=== PATIENT | male | born 1955 | race Caucasian/White ===

== ENCOUNTER 2020-04-23 09:50 | Outpatient (REF) | payer OTHER, SELFPAY ==
[2020-04-23 11:28] LABS: Alanine Aminotransferase 48 U/L (0-40); Albumin Level 4.4 g/dL (3.5-5.0); Alkaline Phosphatase 70 U/L (39-117); Anion Gap 13 (12-20); Aspartate Amino Transferase 25 U/L (5-37); Bilirubin Total 0.4 mg/dL (0.0-1.0); Blood Urea Nitrogen 19 mg/dL (9-16); Carbon Dioxide 30 mmol/L (22-29); Chloride 102 mmol/L (96-108); Cholesterol 209 mg/dL; Estimated Glomerular Filt Rate > 60; Glucose Fasting 113 mg/dL (60-99); HDL Cholesterol 47 mg/dL; LDL Cholesterol Calculated 139 mg/dl; Potassium 4.6 mmol/L (3.3-5.1); Sodium 140 mmol/L (135-145); Triglycerides 117 mg/dL
[2020-04-23 11:55] LABS: Prostate Specific Antigen Scr 6.12 ng/mL (<0.05-4.0); TSH reflex Free T4 2.18 uIU/mL (0.32-4.0)
== END 2020-04-23 09:51 | disposition home or self-care (01) ==
LOC: HO.WFDLDS 09:50
PROVIDERS: PCP Family Medicine; Visit Provider Family Medicine
DX: Z00.00 Encounter for general adult medical examination without abnormal findings (principal); E78.5 Hyperlipidemia, unspecified; Z12.5 Encounter for screening for malignant neoplasm of prostate
CPT/HCPCS: 36415; 80053; 80061; 84153; 84443

== ENCOUNTER → 2020-05-22 10:05 | Outpatient (BNVA) | payer OTHER, SELFPAY | PROVIDERS: PCP Family Medicine; Visit Provider Physician Assistant ==

== ENCOUNTER 2020-06-07 08:27 | Outpatient (REF) | payer OTHER, SELFPAY ==
[2020-06-07 11:20] LABS: Alanine Aminotransferase 56 U/L (0-40); Albumin Level 4.4 g/dL (3.5-5.0); Alkaline Phosphatase 64 U/L (39-117); Anion Gap 12 (12-20); Aspartate Amino Transferase 29 U/L (5-37); Bilirubin Total 0.8 mg/dL (0.0-1.0); Blood Urea Nitrogen 23 mg/dL (9-16); Calcium 9.2 mg/dL (8.4-10.2); Carbon Dioxide 29 mmol/L (22-29); Chloride 103 mmol/L (96-108); Estimated Glomerular Filt Rate > 60; Glucose Fasting 115 mg/dL (60-99); Potassium 4.6 mmol/L (3.3-5.1); Sodium 139 mmol/L (135-145)
== END 2020-06-07 08:28 | disposition home or self-care (01) ==
LOC: HO.WFDLDS 08:27
PROVIDERS: Visit Provider Family Medicine
DX: R74.01 Elevation of levels of liver transaminase levels (principal)
CPT/HCPCS: 36415; 80053

== ENCOUNTER 2020-07-24 08:14 | Outpatient (REF) | payer OTHER, SELFPAY ==
--- NOTE | ~2020-07-24 | US_ITS ---
EXAMINATION: US ABDOMEN LIMITED WITH LIVER ELASTOGRAPHY CLINICAL INFORMATION: Elevated transaminase levels. COMPARISON: None. TECHNIQUE: Real-time imaging of the abdominal viscera. Noninvasive ultrasound liver fibrosis assessment is performed using González ElastPQ point quantification shear wave elastography (pSWE) with a C5-2 MHz transducer. Multiple elastography samples are obtained. FINDINGS: PANCREAS: Normal. The visualized pancreatic head and body are normal in appearance. The remainder of the pancreas is obscured from visualization by the overlying bowel gas. LIVER: Normal. The liver demonstrates normal size, contour and echogenicity. No focal lesion or intrahepatic biliary duct dilatation. The right lobe measures 15.4 cm in length. The left lobe measures 10.8 cm in length. Portal flow is towards the liver (hepatopetal). Shear wave liver elastography median stiffness is 1.79 m/s (reference: normal median stiffness is 1.3 m/s or less). IQR/median stiffness to assess sampling precision is 0.10 (reference: good quality data set is IQR/median stiffness of 0.15 or less). GALLBLADDER: Normal. The gallbladder is physiologically distended without evidence of stones, sludge, polyps, wall thickening or pericholecystic fluid. COMMON BILE DUCT: Normal in caliber measuring 0.3 cm in diameter. RIGHT KIDNEY: Normal. No hydronephrosis. No renal calculi or focal parenchymal lesions. The kidney measures 11.6 cm in maximum dimension. FREE FLUID: None. US/US abdomen li w elastography IMPRESSION: 1. No alteration of hepatic echotexture seen. There is no focal hepatic mass or biliary ductal dilatation. 2. Liver elastography: Measurements are suggestive of compensated advanced chronic liver disease but need further test for confirmation. REFERENCE: Society of Radiologists in Ultrasound Liver Stiffness Thresholds (2020): LIVER STIFFNESS THRESHOLDS: *Liver Stiffness equal or less than 1.3 m/s: High probability of being normal. *Liver Stiffness less than 1.7 m/s: In the absence of other known clinical signs, rules out compensated advanced chronic liver disease. *Liver Stiffness 1.7-2.1 m/s: Suggestive of compensated advanced chronic liver disease but need further test for confirmation. *Liver Stiffness over 2.1 m/s: Rules in compensated advanced chronic liver disease. *Liver Stiffness over 2.4 m/s: Suggestive of clinically significant portal hypertension. QUALITY OF DATA SET: *IQR/Median value equal or less than 0.15 implies a quality data set. *IQR/Median value over 0.15 implies a poor quality data set. SIGNIFICANT CHANGE FROM PRIOR EXAM: Significant change if liver stiffness measurement is 10% or greater from prior exam. OTHER CONSIDERATIONS: The stage of liver fibrosis may be overestimated in the setting of acute hepatitis, liver inflammation, elevated liver function tests, hepatic vascular congestion, obstructive cholestasis, non-fasting state, and infiltrative diseases such as amyloidosis and lymphoma. In some patients with NAFLD, the liver stiffness thresholds for compensated advanced chronic liver disease may be lower. In causes other than viral hepatitis and NAFLD, liver stiffness thresholds are not well established.
== END 2020-07-24 08:15 | disposition home or self-care (01) ==
LOC: HO.US 08:14
PROVIDERS: Visit Provider Family Medicine
DX: R74.01 Elevation of levels of liver transaminase levels (principal)
CPT/HCPCS: 76705; 76981

== ENCOUNTER 2020-08-02 07:02 | Outpatient (REF) | payer OTHER, SELFPAY ==
[2020-08-02 11:06] LABS: Alanine Aminotransferase 40 U/L (0-40); Albumin Level 4.5 g/dL (3.5-5.0); Alkaline Phosphatase 63 U/L (39-117); Anion Gap 12 (12-20); Aspartate Amino Transferase 29 U/L (5-37); Bilirubin Total 0.6 mg/dL (0.0-1.0); Blood Urea Nitrogen 23 mg/dL (9-16); Calcium 9.3 mg/dL (8.4-10.2); Carbon Dioxide 28 mmol/L (22-29); Chloride 106 mmol/L (96-108); Estimated Glomerular Filt Rate > 60; Glucose Fasting 99 mg/dL (60-99); Potassium 4.3 mmol/L (3.3-5.1); Sodium 142 mmol/L (135-145); Total Protein 6.8 g/dL (6.5-8.0)
== END 2020-08-02 07:03 | disposition home or self-care (01) ==
LOC: HO.WFDLDS 07:02
PROVIDERS: Visit Provider Family Medicine
DX: R74.01 Elevation of levels of liver transaminase levels (principal); R73.01 Impaired fasting glucose
CPT/HCPCS: 36415; 80053

== ENCOUNTER 2020-08-14 10:22 | Day surgery (SDC) | payer OTHER, SELFPAY ==
[2020-08-07 15:04] VITALS: BMI 31.3
--- NOTE | 2020-08-13 10:34 | P.CONAN_ITS ---
Documented by User: Hannah Gonsales 08/13/20 10:35 HPI - Anesthesia Eval Consult details Narrative: 65yo M for Colonoscopy +ETOH daily PMFSH Active Problems Active Problems: All Active Problems (Updated 08/07/20 @ 15:03 by Kathleen Rojas) Borderline hyperlipidemia (Acute) Screening for colon cancer (Acute) Laboratory examination ordered as part of a routine general medical examination (Acute) Screening for prostate cancer (Acute) Annual physical exam (Acute) Elevated fasting blood sugar (Acute) Elevated PSA measurement (Acute) Elevated transaminase level (Acute) History of colon polyps (Acute) Past Medical History Medical History Bloating Borderline diabetes Borderline hyperlipidemia Umbilical hernia Family History Family History Father Angina pectoris Mother Asthma Surgical History Surgical History H/O colonoscopy Social History Social History Household Members: Family and None Housing: House Alcohol intake: current Alcohol intake frequency: 3 or more drinks per day Alcohol type: beer Patient Tobacco Use Status: Former Tobacco user Tobacco use type: Cigarette Advance Directives Information Provided: No service: No Current occupational status: employed Current occupation: [employer] Allergies Allergy/AdvReac Type Severity Reaction Status Date / Time No Known Allergies Allergy Verified 08/14/20 10:35 Exam Exam Date and Time: August 13, 2020 1034 Height,Weight and Vital Signs: Height 5 ft 9 in Weight 96.162 kg Pertinent Lab Results Pertinent Lab Results: Laboratory Tests 08/02/20 09:25 Sodium 142 Potassium 4.3 Chloride 106 Carbon Dioxide 28 BUN 23 H Creatinine 0.94 Assessment and Plan Assessment Anesthesia Assessment: Chart Reviewed Documented by User: Reta Adler 08/14/20 11:58 PMFSH Past Medical History Medical History Bloating Borderline diabetes Borderline hyperlipidemia Umbilical hernia Family History Family History Father Angina pectoris Mother Asthma Surgical History Surgical History H/O colonoscopy Social History Social History Household Members: Family and None Housing: House Alcohol intake: current Alcohol intake frequency: 3 or more drinks per day Alcohol type: beer Patient Tobacco Use Status: Former Tobacco user Tobacco use type: Cigarette Advance Directives Information Provided: No service: No Current occupational status: employed Current occupation: [employer] Allergies Allergy/AdvReac Type Severity Reaction Status Date / Time No Known Allergies Allergy Verified 08/14/20 10:35 Exam Airway Mallampati Class: II TM Dist: >3cm Neck ROM: Full Heart: RRR Lungs: CTA Assessment and Plan Assessment Anesthesia Assessment: Anesthesia Plan Discussed and Chart Reviewed Final Anesthetic Review NPO: Yes ASA Class: II Final Preanesthetic Review: Meds/Allgs Chart Reviewed, Consent Obtained/Reviewed and Anes Risks/Benef Reviewed Patient Risk: Low Procedure Risk: Low Anesthetic Plan Anesthetic Plan: MAC: Disposition: Standard PACU
[2020-08-14 10:39] VITALS: BP 141/81; PULSE 83; RESP 16; TEMP 36.4; O2SAT 96
[2020-08-14] MEDS: Lactated Ringers 1,000 ML 100 ML IVCONT (11:00)
--- NOTE | 2020-08-14 11:33 | PC.NURSE ---
Patient stated he drank 3oz of water at [address] Adler notified. No new orders. Okay to proceed with procedure.
--- NOTE | 2020-08-14 11:40 | W.PM.OPN ---
Operative Note Operative Note Date of Service: 08/14/20 Narrative: Pre-op diagnosis: colon cancer screening, history of colon polyps Post-op diagnosis: other ( colon polyps, diverticulosis, hemorrhoids) Procedure: COLONOSCOPY TILL CECUM WITH BIOPSIES AND SNARE POLYPECTOMY Consent: Indications for the procedure and potential complications of bleeding, perforation, reaction to medications and missed diagnosis were discussed with the patient and informed consent was obtained. Instrument: Olympus CF H 190 L variable stiffness adult colonoscope Monitoring: Vital signs and clinical assessment, intermittent blood pressure monitoring, continuous EKG monitoring, Pulse oximetry and Carbon Dioxide monitoring were done throughout the procedure. Colon withdrawl time was 22 minutes. Procedure: The patient was placed in the left lateral decubitis position and pre-procedure medications were administered. After a digital rectal examination of the ano-rectum, the video colonoscope was inserted into the rectum and advanced through the colon to the cecum. The colonoscope was slowly withdrawn in a retrograde panoramic fashion and the colon mucosa was carefully examined including a retroflexed view of the rectum. Findings and interventions are described below. Procedure Difficulty: Without difficulty Findings: Terminal Ileum: Not evaluated Cecum: Normal Ascending Colon: Normal Transverse Colon: Normal Descending Colon: Normal Sigmoid Colon: A 7-8 mm diminutive appearing polyp which was biopsied. Moderate diverticulosis Rectum: A 12-15 mm sessile polyp removed with a hot snare Ano-rectum: Moderate internal hemorrhoids Colon preparation: Good after copious irrigation Impression and Post Procedure Diagnosis: Colonoscopy Findings: One medium sized polyp removed, a 2nd diminutive appearing polyp was biopsied. Moderate diverticulosis seen in the sigmoid colon Moderate hemorrhoids on retroflexed exam. Plan: Await pathology results Patient has an appointment on 08/28/20 in the [facility] with [facility] [place]. Repeat Colonoscopy interval based on path results - in 3-5 years if polyps are adenomatous and due to a hx of adenomatous colon polyps. Above findings were reviewed with the patient and colon polyps and diverticulosis handouts were given in the discharge area Surgeon: Olivier Bender MD Anesthesia: MAC (Jennifer Corbin CRNA & Esperanza June CRNA) Was an Press Operator Assistant used for this Procedure?: Yes Press Operator Assistant: Becca Zuniga Estimated blood loss (mL): 0 Pathology: other (A. SIGMOID POLYP B. RECTAL POLYP) Condition: stable Disposition: PACU
--- NOTE | 2020-08-14 11:40 | MHC.SHP ---
Pre-Procedural Eval Section A Date of Service: 08/14/20 The patient is an INPATIENT: No The History & Physical has been completed within 30 days and I have reviewed it.: No Section B Chief Complaint: Screening Details of Present Illness: Colon cancer screening, history of colon polyps Relevant Family History (Specify if Yes): No Relevant Social History: Tobacco Use (past smoker) Present Medications: see Short Stay Collaborative assessment Medical History: Significant History (Bloating Borderline diabetes Umbilical hernia) History of Previous Operations: Relevant previous surgery/procedure and date(s) ( history of colonoscopy) Allergies: Allergies Allergy/AdvReac Type Severity Reaction Status Date / Time No Known Allergies Allergy Verified 08/14/20 10:35 Review of Systems Sugical H&P ROS: Negative: Constitution, Cardiovascular and Gastrointestinal and Yes, Specify: Respiratory (chronic cough) Exam Surgical H&P Exam: Normal: Heart, Normal: Lungs, Normal: Extremities and Normal: Abdomen Plan Diagnosis/Plan: Unchanged I have reviewed the history and physical and performed a pertinent physical examination on my patient. No changes have occurred unless specified.
[2020-08-14 11:46] VITALS: BP 152/68; PULSE 75; RESP 16; TEMP 36.6; O2SAT 99
[2020-08-14 12:31] VITALS: BP 138/75; PULSE 73; RESP 16; TEMP 36.3; O2SAT 98
== END 2020-08-14 14:30 | disposition home or self-care (01) ==
PROVIDERS: PCP Family Medicine; Visit Provider Internal Medicine Gastroenterology
PROC: 0DJD8ZZ Inspection of Lower Intestinal Tract, Via Natural or Artificial Opening Endoscopic (ICD-10-PCS; CPT 45378; principal; 2020-08-14 11:30)
DX: Z12.11 Encounter for screening for malignant neoplasm of colon (principal); K63.5 Polyp of colon; K62.1 Rectal polyp; K57.30 Diverticulosis of large intestine without perforation or abscess without bleeding; K64.8 Other hemorrhoids; R73.03 Prediabetes; Z86.010 Personal history of colon polyps; Z87.891 Personal history of nicotine dependence
CPT/HCPCS: 45385; 45380; 88305

== ENCOUNTER → 2020-08-28 11:58 | Outpatient (BNVA) | payer OTHER, SELFPAY | PROVIDERS: PCP Family Medicine; Referring Provider Family Medicine; Visit Provider Physician Assistant ==

== ENCOUNTER 2020-08-28 12:41 | Outpatient (REF) | payer OTHER, SELFPAY ==
[2020-08-28 15:04] LABS: Prostate Specific Antigen Scr 6.38 ng/mL (<0.05-4.0)
== END 2020-08-28 12:42 | disposition home or self-care (01) ==
LOC: HO.WFDLDS 12:41
PROVIDERS: Visit Provider Physician Assistant
DX: Z12.5 Encounter for screening for malignant neoplasm of prostate (principal); R97.20 Elevated prostate specific antigen [PSA]; K57.30 Diverticulosis of large intestine without perforation or abscess without bleeding; K64.9 Unspecified hemorrhoids; Z86.010 Personal history of colon polyps
CPT/HCPCS: 36415; 84153

== ENCOUNTER 2021-02-04 10:27 | Outpatient (REF) | payer MEDICARE, SELFPAY ==
[2021-02-04 14:42] LABS: Alanine Aminotransferase 56 U/L (0-40); Albumin Level 4.5 g/dL (3.5-5.0); Alkaline Phosphatase 62 U/L (39-117); Aspartate Amino Transferase 29 U/L (5-37); Bilirubin Direct 0.3 mg/dL (0.0-0.5); Bilirubin Total 0.8 mg/dL (0.0-1.0); Total Protein 7.3 g/dL (6.5-8.0)
== END 2021-02-04 10:28 | disposition home or self-care (01) ==
LOC: HO.WFDLDS 10:27
PROVIDERS: Visit Provider Family Medicine
DX: Z12.5 Encounter for screening for malignant neoplasm of prostate (principal); R74.01 Elevation of levels of liver transaminase levels
CPT/HCPCS: 36415; 80076; 84153

== ENCOUNTER 2021-03-14 10:10 | Outpatient (REF) | payer MEDICARE, SELFPAY ==
--- NOTE | ~2021-03-14 | US_ITS ---
EXAMINATION: US ABDOMEN LIMITED WITH LIVER ELASTOGRAPHY CLINICAL INFORMATION: R74.01 - Elevation of levels of liver transaminase levels COMPARISON: Abdominal ultrasound with liver elastography 07/24/2020. TECHNIQUE: Real-time imaging of the abdominal viscera. Noninvasive ultrasound liver fibrosis assessment is performed using González ElastPQ point quantification shear wave elastography (2D-SWE) with a C5-2 MHz transducer. Multiple elastography samples are obtained. FINDINGS: PANCREAS: The visualized pancreas is normal in size and contour and echogenicity. There is no pancreatic ductal distention or retroperitoneal effusion. Portion pancreatic tail is obscured by bowel gas and not completely imaged. LIVER: Liver is within normal size and smooth in contour. There is increased hepatic parenchymal echogenicity which may be associated with hepatic steatosis. There is no focal hepatic parenchymal lesion or intrahepatic ductal dilatation. The right lobe measures 17.4 cm in length. The left lobe measures 11.7 cm in length. Portal flow is towards the liver (hepatopetal). Shear wave liver elastography median stiffness is 1.89 m/s (reference: normal median stiffness is 1.3 m/s or less). IQR/median stiffness to assess sampling precision is 0.12 (reference: good quality data set is IQR/median stiffness of 0.15 or less). This is compared with prior measurement ultrasound 07/24/2020 of 1.79 m/s (5.5% change from prior exam, not statistically significant). GALLBLADDER: Normal. The gallbladder is physiologically distended without evidence of stones, sludge, polyps, wall thickening or pericholecystic fluid. COMMON BILE DUCT: Normal in caliber measuring 0.3 cm in diameter. RIGHT KIDNEY: Normal. No hydronephrosis. No renal calculi or focal parenchymal lesions. The kidney measures 11.8 cm in maximum dimension. FREE FLUID: None. US/US abdomen li w elastography IMPRESSION: 1. Liver within normal size. Increased parenchymal density consistent with hepatic steatosis. No focal parenchymal lesions. Portal flow towards the liver. 2. Liver elastography: Measurements are suggestive of compensated advanced chronic liver disease but need further test for confirmation. No statistically significant change from prior exam 07/24/2020. 3. No cholelithiasis or biliary ductal dilatation. REFERENCE: Society of Radiologists in Ultrasound Liver Stiffness Thresholds (2020): LIVER STIFFNESS THRESHOLDS: *Liver Stiffness equal or less than 1.3 m/s: High probability of being normal. *Liver Stiffness less than 1.7 m/s: In the absence of other known clinical signs, rules out compensated advanced chronic liver disease. *Liver Stiffness 1.7-2.1 m/s: Suggestive of compensated advanced chronic liver disease but need further test for confirmation. *Liver Stiffness over 2.1 m/s: Rules in compensated advanced chronic liver disease. *Liver Stiffness over 2.4 m/s: Suggestive of clinically significant portal hypertension. QUALITY OF DATA SET: *IQR/Median value equal or less than 0.15 implies a quality data set. *IQR/Median value over 0.15 implies a poor quality data set. SIGNIFICANT CHANGE FROM PRIOR EXAM: Significant change if liver stiffness measurement is 10% or greater from prior exam. OTHER CONSIDERATIONS: The stage of liver fibrosis may be overestimated in the setting of acute hepatitis, liver inflammation, elevated liver function tests, hepatic vascular congestion, obstructive cholestasis, non-fasting state, and infiltrative diseases such as amyloidosis and lymphoma. In some patients with NAFLD, the liver stiffness thresholds for compensated advanced chronic liver disease may be lower. In causes other than viral hepatitis and NAFLD, liver stiffness thresholds are not well established.
== END 2021-03-14 10:11 | disposition home or self-care (01) ==
LOC: HO.US 10:10
PROVIDERS: Visit Provider Family Medicine
DX: R74.01 Elevation of levels of liver transaminase levels (principal)
CPT/HCPCS: 76705; 76981

== ENCOUNTER 2022-11-06 15:45 | Outpatient (AMB) | payer MEDICARE, SELFPAY ==
--- NOTE | 2022-11-06 16:02 | A.OFFPC_ITS ---
Vital Signs 11/06/22 16:03 Height 5 ft 8 in Weight 203 lb 4 oz BMI 30.9 BP 130/72 Blood Pressure Location Lt brachial Position Sitting Pulse 95 Pulse Source Pulse Oximeter Pulse Oximetry (%) 98 Oxygen Delivery Method Room Air Intake Visit Reasons: Annual PE Intake Note: Patient is here for his physical today. Allergies No Known Allergies Allergy (Verified 10/29/21 08:55) Tobacco use date assessed: 10/29/21 Fall risk assessment: No Falls in past year Last assessed Fall Risk: 11/06/22 Dental Screening Did you have a dental visit in the last 12 months?: Yes Did you have a dental problem in the last 6 months where you did not have access to dental care?: No Was dental information given to patient?: Patient has dentist HPI Annual PE HPI Details 67 y/o male presents for an extended exa m with f/u labs and health maintenance. No recent labs to review. PSA had been high. PFSH Medical History Borderline hyperlipidemia Umbilical hernia Bloating Borderline diabetes Surgical History H/O colonoscopy Family History Father Angina pectoris Mother Asthma Social History Household Members: Family and None Housing: House Alcohol intake: current Alcohol intake frequency: 3 or more drinks per day Alcohol type: beer Patient Tobacco Use Status: Former Tobacco user Tobacco use type: Cigarette e-Cigarette/Vaping Use: Never Used Second Hand Smoke Exposure: No service: No Current occupational status: retired Current occupational exposures/hazards: No Cognitive needs: No Hearing needs: No Vision needs: No Questionnaire PHQ-9 Over the last 2 weeks, how often have you been bothered by any of the following problems? 1. Little interest or pleasure in doing things: not at all 2. Feeling down, depressed, or hopeless: not at all 3. Trouble falling or staying asleep, or sleeping too much: not at all 4. Feeling tired or having little energy: not at all 5. Poor appetite or overeating: not at all 6. Feeling bad about yourself - or that you are a failure or have let yourself or your family down: not at all 7. Trouble concentrating on things, such as reading the newspaper or watching television: not at all 8. Moving or speaking so slowly that other people could have noticed. Or the opposite - being so fidgety or restless that you have been moving around a lot more than usual: not at all 9. Thoughts that you would be better off or of hurting yourself in some way: not at all Total score: 0 Source: Developed by Drs. Aman Barth, Alisson Espinosa, Neno Jasso and colleagues, with an educational rufus from [employer]. Thrive Questionnaire Date Thrive assessed: 02/04/21 I am a: Patient What is your living situation today?: I have a steady place to live Within the past 12 months, did the food you bought not last and you didn't have the money to get more?: Never true Within the past 12 months, did you worry whether your food would run out before you got money to buy more?: Never true Do you have trouble paying for medicines?: No Do you have trouble getting transportation to medical appointments?: No Do you have trouble paying your heating and electricity bill?: No Do you have trouble taking care of your child, family member or friend?: No Do you have trouble with day-to-day activities such as bathing, preparing meals, shopping, managing finances, etc.?: No Are you currently unemployed and looking for a job?: No Are you interested in more education?: Yes AUDIT C Alcohol Use Questionnaire (AUDIT-C) 1. How often do you have a drink containing alcohol?: Monthly or less 2. How many drinks containing alcohol do you have on a typical day when you are drinking?: 3 or 4 3. How often do you have six or more drinks on one occasion?: Never Total Score: 2 IAN-7 AMB Questionnaire IAN-7 Date IAN - 7 assessed: 11/06/22 Feeling nervous, anxious, or on edge: 0 = Not at all Not being able to stop or control worryin = Not at all Worrying too much about different things: 0 = Not at all Trouble relaxin = Not at all Being so restless that it is hard to sit still: 0 = Not at all Becoming easily annoyed or irritable: 0 = Not at all Feeling afraid as if something awful might happen: 0 = Not at all Total IAN-7 score (0-4 normal; 5-9 mild; 10-14 moderate; 15-21 severe): 0 Source: Developed by Drs. Aman Barth, Alisson Espinosa, Neno Jasso and colleagues, with an educational rufus from [employer]. Review of Systems Const Denies chills, Denies fatigue, Denies fever(s), Denies headache(s) and Denies weakness Eyes Denies change in vision ENT Denies dizziness, Denies headache(s), Denies hearing loss, Denies nasal congestion, Denies sinus pain, Denies sinus pressure and Denies sore throat Card Denies chest pain, Denies lightheadedness, Denies dyspnea and Denies other (palpitations) Resp Denies cough, Denies dyspnea and Denies wheezing GI Denies abdominal pain, Denies melena, Denies hematochezia, Denies change in bowel habits, Denies dyspepsia and Denies nausea Denies hematuria and Denies dysuria Musc Denies abnormal gait, Denies myalgias, Denies arthralgias, Denies numbness and Denies tingling Skin/Breast Denies rash, Denies unusual bruising and Denies wounds Neuro Denies abnormal gait, Denies dizziness, Denies headache(s), Denies memory loss, Denies numbness, Denies Sensory deficit (Neuro), Denies tingling and Denies weakness Psych Denies anxiety, Denies depression and Denies memory loss Endo Denies cold intolerance, Denies fatigue, Denies heat intolerance, Denies polydipsia and Denies polyuria Dioni/Lymph Denies easy bleeding and Denies easy bruising Aller/Immun Denies wheezing Physical exam (Primary Care) Vital Signs: Last Vital Signs Pulse 95 11/06/22 16:03 BP 130/72 11/06/22 16:03 Pulse Ox 98 11/06/22 16:03 Oxygen Delivery Method Room Air 11/06/22 16:03 BMI result Body Mass Index 30.9 Tobacco/Smoking Status: Tobacco use Status Tobacco use date assessed 10/29/21 11/06/22 16:11 Patient Tobacco Use Status Former Tobacco user 11/06/22 16:11 Tobacco use type Cigarette 11/06/22 16:11 e-Cigarette/Vaping Use Never Used 11/06/22 16:11 PHQ-9: PHQ-9 Score PHQ-9: Total score 0 11/06/22 16:23 Thrive Assessment: Date of Thrive Assessment Date Thrive assessed 02/04/21 11/06/22 16:11 Const General: no acute distress, well developed, alert and awake Nutritional Appearance: well nourished Orientation/consciousness: patient oriented x3 HENMT Head: Yes normocephalic and Yes atraumatic Ears: hearing grossly normal bilaterally and TM's normal bilaterally General nose exam: Normal external nose present and Normal nares present Mouth: Normal oral and palatal mucosa present and moist mucous membranes Teeth and gingiva: dentition normal Throat: Yes posterior oropharynx normal Eyes General: appearance normal, both eyes and all related structures Pupils: Equal, round and reactive pupils present and Pupil accommodation reflex normal EOM: EOMs intact bilaterally Neck Neck: Yes normal visual inspection, Yes no lymphadenopathy and Yes trachea midline Thyroid: Thyroid normal Carotids: no bruits Lymphatic: no lymphadenopathy noted Chest Chest palpation & inspection: normal inspection of the chest Resp Effort & Inspection: normal respiratory effort Auscultation: clear to auscultation bilaterally Cardio Rate: regular rate Rhythm: regular rhythm Heart sounds: S1 normal heart sound present, S2 normal heart sound present, no gallops, no murmurs and no rubs Bruits: no abdominal aortic bruits and no carotid bruits GI Palpation (GI): No Abdominal aortic bruit present, Soft to palpation, nontender, No hepatosplenomegaly present and No Rebound tenderness present Auscultation: normal bowel sounds General: Yes no CVA tenderness Back/Spine/Pelvis Back: no CVA tenderness Cervical Spine: cervical ROM normal and No Cervical spine tenderness Thoracic/Lumbar Spine: thoraco-lumbar ROM normal, No pain with thoraco-lumbar ROM, No thoracic spinal tenderness and No lumbar spinal tenderness Skin Lesions: no lesions Rashes: no rashes Trauma: no lacerations or abrasions Wounds: no wounds Nails: normal Neuro General: patient oriented x3 Cranial nerves: Yes Equal, round and reactive pupils present Cognition (Neuro): normal cognition Gait exam (Neuro): Normal gait present Motor exam (neuro): 5/5 motor strength present throughout Sensory Exam: No Sensory deficit (Neuro) Deep tendon reflexes (DTR's): Right patellar reflex intensity grade: 2+ and Left patellar reflex intensity grade: 2+ Extrem General: Yes normal to inspection and No edema Psych Appearance: grossly normal Affect: normal affect Attitude: cooperative Thought process: Normal thought process present Assessment and Plan Assessment & Plan (1) Elevated liver enzymes: Code(s): R74.8 - Abnormal levels of other serum enzymes Plan: Elevated liver enzymes in the past. Patient is still consuming about 5 alcoholic drinks per night Recheck liver enzymes See below (2) Alcohol consumption of more than two drinks per day: Code(s): Z78.9 - Other specified health status Plan: As mentioned above patient is drinking about 5 alcoholic beverages per night. He does not like water or many other things to drink but does like soda. He will try switching some of his drinks to diet soda and will continue to wean down his alcoholic beverages. (3) Prostate cancer: Code(s): C61 - Malignant neoplasm of prostate Plan: History of prostate cancer now S/P prostatectomy Follow-up with urology has recommended (4) History of prostatectomy: Code(s): Z90.79 - Acquired absence of other genital organ(s) Plan: As above (5) Screening for colon cancer: Code(s): Z12.11 - Encounter for screening for malignant neoplasm of colon Plan: Will discuss at follow-up appointment (6) Annual physical exam: Code(s): Z00.00 - Encounter for general adult medical examination without abnormal findings Plan: 67-year-old male presents for extended exam Encouraged healthy diet and exercise Coding Level of Care Code Est Pt Level 4 (82071) Diagnoses Elevated liver enzymes R74.8 Alcohol consumption of more than two drinks per day Z78.9 Prostate cancer C61 History of prostatectomy Z90.79 Screening for colon cancer Z12.11 Annual physical exam Z00.00
[2022-11-06 16:03] VITALS: BP 130/72; PULSE 95; O2SAT 98; BMI 30.9
== END 2022-11-06 16:51 | disposition home or self-care (01) ==
PROVIDERS: PCP Family Medicine; Visit Provider Family Medicine
DX: R74.8 Abnormal levels of other serum enzymes (principal); Z78.9 Other specified health status; C61 Malignant neoplasm of prostate; Z90.79 Acquired absence of other genital organ(s); Z12.11 Encounter for screening for malignant neoplasm of colon; Z00.00 Encounter for general adult medical examination without abnormal findings
CPT/HCPCS: 99214

== ENCOUNTER 2022-11-24 13:02 | Outpatient (REF) | payer MEDICARE, SELFPAY | END 2022-11-24 13:03 | disposition home or self-care (01) | LOC: HO.WFDLDS 13:02 | PROVIDERS: Visit Provider Family Medicine | DX: Z00.00 Encounter for general adult medical examination without abnormal findings (principal); Z12.5 Encounter for screening for malignant neoplasm of prostate; E53.8 Deficiency of other specified B group vitamins | CPT/HCPCS: 36415; 80053; 80061; 82607; 82746; 84153; 84443; 85025 ==

== ENCOUNTER 2022-11-27 15:23 | Outpatient (AMB) | payer MEDICARE, SELFPAY ==
--- NOTE | 2022-11-27 15:19 | A.OFFPC_ITS ---
Intake Visit Reasons: f/u CPE-labs Intake Note: Patient is calling to follow up on his labs today. Allergies No Known Allergies Allergy (Verified 11/27/22 15:20) Tobacco use date assessed: 11/27/22 Fall risk assessment: No Falls in past year Last assessed Fall Risk: 11/27/22 HPI f/u CPE-labs HPI Details 67 y/o male presents to f/u CPE-labs via telemedicine. Labs were drawn 11/24/22. Reviewed labs with pt. Elevated fasting glucose of 102. TC 213. LDL 141. HDL 54. PFSH Medical History Borderline hyperlipidemia Umbilical hernia Bloating Borderline diabetes Surgical History H/O colonoscopy Family History Father Angina pectoris Mother Asthma Social History Household Members: Family and None Housing: House Alcohol intake: current Alcohol intake frequency: 3 or more drinks per day Alcohol type: beer Patient Tobacco Use Status: Former Tobacco user Tobacco use type: Cigarette e-Cigarette/Vaping Use: Never Used Second Hand Smoke Exposure: No service: No Current occupational status: retired Current occupational exposures/hazards: No Cognitive needs: No Hearing needs: No Vision needs: No Questionnaire Thrive Questionnaire Date Thrive assessed: 02/04/21 IAN-7 AMB Questionnaire IAN-7 Date IAN - 7 assessed: 11/06/22 Source: Developed by Drs. Aman Barth, Alisson Espinosa, Neno Jasso and colleagues, with an educational rufus from [employer]. Review of Systems Const Denies chills, Denies fatigue, Denies fever(s), Denies headache(s) and Denies weakness ENT Denies dizziness and Denies headache(s) Card Denies dyspnea Resp Denies cough, Denies dyspnea, Denies wheezing and Denies other (shortness of breath) Musc Denies numbness and Denies tingling Neuro Denies dizziness, Denies headache(s), Denies numbness, Denies tingling and Denies weakness Psych Denies anxiety and Denies depression Endo Denies fatigue Aller/Immun Denies wheezing Physical exam (Primary Care) Tobacco/Smoking Status: Tobacco use Status Tobacco use date assessed 11/27/22 11/27/22 15:21 Patient Tobacco Use Status Former Tobacco user 11/27/22 15:21 Tobacco use type Cigarette 11/27/22 15:21 e-Cigarette/Vaping Use Never Used 11/27/22 15:21 Thrive Assessment: Date of Thrive Assessment Date Thrive assessed 02/04/21 11/27/22 15:21 Telehealth Telehealth Location of provider rendering services: practice address Location of patient: address on file Patient Identification confirmed using: Name, : Yes Telehealth method: voice only Patient verbally consented to treatment: Yes Patient verbally consented to billing insurance company: Yes Patient informed of any privacy concerns related to visit: Yes Minutes spent on Phone/Video with Pt.: 12 Assessment and Plan Assessment & Plan (1) Elevated fasting blood sugar: Code(s): R73.01 - Impaired fasting glucose Plan: Mildly?elevated?fasting?blood?sugar Encouraged?decrease?in?dietary?sugars. Patient?wants?to?switch?from?alcohol?beverages?2?soft?drinks. Advised?he?consider?diet?soft?d rinks?and?preferably?drink?those?in?moderation?as?well. Has?some?issues?with?insight?into?dietary?changes.??Will?ask?the?nurse?navigator ?to?review (2) Hyperlipidemia: Code(s): E78.5 - Hyperlipidemia, unspecified Plan: LDL?cholesterol?is?elevated.??His?HDL?is?good?and?ratios?are?rather?goo d?as?well. Patient?could?use?further?insight?into?dietary?changes.??Referred?to?nurse?navig ator Will?repeat?lipids?in?a?few?months. Orders: Orders Lipid Panel Today Z00.00 - Encounter for general adult medical examination without abnormal findings Comprehensive [place]. Panel Fast Today Z00.00 - Encounter for general adult medical examination without abnormal findings Hemoglobin A1c Today R73.01 - Impaired fasting glucose Referrals Nurse Navigator Referral E78.5 - Hyperlipidemia, unspecified, R73.01 - Impaired fasting glucose Coding Level of Care Code Tele Est Pt Level 2 (26647) Diagnoses Elevated fasting blood sugar R73.01 Hyperlipidemia E78.5
== END 2022-11-27 15:45 ==
LOC: HO.HMGFM 15:23
PROVIDERS: PCP Family Medicine; Visit Provider Family Medicine
DX: R73.01 Impaired fasting glucose (principal); E78.5 Hyperlipidemia, unspecified
CPT/HCPCS: 99442

== ENCOUNTER 2023-01-20 09:53 | Outpatient (REF) | payer MEDICARE, SELFPAY ==
[2023-01-20 10:49] LABS: Appearance Urine Clear; Color Urine Yellow; Glucose Urine UA Negative (Negative); Leukocyte Esterase Urine Negative (Negative); Nitrite Urine Negative (Negative); Urine Blood Negative (Negative); Urine Ketones Negative (Negative); Urine Protein Negative (Neg-Trace)
[2023-01-20 11:04] LABS: Estimated Average Glucose 97 mg/dL; Hemoglobin A1C 115.8331 umol/L
[2023-01-20 12:31] LABS: Alanine Aminotransferase 49 U/L (0-40); Albumin Level 4.5 g/dL (3.5-5.0); Alkaline Phosphatase 56 U/L (39-117); Anion Gap 13 (12-20); Aspartate Amino Transferase 29 U/L (5-37); Bilirubin Total 0.8 mg/dL (0.0-1.0); Blood Urea Nitrogen 12 mg/dL (9-16); Calcium 9.5 mg/dL (8.4-10.2); Carbon Dioxide 28 mmol/L (22-29); Chloride 104 mmol/L (96-108); Cholesterol 227 mg/dL (<200); Estimated Glomerular Filt Rate > 60; Glucose Fasting 100 mg/dL (60-99); HDL Cholesterol 54 mg/dL (>40); LDL Cholesterol Calculated 153 mg/dL (<100); Potassium 4.8 mmol/L (3.3-5.1); Sodium 140 mmol/L (135-145); Total Protein 7.3 g/dL (6.5-8.0); Triglycerides 104 mg/dL (<150)
[2023-01-20 12:37] LABS: Creatinine Urine 74.91 mg/dL; Microalbumin Urine < 5.0 mg/L
== END 2023-01-20 09:54 | disposition home or self-care (01) ==
LOC: HO.WFDLDS 09:53
PROVIDERS: Visit Provider Family Medicine
DX: Z00.00 Encounter for general adult medical examination without abnormal findings (principal); R73.01 Impaired fasting glucose; I10 Essential (primary) hypertension
CPT/HCPCS: 36415; 80053; 80061; 81003; 82043; 82570; 83036

== ENCOUNTER 2023-01-22 11:21 | Outpatient (AMB) | payer MEDICARE, SELFPAY ==
--- NOTE | 2023-01-22 11:28 | MHC.PC.OV ---
Vital Signs 01/22/23 11:29 Height 5 ft 8 in Weight 200 lb 6 oz BMI 30.5 BP 122/56 L Blood Pressure Location Lt brachial Position Sitting Respiration 13 Pulse 73 Pulse Source Pulse Oximeter Pulse Oximetry (%) 100 Oxygen Delivery Method Room Air Intake Visit Reasons: f/u elevated liver enzymes, see comments Intake Note: Patient is here to follow up for labs. Patient reports no concerns at this time. [employer] Required: No Accompanied by: Self / Same As Patient Allergies No Known Allergies Allergy (Verified 01/22/23 11:36) Tobacco use date assessed: 11/27/22 HPI f/u elevated liver enzymes, see comments HPI Details 68 y/o male presents to f/u labs including lipids, liver enzymes and mildly elevated fasting blood sugars. Labs were drawn 01/20/23. Reviewed labs with pt. A1c 5.0%. Elevated ALT of 49. Pt notes he does drink EtOH, 3-4 beers a day. TC 227. LDL 153. HDL 54. PFSH Medical History Borderline hyperlipidemia Umbilical hernia Bloating Borderline diabetes Surgical History H/O colonoscopy Family History Father Angina pectoris Mother Asthma Social History Household Members: Family and None Housing: House Alcohol intake: current Alcohol intake frequency: 3 or more drinks per day Alcohol type: beer Patient Tobacco Use Status: Former Tobacco user Tobacco use type: Cigarette e-Cigarette/Vaping Use: Never Used Second Hand Smoke Exposure: No service: No Current occupational status: retired Current occupational exposures/hazards: No Cognitive needs: No Hearing needs: No Vision needs: No Questionnaire Thrive Questionnaire Date Thrive assessed: 01/22/23 I am a: Patient What is your living situation today?: I have a steady place to live Within the past 12 months, did the food you bought not last and you didn't have the money to get more?: Never true Within the past 12 months, did you worry whether your food would run out before you got money to buy more?: Never true Do you have trouble paying for medicines?: No Do you have trouble getting transportation to medical appointments?: No Do you have trouble paying your heating and electricity bill?: No Do you have trouble taking care of your child, family member or friend?: No Do you have trouble with day-to-day activities such as bathing, preparing meals, shopping, managing finances, etc.?: No Are you currently unemployed and looking for a job?: No Are you interested in more education?: No Please select the resources that you would like help with: None Currently or been in a relationship where the following occur: no concerns reported IAN-7 AMB Questionnaire IAN-7 Date IAN - 7 assessed: 11/06/22 Source: Developed by Drs. Aman Barth, Alisson Espinosa, Neno Jasso and colleagues, with an educational rufus from [employer]. Review of Systems Const Denies chills, Denies fatigue, Denies fever(s), Denies headache(s) and Denies weakness ENT Denies dizziness and Denies headache(s) Card Denies dyspnea Resp Denies cough, Denies dyspnea, Denies wheezing and Denies other (shortness of breath) Musc Denies numbness and Denies tingling Neuro Denies dizziness, Denies headache(s), Denies numbness, Denies tingling and Denies weakness Psych Denies anxiety and Denies depression Endo Denies fatigue Aller/Immun Denies wheezing Physical exam (Primary Care) Vital Signs: Last Vital Signs Pulse 73 01/22/23 11:29 Resp 13 01/22/23 11:29 BP 122/56 L 01/22/23 11:29 Pulse Ox 100 01/22/23 11:29 Oxygen Delivery Method Room Air 01/22/23 11:29 BMI result Body Mass Index 30.5 Tobacco/Smoking Status: Tobacco use Status Tobacco use date assessed 11/27/22 01/22/23 11:29 Patient Tobacco Use Status Former Tobacco user 01/22/23 11:29 Tobacco use type Cigarette 01/22/23 11:29 e-Cigarette/Vaping Use Never Used 01/22/23 11:29 Thrive Assessment: Date of Thrive Assessment Date Thrive assessed 01/22/23 01/22/23 11:44 Currently or been in a relationship where the following occur: no concerns reported Const General: well developed; No acute distress Nutritional Appearance: well nourished Orientation/consciousness: patient oriented x3 [facility] Head: Yes normocephalic and Yes atraumatic Eyes General: appearance normal, both eyes and all related structures Pupils: Equal, round and reactive pupils present EOM: EOMs intact bilaterally Resp Effort & Inspection: normal respiratory effort Neuro General: patient oriented x3 and gait normal Cranial nerves: Yes Equal, round and reactive pupils present Psych Affect: normal affect Assessment and Plan Assessment & Plan (1) Elevated liver enzymes: Code(s): R74.8 - Abnormal levels of other serum enzymes Plan: Mildly?elevated?liver?enzymes.??May?be?multifactorial; advised?decreasing?alcohol?intake, hydrating?well,?avoiding?Tylenol?and?advised?weight?loss. Will?continue?to?follow (2) Hyperlipidemia: Code(s): E78.5 - Hyperlipidemia, unspecified Plan: LDL?cholesterol?increased. Encouraged?diet?low?in?saturated?fats?and?cholesterol,?encouraged?weight?loss Advised?atorvastatin.??Patient?would?like?to?trial?another?3?months?of?lifestyle?changes. Will?continue?lifestyle?changes?but?we?discussed?that?if?he?is?still?having?difficulties?controlling?cholesterol?we?should?consider?using?a?statin?medication. Advised?atorvastatin?and?patient?will?look?this?up?and?think?about?it. (3) Elevated fasting blood sugar: Code(s): R73.01 - Impaired fasting glucose Plan: Patient?has?mildly?elevated?fasting?blood?sugars?and?A1c?is?within?normal?range. No?medications?required?at?this?time.??Did?advise?decreasing?sugars?and?starches?in?diet.??Also?advised?decrease?in?beer/alcohol (4) Alcohol consumption of more than two drinks per day: Code(s): Z78.9 - Other specified health status Plan: As?above,?advised?patient?wean?down?alcohol?use He?is?working?on?the Coding Level of Care Code Est Pt Level 4 (76100) Diagnoses Elevated liver enzymes R74.8 Hyperlipidemia E78.5 Elevated fasting blood sugar R73.01 Alcohol consumption of more than two drinks per day Z78.9
[2023-01-22 11:29] VITALS: BP 122/56; PULSE 73; RESP 13; O2SAT 100; BMI 30.5
== END 2023-01-22 12:21 | disposition home or self-care (01) ==
PROVIDERS: PCP Family Medicine; Visit Provider Family Medicine
DX: R74.8 Abnormal levels of other serum enzymes (principal); E78.5 Hyperlipidemia, unspecified; R73.01 Impaired fasting glucose; Z78.9 Other specified health status
CPT/HCPCS: 99214

== ENCOUNTER 2023-05-22 09:17 | Outpatient (REF) | payer MEDICARE, SELFPAY ==
[2023-05-22 12:04] LABS: Alanine Aminotransferase 19 U/L (0-40); Albumin Level 4.2 g/dL (3.5-5.0); Alkaline Phosphatase 58 U/L (39-117); Anion Gap 11 (12-20); Aspartate Amino Transferase 22 U/L (5-37); Bilirubin Total 0.5 mg/dL (0.0-1.0); Blood Urea Nitrogen 14 mg/dL (9-16); Calcium 9.4 mg/dL (8.4-10.2); Carbon Dioxide 29 mmol/L (22-29); Chloride 104 mmol/L (96-108); Cholesterol 172 mg/dL (<200); Estimated Glomerular Filt Rate > 60; Glucose Fasting 91 mg/dL (60-99); HDL Cholesterol 57 mg/dL (>40); LDL Cholesterol Calculated 103 mg/dL (<100); Potassium 4.8 mmol/L (3.3-5.1); Sodium 139 mmol/L (135-145); Total Protein 7.1 g/dL (6.5-8.0); Triglycerides 63 mg/dL (<150)
== END 2023-05-22 09:18 | disposition home or self-care (01) ==
LOC: HO.WFDLDS 09:17
PROVIDERS: Visit Provider Family Medicine
DX: Z00.00 Encounter for general adult medical examination without abnormal findings (principal); E78.5 Hyperlipidemia, unspecified
CPT/HCPCS: 36415; 80053; 80061

== ENCOUNTER 2023-05-28 09:24 | Outpatient (AMB) | payer MEDICARE, SELFPAY ==
[2023-05-28 09:27] VITALS: BP 120/70; PULSE 72; O2SAT 98; BMI 28.5
--- NOTE | 2023-05-28 09:27 | MHC.PC.OV ---
Vital Signs 05/28/23 09:27 Height 5 ft 8 in Weight 187 lb 6 oz BMI 28.5 BP 120/70 Blood Pressure Location Lt brachial Pulse 72 Pulse Source Pulse Oximeter Pulse Oximetry (%) 98 Oxygen Delivery Method Room Air Intake Visit Reasons: f/u hyperlipidemia Intake Note: Patient is here for follow up on hyperlipidemia. Patient is concerned about bronchitis. Allergies No Known Allergies Allergy (Verified 05/28/23 09:30) Medication List - Last Reconciled 05/28/23 by Yg Mittal MD No Known Home Meds Tobacco use date assessed: 05/28/23 Fall risk assessment: No Falls in past year Last assessed Fall Risk: 05/28/23 Dental Screening Dental Screen Date: 05/28/23 Did you have a dental visit in the last 12 months?: Yes Did you have a dental problem in the last 6 months where you did not have access to dental care?: No Was dental information given to patient?: Patient has dentist HPI f/u hyperlipidemia HPI Details 68 y/o male presents to f/u hyperlipidemia. Pt had wanted to trial another 3 months of lifestyle changes last office visit in January. Labs were drawn 05/22/23. Reviewed labs with pt. Triglcyerides 63. TC 172. LDL improved from 153 to 103. HDL 57. Has lost about 13 lbs since last office visit in January - 200 lbs to 187 lbs. He states he has been eating better and has been watching his diet. He exercises every day. Pt has complaints of a post viral cough syndrome. HPI Comments History of Present Illness Details Documentation assistance for gY Mittal MD, was provided by Meño De La Cruz, Quarrying Specialist on 05/28/2023 9:52 AM EST. [place], Dr. Mittal, have read, observed, and verified documentation. PFSH Medical History Borderline hyperlipidemia Umbilical hernia Bloating Borderline diabetes Surgical History H/O colonoscopy Family History Father Angina pectoris Mother Asthma Social History Household Members: Family and None Housing: House Alcohol intake: current Alcohol intake frequency: 3 or more drinks per day Alcohol type: beer Patient Tobacco Use Status: Former Tobacco user Tobacco use type: Cigarette e-Cigarette/Vaping Use: Never Used Second Hand Smoke Exposure: No service: No Current occupational status: retired Current occupational exposures/hazards: No Cognitive needs: No Hearing needs: No Vision needs: No Questionnaire PHQ-9 Over the last 2 weeks, how often have you been bothered by any of the following problems? 1. Little interest or pleasure in doing things: not at all 2. Feeling down, depressed, or hopeless: not at all 3. Trouble falling or staying asleep, or sleeping too much: not at all 4. Feeling tired or having little energy: not at all 5. Poor appetite or overeating: not at all 6. Feeling bad about yourself - or that you are a failure or have let yourself or your family down: not at all 7. Trouble concentrating on things, such as reading the newspaper or watching television: not at all 8. Moving or speaking so slowly that other people could have noticed. Or the opposite - being so fidgety or restless that you have been moving around a lot more than usual: not at all 9. Thoughts that you would be better off or of hurting yourself in some way: not at all Total score: 0 Depression Screening Interpretation: Negative Depression Screening Done: Yes Source: Developed by Drs. Aman Barth, Alisson Espinosa, Neno Jasso and colleagues, with an educational rufus from [employer]. Thrive Questionnaire Date Thrive assessed: 05/28/23 I am a: Patient What is your living situation today?: I have a steady place to live Within the past 12 months, did the food you bought not last and you didn't have the money to get more?: Never true Within the past 12 months, did you worry whether your food would run out before you got money to buy more?: Never true Do you have trouble paying for medicines?: No Do you have trouble getting transportation to medical appointments?: No Do you have trouble paying your heating and electricity bill?: No Do you have trouble taking care of your child, family member or friend?: No Do you have trouble with day-to-day activities such as bathing, preparing meals, shopping, managing finances, etc.?: No Are you currently unemployed and looking for a job?: No Are you interested in more education?: No THRIVE Score: 0 AUDIT C Alcohol Use Questionnaire (AUDIT-C) 1. How often do you have a drink containing alcohol?: 4 or more times a week 2. How many drinks containing alcohol do you have on a typical day when you are drinking?: 3 or 4 3. How often do you have six or more drinks on one occasion?: Daily or almost daily Total Score: 9 IAN-7 AMB Questionnaire IAN-7 Date IAN - 7 assessed: 05/28/23 Feeling nervous, anxious, or on edge: 0 = Not at all Not being able to stop or control worryin = Not at all Worrying too much about different things: 0 = Not at all Trouble relaxin = Not at all Being so restless that it is hard to sit still: 0 = Not at all Becoming easily annoyed or irritable: 0 = Not at all Feeling afraid as if something awful might happen: 0 = Not at all Total IAN-7 score (0-4 normal; 5-9 mild; 10-14 moderate; 15-21 severe): 0 Source: Developed by Drs. Aman Barth, Alisson Espinosa, Neno Jasso and colleagues, with an educational rufus from [employer]. Review of Systems Const Denies chills, Denies fatigue, Denies fever(s), Denies headache(s) and Denies weakness ENT Denies dizziness and Denies headache(s) Card Denies dyspnea Resp Denies cough, Denies dyspnea, Denies wheezing and Denies other (shortness of breath) Musc Denies numbness and Denies tingling Neuro Denies dizziness, Denies headache(s), Denies numbness, Denies tingling and Denies weakness Psych Denies anxiety and Denies depression Endo Denies fatigue Aller/Immun Denies wheezing Physical exam (Primary Care) Vital Signs: Last Vital Signs Pulse 72 05/28/23 09:27 BP 120/70 05/28/23 09:27 Pulse Ox 98 05/28/23 09:27 Oxygen Delivery Method Room Air 05/28/23 09:27 BMI result Body Mass Index 28.5 Tobacco/Smoking Status: Tobacco use Status Tobacco use date assessed 05/28/23 05/28/23 09:32 Patient Tobacco Use Status Former Tobacco user 05/28/23 09:31 Tobacco use type Cigarette 05/28/23 09:31 e-Cigarette/Vaping Use Never Used 05/28/23 09:31 PHQ-9: PHQ-9 Score PHQ-9: Total score 0 05/28/23 09:37 Depression Screening Interpretation: Negative Thrive Assessment: Date of Thrive Assessment Date Thrive assessed 05/28/23 05/28/23 09:37 Const General: well developed; No acute distress Nutritional Appearance: well nourished Orientation/consciousness: patient oriented x3 [facility] Head: Yes normocephalic and Yes atraumatic Eyes General: appearance normal, both eyes and all related structures Pupils: Equal, round and reactive pupils present EOM: EOMs intact bilaterally Resp Effort & Inspection: normal respiratory effort Auscultation: clear to auscultation bilaterally Cardio Rate: regular rate Rhythm: regular rhythm Heart sounds: S1 normal heart sound present, S2 normal heart sound present, no gallops, no murmurs and no rubs Neuro General: patient oriented x3 and gait normal Cranial nerves: Yes Equal, round and reactive pupils present Psych Affect: normal affect Assessment and Plan Assessment & Plan (1) Hyperlipidemia: Code(s): E78.5 - Hyperlipidemia, unspecified Plan: Lipids?are?improved?and?in?normal?range Continue?diet?low?in?saturated?fats?and?cholesterol Continue?weight?loss?and?exercise (2) Alcohol consumption of more than two drinks per day: Code(s): Z78.9 - Other specified health status Plan: Patient?says?he?has?been?trying?to?cut?down?but?has?had?difficulty?doing?so Agrees?to?a?referral?to?the?[facility]?which?is?made?today (3) Post-viral cough syndrome: Code(s): R05.8 - Other specified cough Plan: Mild?coarseness?of?breath?sounds?but?otherwise?clear Should?continue?to?resolve. If?not?resolved?by?6?weeks,?he?will?let?me?know,?would?start?with?a?chest?x-ray Orders: Orders Comprehensive [place]. Panel Fast Today Z00.00 - Encounter for general adult medical examination without abnormal findings Complete Blood Count Auto Diff Today Z00.00 - Encounter for general adult medical examination without abnormal findings Lipid Panel Today Z00.00 - Encounter for general adult medical examination without abnormal findings Microalbumin, Random (w Creat) Today I10 - Essential (primary) hypertension TSH reflex Free T4 Today Z00.00 - Encounter for general adult medical examination without abnormal findings UA and rflx microscopic Today Z00.00 - Encounter for general adult medical examination without abnormal findings Prostate Specific Antigen Scr Today Z12.5 - Encounter for screening for malignant neoplasm of prostate Referrals Addiction Medicine Referral F10.90 - Alcohol use, unspecified, uncomplicated Coding Level of Care Code Est Pt Level 3 (58034) Diagnoses Hyperlipidemia E78.5 Alcohol consumption of more than two drinks per day Z78.9 Post-viral cough syndrome R05.8
== END 2023-05-28 10:05 | disposition home or self-care (01) ==
PROVIDERS: PCP Family Medicine; Visit Provider Family Medicine
DX: E78.5 Hyperlipidemia, unspecified (principal); Z78.9 Other specified health status; R05.8 Other specified cough
CPT/HCPCS: 99213

== ENCOUNTER 2023-11-09 08:09 | Outpatient (REF) | payer MEDICARE, SELFPAY ==
[2023-11-09 11:20] LABS: MANUAL DIFF FLAG NO
[2023-11-09 11:27] LABS: Appearance Urine Clear; Color Urine Yellow; Glucose Urine UA Negative (Negative); Leukocyte Esterase Urine Negative (Negative); Nitrite Urine Negative (Negative); PH 7.5 (5.0-9.0); Specific Gravity - Urine 1.015 (1.005-1.025); Urine Blood Negative (Negative); Urine Ketones Negative (Negative); Urine Protein Negative (Neg-Trace)
[2023-11-09 11:28] LABS: Basophils Percent Auto 0.9 % (0-2); Eosinophils Absolute Auto 0.1 X10*3/uL (0.0-0.4); Eosinophils Percent Auto 3.1 % (0-4); Hemoglobin 13.6 g/dl (14.0-18.0); Imm Gran Abs Auto 0.02 X10*3/uL (0.00-0.03); Imm Gran Pct Auto 0.4 % (0.0-0.4); Lymphocytes Absolute Auto 1.4 X10*3/uL (1.2-4.9); Lymphocytes Percent Auto 30.9 % (20-40); Mean Corpuscular Hemoglobin 32.5 pg (27.0-33.0); Mean Corpuscular Volume 95.7 fL (80.0-98.0); Mean Platelet Volume 10.3 fL (9.4-12.4); Monocytes Absolute Auto 0.4 X10*3/uL (0.1-1.2); Monocytes Percent Auto 8.7 % (2-11); Neutrophils Absolute Auto 2.5 x10*3/uL (2.0-8.3); Platelet Count 210 X10*3/uL (160-400); Red Blood Count 4.18 X10*6/uL (4.60-5.80); Red Cell Distribution Width 12.1 % (11.0-16.0); White Blood Count 4.5 X10*3/uL (4.8-10.8)
[2023-11-09 12:01] LABS: Alanine Aminotransferase 20 U/L (0-40); Albumin Level 4.4 g/dL (3.5-5.0); Alkaline Phosphatase 63 U/L (39-117); Anion Gap 12 (12-20); Aspartate Amino Transferase 18 U/L (5-37); Bilirubin Total 0.6 mg/dL (0.0-1.0); Blood Urea Nitrogen 15 mg/dL (9-16); Calcium 9.5 mg/dL (8.4-10.2); Carbon Dioxide 30 mmol/L (22-29); Chloride 104 mmol/L (96-108); Cholesterol 186 mg/dL (<200); Estimated Glomerular Filt Rate > 60; Glucose Fasting 88 mg/dL (60-99); HDL Cholesterol 62 mg/dL (>40); LDL Cholesterol Calculated 107 mg/dL (<100); Potassium 4.3 mmol/L (3.3-5.1); Sodium 142 mmol/L (135-145); Total Protein 6.8 g/dL (6.5-8.0); Triglycerides 85 mg/dL (<150)
[2023-11-09 12:04] LABS: TSH reflex Free T4 2.29 uIU/mL (0.32-4.0)
[2023-11-09 12:07] LABS: Prostate Specific Antigen Scr < 0.10 ng/mL (<0.05-4.0)
[2023-11-09 12:15] LABS: Creatinine Urine 76.21 mg/dL; Microalbumin Urine < 5.0 mg/L
== END 2023-11-09 08:10 | disposition home or self-care (01) ==
LOC: HO.WFDLDS 08:09
PROVIDERS: Visit Provider Family Medicine
DX: Z00.00 Encounter for general adult medical examination without abnormal findings (principal); I10 Essential (primary) hypertension; Z12.5 Encounter for screening for malignant neoplasm of prostate
CPT/HCPCS: 36415; 80053; 80061; 81003; 82043; 82570; 84153; 84443; 85025

== ENCOUNTER 2023-11-27 11:48 | Outpatient (AMB) | payer MEDICARE, SELFPAY ==
--- NOTE | 2023-11-27 11:59 | A.OFFPC_ITS ---
Vital Signs 11/27/23 12:01 Height 5 ft 8 in Weight 187 lb 4 oz BMI 28.5 BP 124/68 Blood Pressure Location Lt brachial Position Sitting Respiration 14 Pulse 88 Pulse Source Pulse Oximeter Pulse Oximetry (%) 99 Oxygen Delivery Method Room Air Intake Visit Reasons: CPE with Labs Intake Note: annual physical Allergies No Known Allergies Allergy (Verified 11/27/23 12:01) Tobacco use date assessed: 05/28/23 Dental Screening Dental Screen Date: 05/28/23 PFSH Medical History Borderline hyperlipidemia Umbilical hernia Bloating Borderline diabetes Surgical History H/O colonoscopy Family History Father Angina pectoris Mother Asthma Social History Household Members: Family and None Housing: House Alcohol intake: current Alcohol intake frequency: 3 or more drinks per day Alcohol type: beer Patient Tobacco Use Status: Former Tobacco user Tobacco use type: Cigarette e-Cigarette/Vaping Use: Never Used Second Hand Smoke Exposure: No service: No Current occupational status: retired Current occupational exposures/hazards: No Cognitive needs: No Hearing needs: No Vision needs: No Questionnaire PHQ-9 Over the last 2 weeks, how often have you been bothered by any of the following problems? 1. Little interest or pleasure in doing things: not at all 2. Feeling down, depressed, or hopeless: not at all 3. Trouble falling or staying asleep, or sleeping too much: several days 4. Feeling tired or having little energy: several days 5. Poor appetite or overeating: not at all 6. Feeling bad about yourself - or that you are a failure or have let yourself or your family down: not at all 7. Trouble concentrating on things, such as reading the newspaper or watching television: not at all 8. Moving or speaking so slowly that other people could have noticed. Or the opposite - being so fidgety or restless that you have been moving around a lot more than usual: not at all 9. Thoughts that you would be better off or of hurting yourself in some way: not at all Total score: 2 Depression Screening Done: Yes 95144 - PHQ-9 Billing: Yes Source: Developed by Drs. Aman Barth, Neno Escalante and colleagues, with an educational rufus from [employer]. Thrive Questionnaire Date Thrive assessed: 11/27/23 I am a: Patient What is your living situation today?: I have a steady place to live Within the past 12 months, did the food you bought not last and you didn't have the money to get more?: Never true Within the past 12 months, did you worry whether your food would run out before you got money to buy more?: Sometimes True Do you have trouble paying for medicines?: No Do you have trouble getting transportation to medical appointments?: No Do you have trouble paying your heating and electricity bill?: No Do you have trouble taking care of your child, family member or friend?: No Do you have trouble with day-to-day activities such as bathing, preparing meals, shopping, managing finances, etc.?: No Are you currently unemployed and looking for a job?: No Are you interested in more education?: No THRIVE Score: 1 AUDIT C Alcohol Use Questionnaire (AUDIT-C) 1. How often do you have a drink containing alcohol?: 4 or more times a week 2. How many drinks containing alcohol do you have on a typical day when you are drinking?: 5 or 6 3. How often do you have six or more drinks on one occasion?: Weekly Total Score: 9 IAN-7 AMB Questionnaire IAN-7 Date IAN - 7 assessed: 11/27/23 Feeling nervous, anxious, or on edge: 0 = Not at all Not being able to stop or control worryin = Not at all Worrying too much about different things: 0 = Not at all Trouble relaxin = Not at all Being so restless that it is hard to sit still: 0 = Not at all Becoming easily annoyed or irritable: 1 = Several days Feeling afraid as if something awful might happen: 0 = Not at all Total IAN-7 score (0-4 normal; 5-9 mild; 10-14 moderate; 15-21 severe): 1 Source: Developed by Alisson Giordano Jesús, Neno Jasso and colleagues, with an educational rufus from [employer] IAN-7 Assessment Billing INA-7 Assessment Tool: IAN-7 Assessment 09000 Physical exam (Primary Care) Tobacco/Smoking Status: Tobacco use Status Tobacco use date assessed 05/28/23 05/28/23 09:32 Patient Tobacco Use Status Former Tobacco user 05/28/23 09:31 Tobacco use type Cigarette 05/28/23 09:31 e-Cigarette/Vaping Use Never Used 05/28/23 09:31 Thrive Assessment: Date of Thrive Assessment Date Thrive assessed 05/28/23 05/28/23 09:37 Coding Additional Codes IAN-7 Assessment Billing - IAN-7 Assessment Tool: IAN-7 Assessment 91017 ([id number])
[2023-11-27 12:01] VITALS: BP 124/68; PULSE 88; RESP 14; O2SAT 99; BMI 28.5
--- NOTE | 2023-11-27 12:25 | AM.OFFVISMDC ---
Intake Vital Signs 11/27/23 12:01 11/27/23 12:27 Height 5 ft 8 in Weight 187 lb 4 oz BMI 28.5 28.5 BP 124/68 Blood Pressure Location Lt brachial Position Sitting Respiration 14 Pulse 88 Pulse Source Pulse Oximeter Pulse Oximetry (%) 99 Oxygen Delivery Method Room Air Intake Visit Reasons: CPE with Labs Allergies No Known Allergies Allergy (Verified 11/27/23 12:01) Medication List - Last Reconciled 11/27/23 by RICHA Monroe No Known Home Meds HPI HPI Comments History of Present Illness Details Here today for AWV. The Medicare Annual Wellness Visit (AWV) is a yearly appointment with a health professional to identify health risks and help reduce them and to create or update a personalized prevention plan. During a Medicare AWV, health professionals should also review any current opioid prescriptions, detect any cognitive impairment, and establish or update medical and family history. 68-year-old male with ETOH dependence, former smoker, anemia, hyperlipidemia, prostate cancer status post prostatectomy, diverticulosis SurgHx: History?of?prostatectomy? FHx: see below SocHx: as noted in chart Health Maintenance: See scanned preventative medicine assessment with personalized health plan and screening schedule. Colon: History?of?colon?polyps?and?was?advised?to?follow-up?in?5?years?which?would?be?2025 Vaccines Tdap due, last time 2010 Admin today. Has never had PCV vaccines or Shingles AAA screen: never done, will order today EKG: LVH otherwise WNL [place] of Care: As noted in chart Visual Acuity:wears glasses, annual eye exams, next one 11/2023. Has cataracts. See below. Hearing Screening: WNL ACP: provided today, edu, encouraged to complete and return Dietary/Nutrition/Exercise Edu provided: Y During the course of the visit the patient was educated and counseled about appropriate screening and preventative services. Patient instructions were provided to the patient in written or electronic format. I have reviewed and verified the above information. Presents with new complaints today. Reports that he has had a cough for several weeks. The cough is dry. He feels winded very easily. Feels like he has a take deep breaths. Reports today that he was having chest pain and feels his heart pounding. This most often occurs when he was mowing his lawn which she describes as flattened small. He reports that he was having chest pain in the spring of 2023 while exercising at the gym. He stopped going to the gym up with the summer. He reports that his chest pain and shortness of breath has been worse over the last few weeks. She denies any syncope or collapse. He is not currently active with Cardiology. He continues to drink alcohol. He continues to be committed to reducing and becoming sober. He needs a new referral to addiction Medicine at [facility]. Labs 11/09/23 Low WBC, RBC, Hgb, Hct, TC 186, LDL 107, HDL 62, TG 85, PSA < 0.1, otherwise normal He started himself on iron supplement and started eating an iron rich diet after seeing his labs. He denies any overt signs or symptoms of bleeding. Plan: Get PCV and Shingles at pharm EKG done today. LVH otherwise normal. Check a stress test and refer to Cardiology. Emergency room education provided Refer to CCC at [facility] for ETOH abuse Repeat CBC today to include iron, ferritin and B12. Continue iron supplement at this time. Patient will be notified once the results are via the portal. [place] AAA screen hearing normal but requests audiogram, referred per request cont care w team He left before Tdap was given, return for nurse visit for this. Pt to be called to arrange. RTO 6-8 weeks to fu with PCP cough/chest pain - sooner PRN This note is constructed using voice recognition software. While every effort has been made to ensure accuracy in head waiter/waitress, still errors may have been included Sometimes, these errors may affect the content or meaning of the given sentence . An additional 40 was spent addressing the problem(s) noted at todays visit. This includes time spent before the visit reviewing the chart, time spent during the visit, and time spent after the visit on documentation PFSH Medical History Borderline hyperlipidemia Umbilical hernia Bloating Borderline diabetes Surgical History H/O colonoscopy Family History Father Angina pectoris Mother Asthma Social History (Reviewed 05/28/23 @ 09:32 by LEATHA Robison Household Members: Family and None Housing: House Alcohol intake: current Alcohol intake frequency: 3 or more drinks per day Alcohol type: beer Patient Tobacco Use Status: Former Tobacco user Tobacco use type: Cigarette e-Cigarette/Vaping Use: Never Used Second Hand Smoke Exposure: No service: No Current occupational status: retired Current occupational exposures/hazards: No Cognitive needs: No Hearing needs: No Vision needs: No Questionnaire Medicare Wellness Checkup What is your age?: 65-70 What gender do you identify with?: male During the past 4 weeks, how much have you been bothered by emotional problems such as feeling anxious, depressed, irritable, sad or downhearted, and blue?: not at all During the past 4 weeks, has your physical & emotional health limited your social activities with family, friends, neighbors, or groups?: not at all During the past 4 weeks, how much bodily pain have you generally had?: no pain During the past 4 weeks, was someone available to help you if you needed & wanted help?: yes, as much as I wanted During the past 4 weeks, what was the hardest physical activity you could do for at least 2 minutes?: moderate Can you get to places out of walking distance without help? (For eg., can you travel alone on buses, taxis or drive your car?): Yes Can you go shopping for groceries or clothes without someone's help?: Yes Can you prepare your own meals?: Yes Can you do your housework without help?: Yes Because of any health problems, do you need the help of another person with your personal care needs such as eating, bathing, dressing or getting around the house?: No Can you handle your own money without help?: Yes During the past 4 weeks, how would you rate your health in general?: good During the past 4 weeks how have things been going for you?: pretty well Are you having difficulties driving your car?: no Do you always fasten your seat belt when you are in a car?: yes, usually During past 4 weeks, have you been bothered by the following: never: Falling or dizzy when standing up, Sexual problems?, Trouble eating well?, Teeth or denture problems?, Problems using the telephone? and Tiredness or fatigue? Have you fallen 2 or more times in the past year?: No Are you afraid of falling?: No Are you a smoker?: no During the past 4 weeks, how many drinks of wine, beer, or other alcoholic beverages did you have?: 10 or more per week Do you exercise for about 20 minutes 3 or more times a week?: yes, some of the time Have you been given information to help with the following?: no: Hazards in your house that might hurt you? and no: Keeping track of your medications? How often do you have trouble taking medicines the way you have been told to take them?: I always take medicine as prescribed How confident are you that you can control & manage most of your health problems?: very confident What is your race?: White Activity of Daily Living Bathing - sponge bath, tub bath or shower: receives no assistance (gets in/out by self, if usual bathing means Dressing - getting clothes from closets & drawers, including inner/outer garments & fasteners.: gets clothes & gets completely dressed without help Toileting - going to the 'toilet room' for urine/bowel elimination & cleaning self/arranging clothes: goes to toilet room, cleans self, arranges clothes without help Transfer: moves in & out of bed and chair without help (may use support object) Continence: controls urination/bowel movements completely by self Feeding: feeds self without help Total Score: 0 Information obtained from: patient Using telephone: independent Traveling: independent Shopping: independent Preparing meals: independent Housework: independent Taking medicine: independent Managing money: independent PHQ-9 Over the last 2 weeks, how often have you been bothered by any of the following problems? 1. Little interest or pleasure in doing things: not at all 2. Feeling down, depressed, or hopeless: not at all 3. Trouble falling or staying asleep, or sleeping too much: not at all 4. Feeling tired or having little energy: not at all 5. Poor appetite or overeating: not at all 6. Feeling bad about yourself - or that you are a failure or have let yourself or your family down: not at all 7. Trouble concentrating on things, such as reading the newspaper or watching television: not at all 8. Moving or speaking so slowly that other people could have noticed. Or the opposite - being so fidgety or restless that you have been moving around a lot more than usual: not at all 9. Thoughts that you would be better off or of hurting yourself in some way: not at all Total score: 0 Depression Screening Interpretation: Negative Depression Screening Done: Yes 93376 - PHQ-9 Billing: Yes Source: Developed by Drs. Aman Barth, Alisson Espinosa, Neno Jasso and colleagues, with an educational rufus from [employer] Physical Exam Vital Signs: Last Vital Signs Pulse 88 11/27/23 12:01 Resp 14 11/27/23 12:01 BP 124/68 11/27/23 12:01 Pulse Ox 99 11/27/23 12:01 Oxygen Delivery Method Room Air 11/27/23 12:01 BMI result Body Mass Index 28.5 Const Other: awake alert NAD scleras nonicteric no carotid bruit bilat RRR LS CTAB No edema BLE Office Procedures EKG [id number], Complete Hearing Screen Left Overall Hearing Screening Results: Pass 44898 - Screening Test, pure tone, air only Vision Screening Right Eye: 20/40 Left Eye: 20/40 Bilateral: 20/30 Color: Pass Corrected: Fail 13262 - Vision Screening Results AMB Hemoglobin A1c AMB Hemoglobin A1c 4.8 % Last Edit by Guilherme Clement MA on 11/27/23 12:59 Results Reviewed Results Reviewed: Laboratory Last Values Hgb A1c (Clinic) 4.8 % (4.0-6.0) 11/27/23 12:45 Assessment & Plan Assessment & Plan (1) Encounter for subsequent annual wellness visit (AWV) in Medicare patient: Code(s): Z00.00 - Encounter for general adult medical examination without abnormal findings Plan: . (2) Alcohol use disorder: Code(s): F10.90 - Alcohol use, unspecified, uncomplicated Plan: . (3) Anemia: Code(s): D64.9 - Anemia, unspecified Qualifiers: Anemia type: unspecified type Qualified Code(s): D64.9 - Anemia, unspecified Plan: . (4) Hearing conservation and treatment exam: Code(s): Z01.12 - Encounter for hearing conservation and treatment Plan: . (5) Chest pain: Code(s): R07.9 - Chest pain, unspecified Qualifiers: Chest pain type: chest pain on breathing Qualified Code(s): R07.1 - Chest pain on breathing Plan: . (6) Screening for AAA (abdominal aortic aneurysm): Comment: hx of 3 pack per day, > 100 cigs in a lifetime Code(s): Z13.6 - Encounter for screening for cardiovascular disorders Plan: . (7) Former smoker: Code(s): Z87.891 - Personal history of nicotine dependence Plan: . (8) ACP (advance care planning): Code(s): Z71.89 - Other specified counseling Plan: . (9) Screening for diabetes mellitus: Code(s): Z13.1 - Encounter for screening for diabetes mellitus Plan: . (10) History of prostatectomy: Code(s): Z90.79 - Acquired absence of other genital organ(s) Plan: . (11) Prostate cancer: Code(s): C61 - Malignant neoplasm of prostate Plan: . Orders: Orders Complete Blood Count no Diff Today D64.9 - Anemia, unspecified IRON PROFILE Today D64.9 - Anemia, unspecified Vitamin B12 and Folate Today D64.9 - Anemia, unspecified Ferritin Today D64.9 - Anemia, unspecified AMB Hemoglobin A1c Today Z13.1 - Encounter for screening for diabetes mellitus, Z13.9 - Encounter for screening, unspecified CA stress test Today R07.9 - Chest pain, unspecified AMB EKG-In Office Today R07.9 - Chest pain, unspecified, Z13.6 - Encounter for screening for cardiovascular disorders US abdominal aortic aneurysm Today Z13.6 - Encounter for screening for cardiovascular disorders, Z87.891 - Personal history of nicotine dependence Referrals Addiction Medicine Referral F10.90 - Alcohol use, unspecified, uncomplicated Audiology Referral Z01.12 - Encounter for hearing conservation and treatment Cardiology Referral R07.9 - Chest pain, unspecified Medications: New multivitamin 1 tab PO DAILY 30 tabs 0RF ferrous sulfate 325 mg PO DAILY 30 tabs 0RF Patient Instructions: Health screenings for men ages 40 to 64 You should visit your health care provider regularly, even if you feel healthy. The purpose of these visits is to: Screen for medical issues Assess your risk for future medical problems Encourage a healthy lifestyle Update vaccinations and other preventive care services Help you get to know your provider in case of an illness Information Even if you feel fine, you should still see your provider for regular checkups. These visits can help you avoid problems in the future. For example, the only way to find out if you have high blood pressure is to have it checked regularly. High blood sugar and high cholesterol level also may not have any symptoms in the early stages. Simple blood tests can check for these conditions. There are specific times when you should see your provider or receive specific health screenings. The [place] Preventive Services Task Force publishes a list of recommended screenings. Below are screening guidelines for men ages 40 to 64. BLOOD PRESSURE SCREENING Have your blood pressure checked at least once every year. Watch for blood pressure screenings in your area. Ask your provider if you can stop in to have your blood pressure checked. Ask your provider if you need your blood pressure checked more often if: You have diabetes, heart disease, kidney problems, or are overweight or have certain other health conditions You have a first-degree relative with high blood pressure You are Black Your blood pressure top number is from 120 to 129 mm Hg, or the bottom number is from 70 to 79 mm Hg If the top number is 130 mm Hg or greater or the bottom number is 80 mm Hg or greater, this is considered stage 1 hypertension. Schedule an appointment with your provider to learn how you can lower your blood pressure. Effects of age on blood pressure CHOLESTEROL SCREENING Cholesterol screening should begin at age 35 for men with no known risk factors for coronary heart disease. Repeat cholesterol screening should take place: Every 5 years for men with normal cholesterol levels More often if changes occur in lifestyle (including weight gain and diet) More often if you have diabetes, heart disease, kidney problems, or certain other conditions COLORECTAL CANCER SCREENING If you are under age 45, talk to your provider about getting screened. You may need to be screened if you have a strong family history of colon cancer or polyps. Screening may also be considered if you have risk factors such as a history of inflammatory bowel disease or polyps. If you are age 45 to 75, you should be screened for colorectal cancer. There are several screening tests available: A stool-based fecal occult blood (gFOBT) or fecal immunochemical test (FIT) every year A stool sDNA test every 1 to 3 years Flexible sigmoidoscopy every 5 years or every 10 years with stool testing FIT done every year CT colonography (virtual colonoscopy) every 5 years Colonoscopy every 10 years You may need a colonoscopy more often if you have risk factors for colorectal cancer, such as: Ulcerative colitis A personal or family history of colorectal cancer A history of growths in your colon called adenomatous polyps DENTAL EXAM Go to the dentist once or twice every year for an exam and cleaning. Your dentist will evaluate if you have a need for more frequent visits. DIABETES SCREENING All adults who do not have risk factors for diabetes should be screened starting at age 35 and repeated every 3 years. If you have other risk factors for diabetes, such as a first degree relative with diabetes, overweight or obesity, high blood pressure, prediabetes, or a history of heart disease, you may be tested more often. If you are overweight and have other risk factors, such as high blood pressure and are planning to become , screening is recommended. EYE EXAM Have an eye exam every 2 to 4 years ages 40 to 54 and every 1 to 3 years ages 55 to 64. Your provider may recommend more frequent eye exams if you have vision problems or glaucoma risk. Have an eye exam that includes an examination of your retina (back of your eye) at least every year if you have diabetes. IMMUNIZATIONS Commonly needed vaccines include: Flu shot: get one every year COVID-19 vaccine: ask your provider what is best for you Tetanus-diphtheria and acellular pertussis (Tdap) vaccine: have as one of your tetanus-diphtheria vaccines if you did not receive it as an adolescent Tetanus-diphtheria: have a booster (or Tdap) every 10 years Varicella vaccine: receive 2 doses if you never had chickenpox or the varicella vaccine and were born in 1979 or after Hepatitis B vaccine: receive 2, 3, or 4 doses, depending on your exact circumstances, if you did not receive these as a child or adolescent, until age 59 Shingles (herpes zoster) vaccine: at or after age 50 Ask your provider if you should receive other immunizations, especially if you have certain medical conditions, such as diabetes or are at increased risk for some diseases such as pneumonia. INFECTIOUS DISEASE SCREENING Screening for hepatitis C: all adults ages 18 to 79 should get a one-time test for hepatitis C. Screening for human immunodeficiency virus (HIV): all people ages 15 to 65 should get a one-time test for HIV. Depending on your lifestyle and medical history, you may need to be screened for infections such as syphilis, chlamydia, and other infections. LUNG CANCER SCREENING You should have an annual screening for lung cancer with low-dose computed tomography (LDCT) if: You are age 50 to 80 years AND You have a 20 pack-year smoking history AND You currently smoke or have quit within the past 15 years OSTEOPOROSIS SCREENING If you are age 50 to 64 and have risk factors for osteoporosis, you should discuss screening with your provider. Risk factors can include long-term steroid use, low body weight, smoking, heavy alcohol use, having a fracture after age 50, or a family history of hip fracture or osteoporosis. Osteoporosis PHYSICAL EXAM All adults should visit their provider from time to time, even if they are healthy. The purpose of these visits is to: Screen for diseases Assess risk of future medical problems Encourage a healthy lifestyle Update vaccinations and other preventive care services Maintain a relationship with a provider in case of an illness Your height, weight, and body mass index (BMI) should be checked at every exam. During your exam, your provider may ask you about: Depression and anxiety Diet and exercise Alcohol and tobacco use Safety, such as use of seat belts and smoke detectors Your medicines and risk for interactions PROSTATE CANCER SCREENING If you're 55 through 69 years old, before having the test, talk to your provider about the pros and cons of having a PSA test. Ask about: Whether screening decreases your chance of dying from prostate cancer. Whether there is any harm from prostate cancer screening, such as side effects from testing or overtreatment of cancer when discovered. Whether you have a higher risk of prostate cancer than others. If you are age 55 or younger, screening is not generally recommended. You should talk with your provider about if you have a higher risk for prostate cancer. Risk factors include: Having a family history of prostate cancer (especially a brother or father) Being If you choose to be tested, the PSA blood test is repeated over time (yearly or less often), though the best frequency is not known. Prostate examinations are no longer routinely done on men with no symptoms. Prostate cancer SKIN EXAM Your provider may check your skin for signs of skin cancer, especially if you're at high risk. People at high risk include those who have had skin cancer before, have close relatives with skin cancer, or have a weakened immune system. TESTICULAR EXAM The [place] Preventive Services Task Force (USPSTF) now recommends against performing testicular self-exams. Doing testicular self-exams has been shown to have little to no benefit. Quality Reporting (2019) Adult ([facility] 138/04/09/68) Smoking risk assessment performed?: Yes Patient Tobacco Use Status: Former Tobacco user Depression screening performed: Yes Screen Results: Yes Negative screen Recommended changes: alcohol moderation Systolic BP not done?: Yes Diastolic BP not done?: Yes BMI screening not done: Yes BMI High - Follow Up: Yes High-plan Sexual Activity Screening ([facility] 153) Sexually active?: Yes Immunizations ([facility] 147, 117) Annual Influenza Vaccine: No Flu Vaccine not done: patient reason Measles Antibody Test: No Mumps Antibody Test: No Rubella Antibody Test: No Varicella Antibody Test: No Anti Hepatitis A IgG Antigen test: No Anti Hepatitis B Virus Surface Ab test: No Fall Risk Screening ([facility] 139) Last assessed Fall Risk: 11/27/23 Fall risk assessment: No Falls in past year Dementia Assessment ([facility] 149) Cognitive assessment recorded: Yes (6 cit wnl) Assessment of cognition with standardized tool: Yes Depression/Bipolar (159/160/161/177) PHQ-9: Total score: 0 Suicide risk assessment performed: Yes Psychotherapy: Yes Ophthalmol:Cataracts Visual Acuity (133) Visual acuity exam performed: Yes (see below ) Coding Level of Care Code Medicare Subsequent (G0439) Est Pt Level 5 (62849) Diagnoses Encounter for subsequent annual wellness visit (AWV) in Medicare patient Z00.00 Alcohol use disorder F10.90 Anemia, unspecified type D64.9 Anemia type: unspecified type Hearing conservation and treatment exam Z01.12 Chest pain on breathing R07.1 Chest pain type: chest pain on breathing Screening for AAA (abdominal aortic aneurysm) Z13.6 Former smoker Z87.891 ACP (advance care planning) Z71.89 Screening for diabetes mellitus Z13.1 History of prostatectomy Z90.79 Prostate cancer C61 CPT Codes Advance Care Planning - Time spent: 1-15 minutes, not on file ([id number]) EKG - CPT: 84216-[id number], Complete ([id number]) Coding - Hearing Test Screenin - Screening Test, pure tone, air only ([id number]) Vision Screening - Vision Screenin - Vision Screening ([id number]) Advance Care Planning Advance Care Planning discussion: Exists, not on file Date of discussion: 11/27/23 Who was present: self Forms completed: Health Care Proxy and MOLST Time spent: 1-15 minutes, not on file Actual minutes spent: 10 Did not discuss due to Cultural/Spiritual beliefs: Yes
[2023-11-27 12:27] VITALS: BMI 28.5
== END 2023-11-27 13:30 | disposition home or self-care (01) ==
PROVIDERS: PCP Family Medicine; Visit Provider Nurse Practitioner Family
DX: Z00.00 Encounter for general adult medical examination without abnormal findings (principal); R07.1 Chest pain on breathing; C61 Malignant neoplasm of prostate; D64.9 Anemia, unspecified; F10.90 Alcohol use, unspecified, uncomplicated; Z01.12 Encounter for hearing conservation and treatment; Z87.891 Personal history of nicotine dependence; Z13.6 Encounter for screening for cardiovascular disorders; Z13.1 Encounter for screening for diabetes mellitus; Z90.79 Acquired absence of other genital organ(s)

== ENCOUNTER → 2023-11-27 11:48 | Outpatient (BNVA) | payer MEDICARE, SELFPAY | PROVIDERS: PCP Family Medicine; Visit Provider Nurse Practitioner Family | DX: Z00.00 Encounter for general adult medical examination without abnormal findings (principal); F10.90 Alcohol use, unspecified, uncomplicated; D64.9 Anemia, unspecified; R07.1 Chest pain on breathing; C61 Malignant neoplasm of prostate; Z90.79 Acquired absence of other genital organ(s); Z71.89 Other specified counseling; Z87.891 Personal history of nicotine dependence; R73.03 Prediabetes | CPT/HCPCS: 83036; 93005; 96127; 99212 ==

== ENCOUNTER 2023-11-27 14:09 | Outpatient (REF) | payer MEDICARE, SELFPAY ==
[2023-11-27 17:38] LABS: Hematocrit 41.9 % (42.0-52.0); Hemoglobin 14.3 g/dl (14.0-18.0); Mean Corpuscular HGB Conc 34.1 g/dl (31.0-36.0); Mean Corpuscular Hemoglobin 32.6 pg (27.0-33.0); Mean Corpuscular Volume 95.4 fL (80.0-98.0); Mean Platelet Volume 10.3 fL (9.4-12.4); Platelet Count 226 X10*3/uL (160-400); Red Blood Count 4.39 X10*6/uL (4.60-5.80); Red Cell Distribution Width 11.9 % (11.0-16.0); White Blood Count 6.2 X10*3/uL (4.8-10.8)
[2023-11-27 17:50] LABS: Iron 111 mcg/dL (45-160); Percent Iron Saturation 35 % (15-50); Total Iron Binding Capacity 318 mcg/dL (228-428); Unsaturated Iron Binding 207 ug/dL
[2023-11-27 18:06] LABS: Ferritin 356 ng/mL (20-250)
[2023-11-27 18:20] LABS: Folate 16.1 ng/mL (> or = 4.0); Vitamin B12 409 pg/mL (200-900)
== END 2023-11-27 14:10 | disposition home or self-care (01) ==
LOC: HO.WFDLDS 14:09
PROVIDERS: Visit Provider Nurse Practitioner Family
DX: D64.9 Anemia, unspecified (principal); Z13.1 Encounter for screening for diabetes mellitus; Z13.9 Encounter for screening, unspecified
CPT/HCPCS: 36415; 82607; 82728; 82746; 83540; 85027

== ENCOUNTER 2023-12-04 09:00 | Outpatient (AMB) | payer MEDICARE, SELFPAY ==
--- NOTE | 2023-12-04 09:26 | A.OFFVISCC_ITS ---
Vital Signs 12/04/23 09:37 BP 120/60 Blood Pressure Location Lt brachial Position Sitting Respiration 19 Pulse 75 Pulse Source Pulse Oximeter Pulse Oximetry (%) 96 Intake Visit Reasons: Intake Allergies No Known Allergies Allergy (Verified 11/27/23 12:01) HPI HPI Intake: Details: Patient presents for intake and evaluation of alcohol use He was referred by his PCP following lab work and concern that increase in alcohol is impacting his health He reports drinking a 6 pack of beer every day over 4-6 hours Intake has increased since he retired he reports that his drinking has had no impact on his relationships, denies any anxiety or withdrawal sx prior to drinking he is aware that alcohol is impacting his health and is counterproductive to his own goals (staying healthy/fit, riding his motorcycle) Denies any history of withdrawal sx Denies every attempting to cut down labs and notes reviewed FORMERLY [facility], [facility] Medical History Borderline hyperlipidemia Umbilical hernia Bloating Borderline diabetes Surgical History H/O colonoscopy Family History Father Angina pectoris Mother Asthma Social History Household Members: Family and None Housing: House Alcohol intake: current Alcohol intake frequency: 3 or more drinks per day Alcohol type: beer Patient Tobacco Use Status: Former Tobacco user Tobacco use type: Cigarette e-Cigarette/Vaping Use: Never Used Second Hand Smoke Exposure: No service: No Current occupational status: retired Current occupational exposures/hazards: No Cognitive needs: No Hearing needs: No Vision needs: No Review of Systems Const Reports as per HPI and Reports no additional complaints Physical Exam Vital Signs: Last Vital Signs Pulse 75 12/04/23 09:37 Resp 19 12/04/23 09:37 BP 120/60 12/04/23 09:37 Pulse Ox 96 12/04/23 09:37 Const General: cooperative, healthy appearing and well groomed Nutritional Appearance: average body habitus Orientation/consciousness: patient oriented x3 Limitations: no limitations Neuro General: patient oriented x3 Quality Reporting (2019) Adult ([facility] 138/2//69) Smoking risk assessment performed?: Yes Patient Tobacco Use Status: Former Tobacco user Assessment & Plan Assessment & Plan (1) Alcohol consumption of more than two drinks per day: Code(s): Z78.9 - Other specified health status Category: Social Hx Plan: * discussed risk of developing use disorder and negative implications associated with that * discussed safer drinking strategies and provided with written resources * discussed naltrexone as an option to decrease intake * patient would like to trial safer drinking strategies and attempt to decrease intake on his own * open to following up in 6 weeks MAT Intake Nursing Intake Reason for visit: AUD Are you currently using?: Yes What are you taking?: Drinking a 6 pack of beer daily When was your last use?: yesterday How much?: 6 pack of beer daily 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 What is your current relationship status?: single Current PCP: Dr Song and Amisha Hardy Date of last visit: this past month Referral Source: PCP Social History Domestic Violence concerns: No Children: 2 daughters Do you have a support system?: Yes family and ex Current mode of transportation?: Drives Where are you currently residing?: [place] IV Drug Use Have you ever shared needles?: No Have you ever belonged to a needle exchange program?: No Do you buy needles at a pharmacy?: No Have you ever overdosed?: No Have you ever been hospitalized for an overdose?: No Was Naloxone administered?: No Recovery History Have you had any periods of recovery?: No Have you ever had inpatient treatment for your substance abuse disorder?: No Have you been in an inpatient detoxification program?: No Have you been in an inpatient Rehab/[place] [facility]?: No Have you been in an outpatient Methadone Maintenance program?: No Have you been in an outpatient Suboxone Maintenance program?: No Have you been in an AA/NA support program?: No Have you had a Recovery Support Carpenters Helper?: No Have you had Peer Support?: No Behavioral Health History Do you have a current provider? If so, who?: No History of self harming thoughts?: No History of homicidal or suicidal intentions?: No Medical Conditions Endocarditis?: No Skin Infection: No Seizure related to withdrawal or overdose: No Head or brain injury: No Hepatitis A (if yes, have you been treated?): No Hepatitis B (if yes, have you been treated?): No Hepatitis C (if yes, have you been treated?): No HIV (if yes, have you been treated?): No TB (if yes, have you been treated?): No Legal History History of incarceration: No Currently on parole or probation: No Court mandated programs: No Pending court cases: No DCF involvement: No
[2023-12-04 09:37] VITALS: BP 120/60; PULSE 75; RESP 19; O2SAT 96
== END 2023-12-04 14:30 | disposition home or self-care (01) ==
PROVIDERS: PCP Family Medicine; Visit Provider Nurse Practitioner Psychiatric/Mental Health
DX: F10.90 Alcohol use, unspecified, uncomplicated (principal)
CPT/HCPCS: 99204

== ENCOUNTER 2023-12-04 10:21 | Outpatient (REF) | payer MEDICARE, SELFPAY ==
--- NOTE | ~2023-12-04 | US_ITS ---
EXAMINATION: US RETROPERITONEAL LIMITED (AORTA) CLINICAL INFORMATION: Abdominal aortic aneurysm screening. COMPARISON: None available. TECHNIQUE: Mckeon-scale, color Doppler and spectral Doppler evaluation of the abdominal aorta. FINDINGS: Aorta is normal in caliber. Scattered atherosclerotic plaque The measurements of the aorta in maximum AP and transverse dimensions respectively are as follows: Proximal: 2.8 x 2.9 cm. Mid: 1.9 x 1.6 cm. Distal: 1.7 x 1.7 cm. PSV: 85.2 cm/s. The measurements of the common iliac arteries in maximum AP and TRV dimensions are as follows: Right Common Iliac Artery: 1.0 x 1.1 cm. Left Common Iliac Artery: 0.9 x 0.8 cm. US/US abdominal aortic aneurysm IMPRESSION: No evidence of abdominal aortic aneurysm. Electronically signed by: Carl Gibbs MD 12/15/2023 08:39 AM EDT
== END 2023-12-04 10:22 | disposition home or self-care (01) ==
LOC: HO.US 10:21
PROVIDERS: PCP Family Medicine; Visit Provider Nurse Practitioner Family
DX: Z13.6 Encounter for screening for cardiovascular disorders (principal); Z87.891 Personal history of nicotine dependence
CPT/HCPCS: 76706; 99202

== ENCOUNTER 2023-12-17 10:18 | Outpatient (REF) | payer MEDICARE, SELFPAY | END 2023-12-17 10:19 | disposition home or self-care (01) | LOC: HO.SH 10:18 | PROVIDERS: Visit Provider Nurse Practitioner Family | DX: Z01.118 Encounter for examination of ears and hearing with other abnormal findings (principal); H90.3 Sensorineural hearing loss, bilateral | CPT/HCPCS: 92557 ==

== ENCOUNTER → 2023-12-22 10:18 | Outpatient (REF) | payer MEDICARE, SELFPAY ==
--- NOTE | 2023-12-22 10:21 | CA_ITS ---
Acquisition Time: 2023-12-22 10:35:25 Total Exercise Time: 00:04:42 Test Indications: Palpitations CP Medications: NONE Protocol: SAUD Max HR: 148 BPM 96% of Pred: 153 BPM Max BP: 134/086 mmHG Max Work Load: 6.6 METS Exercise Stress Test with exercise of 4 mins 42 secs of Saud Protocol, achieving 96%, with isloated PACs, Isolated PVCs, ventricular bigeminy longest 3 beats, with moderate SOB and left sided chest pressure 0.5/10, with blunted BP response to exercise. EKG changes meeting criteria for ischemia: showing upto 3mm horizontal ST depression in inferior, anterior, and lateral leads with slow return to baseline during recovery. Breathing and chest pressure resolved. Test reviewed with Dr. Lynn. Ross score Neg 18.25. Pt informed of abnormal test results - typical for ischemia. Will start on aspirin 81mg and Metoprolol xl 25mg daily. Discussed cardiac catheterization with him. Will get preprocedure labs including: CBC, PT/INR, BMP today. Will notify PCP of need for cardiology consult. Will arrange for echocardiogram and pt to see Dr Lynn this week in office. Instructed on very light physical activity and emergency care for symtoms that occur at rest or are not relieved with rest. Referred By: Nery Person Overread By: MELANI HOLGUIN
[2023-12-22 12:25] LABS: Basophils Percent Auto 0.6 % (0-2); Eosinophils Absolute Auto 0.1 X10*3/uL (0.0-0.4); Eosinophils Percent Auto 2.4 % (0-4); Hematocrit 40.1 % (42.0-52.0); Hemoglobin 13.8 g/dl (14.0-18.0); Imm Gran Abs Auto 0.01 X10*3/uL (0.00-0.03); Imm Gran Pct Auto 0.2 % (0.0-0.4); Lymphocytes Absolute Auto 1.2 X10*3/uL (1.2-4.9); Lymphocytes Percent Auto 24.8 % (20-40); MANUAL DIFF FLAG NO; Mean Corpuscular HGB Conc 34.4 g/dl (31.0-36.0); Mean Corpuscular Hemoglobin 32.7 pg (27.0-33.0); Monocytes Absolute Auto 0.4 X10*3/uL (0.1-1.2); Monocytes Percent Auto 8.3 % (2-11); Neutrophils Absolute Auto 3.2 x10*3/uL (2.0-8.3); Neutrophils Percent Auto 63.7 % (45-73); Platelet Count 184 X10*3/uL (160-400); Red Blood Count 4.22 X10*6/uL (4.60-5.80); Red Cell Distribution Width 11.9 % (11.0-16.0)
[2023-12-22 12:36] LABS: Prothrombin Time 11.8 SEC (10.9-12.4)
[2023-12-22 13:11] LABS: Anion Gap 14 (12-20); Blood Urea Nitrogen 14 mg/dL (9-16); Calcium 9.7 mg/dL (8.4-10.2); Carbon Dioxide 27 mmol/L (22-29); Chloride 103 mmol/L (96-108); Estimated Glomerular Filt Rate > 60; Glucose Random 96 mg/dL (60-115); Potassium 4.1 mmol/L (3.3-5.1); Sodium 140 mmol/L (135-145)
== END ==
LOC: HO.CARD 10:18
PROVIDERS: Nurse Practitioner Family; PCP Family Medicine; Visit Provider Nurse Practitioner Family
DX: R07.9 Chest pain, unspecified (principal); R94.39 Abnormal result of other cardiovascular function study; I20.89 Other forms of angina pectoris
CPT/HCPCS: 36415; 80048; 85025; 85610; 93017

== ENCOUNTER → 2023-12-22 10:21 | Outpatient (BNV) | payer MEDICARE, SELFPAY | PROVIDERS: PCP Family Medicine; Visit Provider Nurse Practitioner Family | DX: I49.3 Ventricular premature depolarization (principal); I49.1 Atrial premature depolarization | CPT/HCPCS: 93016; 93018 ==

== ENCOUNTER → 2023-12-23 14:48 | Outpatient (REF) | payer MEDICARE, SELFPAY ==
--- NOTE | 2023-12-23 14:52 | CA_ITS ---
Transthoracic Echocardiogram Patient (Last, First, Middle): Emiliano Hermosillo, Gender: Male Date of : 1955 Age: 68 Procedure Date: 12/23/2023 Procedure Type: Transthoracic Echocardiogram Location: OP Height: 172.72 cm Weight: 84.82 kg BSA: 1.99 m2 Heart Rate: bpm BP: 130 / 82 mmHg Gas Station Operator: EVGENY Referring MD: Prema Cevallos HAIRSPRING ADJUSTER-C Shipping Lead Person: Richar Lynn MD Symptoms: I20.89 - Other forms of angina pectoris Study Quality: Fair ECG Rhythm: Sinus Conclusions: - 1. Mildly reduced LV ejection fraction 45-50% with underlying regional wall motion abnormality consistent with coronary artery disease with impaired relaxation filling pattern 2. Normal cardiac valvular Dopplers next 3. Upper limits of normal ascending aortic size 4. Normal RV systolic pressure 5. No gross pericardial effusion Findings Left Ventricle Normal left ventricular cavity size. There is normal left ventricular wall thickness. The left ventricular systolic function is mildly decreased. The visually estimated ejection fraction is between 45-50%. Spectral Doppler is indicative of an impaired relaxation filling pattern. E/E prime ratio is between 8 and 15 consistent with indeterminate filling pressures. Peak GLS is -14.2%, moderately reduced. Wall Motion Rest Echo Findings The inferoseptal wall, inferolateral wall, the basal inferior, and mid inferior segments are hypokinetic. All other scored wall segments showed normal motion. Right Ventricle Normal right ventricular cavity size and systolic function. Atria The left atrium is likely dilated. The right atrium is normal in size. Aortic Valve The aortic valve structure and function is likely normal. There is no aortic valve stenosis. There is no aortic valve regurgitation. Mitral Valve Likely normal mitral valve structure and function. There is trace mitral valve regurgitation. There is no mitral valve stenosis. Pulmonic Valve The pulmonic valve was not well visualized. Tricuspid Valve Likely normal tricuspid valve structure and function. There is trace tricuspid valve regurgitation. The right ventricular systolic pressure is normal. The right ventricular systolic pressure is 24 mmHg. Normal right atrial pressure. There is no evidence of pulmonary hypertension. Great Vessels The pulmonary artery was not well visualized. There is no dilatation of the ascending aorta measuring 3.60 cm. Venous The inferior vena cava is normal in size and collapses greater than 50% with inspiration. Pericardium/Pleural There is no evidence of pericardial effusion. Prior Study Comparison No prior study available for comparison. Measurements 2D Linear Measurements IVSd: 0.98 0.6-0.9/0.6-1.0 cm LVIDd: 5.16 3.9-5.3/4.2-5.9 cm LVIDd Index: 2.59 2.4-3.2/2.2-3.1 cm/m2 LVIDs: 3.98 2.0-3.6 cm LVPWd: 1.00 0.7-1.1 cm LA Diam: 4.00 2.7-3.8/3.0-4.0 cm LAIDs Index: 2.01 1.5-2.3 cm/m2 LV Mass: 235.67 67-162/88-224 g LV Mass Index: 118.43 43-95/49-115 g/m2 LVOT Diam: 2.10 3.0+(-)1.3 cm 2D Systolic Function EF 4C: 52.80 >55% EF 2C: 49.30 >55% EF BiP: 48.60 >55% Mitral Valve MV Pk E: 0.75 MV PK A: 1.05 MV Decel Time: 187.00 E/A: 0.70 E'Lateral: 11.50 E'Medial: 5.11 E/E' Med: 14.80 E/E' Lat: 6.60 PHT: 55.00 MVA PHT: 4.00 Decel Hettinger: 4.02 Aortic Valve AoV Pk Maverick: 1.32 AoV Mn Maverick: 0.88 AoV VTI: 0.28 AoV Pk Grad: 7.00 Aov Mn Grad: 4.00 JENNIFER Cont.VTI: 2.41 LVOT LVOT Pk Maverick: 0.89 LVOT Mn Maverick: 0.66 LVOT VTI: 0.19 LVOT Pk Grad: 3.00 LVOT Mn Grad: 2.00 LVOT Diam: 2.10 LVOT Area: 3.46 Diastolic Function MV Pk E: 0.75 MV Pk A: 1.05 E/A: 0.70 E'Medial: 5.11 E/E' Med: 14.80 E' Laterial: 11.50 E/E' Lat: 6.60 Right Ventricle TAPSE (mm): 22.60 TVS' Maverick: 11.30 Tricuspid Valve TR Pk Maverick: 2.29 TR Pk Grad: 21.00 RA Press: 3.00 RVSP: 24.00 Great Vessels Aorta Sinus of Valsalva: 2.95 2.0-3.[address] Ridge: 2.19 1.7-3.4 cm Ao Asc: 3.60 2.1-3.4 cm Updated in Other Vendor System with Status of Final Richar Lynn MD electronically signed on 12/24/2023 12:28:39 PM with status of Final
== END ==
LOC: HO.CARD 14:48
PROVIDERS: PCP Family Medicine; Visit Provider Nurse Practitioner Family
DX: I20.89 Other forms of angina pectoris (principal); R94.39 Abnormal result of other cardiovascular function study
CPT/HCPCS: 93306; 93356

== ENCOUNTER → 2023-12-23 14:52 | Outpatient (BNV) | payer MEDICARE, SELFPAY | PROVIDERS: PCP Family Medicine; Visit Provider Internal Medicine Cardiovascular Disease | DX: I25.118 Atherosclerotic heart disease of native coronary artery with other forms of angina pectoris (principal); R93.1 Abnormal findings on diagnostic imaging of heart and coronary circulation | CPT/HCPCS: 93306; 93356 ==

== ENCOUNTER 2023-12-25 07:51 | Outpatient (AMB) | payer MEDICARE, SELFPAY ==
[2023-12-25 08:05] VITALS: BP 120/62; PULSE 63; BMI 28.1
--- NOTE | 2023-12-25 08:05 | MHC.OFFVIS ---
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 He is a pleasant 68-year-old male, former smoker, borderline diabetes, hyperlipidemia who since last year because of high cholesterol decided that he wanted to make lifestyle modification. He then joined a gym and while walking on the treadmill and reaching heart rate about 130 over sought noticing discomfort in his chest along with shortness of breath. This alerted him although he continued to remain active. Came around summer he started noticing these symptoms with his usual day-to-day activity like mowing the lawn. Symptoms then progressively progressed. He was then referred for a stress test which was abnormal with marked ST depression about 3 mm with exercise with high Ross treadmill risk score. Patient subsequently had echocardiogram which showed preserved EF but did show wall motion abnormality in the inferior inferolateral wall consistent with underlying coronary artery disease and hibernating myocardium. Patient since then was started on aspirin and metoprolol and has started taking atorvastatin. He has not been exercising since then. He has not recurrent symptoms. No symptoms at rest. [facility] Medical History Borderline hyperlipidemia Umbilical hernia Bloating Borderline diabetes Surgical History H/O colonoscopy Family History Father Angina pectoris Mother Asthma Social History Household Members: Family and None Housing: House Alcohol intake: current Alcohol intake frequency: 3 or more drinks per day Alcohol type: beer Patient Tobacco Use Status: Former Tobacco user Tobacco use type: Cigarette e-Cigarette/Vaping Use: Never Used Second Hand Smoke Exposure: No service: No Current occupational status: retired Current occupational exposures/hazards: No Cognitive needs: No Hearing needs: No Vision needs: No Review of Systems ENT Reports dizziness Card Denies chest pain, Denies chest pain at rest, Denies chest pain with activity, Denies rapid heart rate, Denies pedal edema, Denies edema, Denies leg edema, Denies lightheadedness, Denies palpitations, Denies dyspnea, Denies dyspnea on exertion and Denies orthopnea Resp Denies cough, Denies dyspnea and Denies dyspnea on exertion GI Denies hematochezia and Denies change in stool character Musc Denies abnormal gait, Reports limited range of motion, Reports muscle cramps, Denies muscle weakness, Denies numbness, Denies radiating pain into limb, Denies stiffness and Denies tingling Neuro Denies abnormal gait, Reports dizziness, Denies numbness and Denies tingling Endo Denies palpitations Physical Exam Vital Signs: Last Vital Signs Pulse 63 12/25/23 08:05 BP 120/62 12/25/23 08:05 BMI result Body Mass Index 28.1 Const General: cooperative, comfortable, no acute distress, well developed, alert, awake and Physically active Nutritional Appearance: average body habitus and well nourished Orientation/consciousness: patient oriented x3 Limitations: no limitations HEENT Head: Yes normocephalic and Yes atraumatic Neck Neck: Yes trachea midline, Yes supple and Yes no JVD Resp Effort & Inspection: normal respiratory effort Auscultation: clear to auscultation bilaterally Cardio Jugular venous distension: no JVD Palpation: normal PMI Rate: regular rate Rhythm: regular rhythm Heart sounds: S1 normal heart sound present, S2 normal heart sound present, no click, no gallops and no murmurs GI Auscultation: normal bowel sounds Skin General skin exam: no rashes or lesions noted Neuro General: patient oriented x3 and no focal motor deficits Extrem General: Yes no clubbing, cyanosis or edema Psych Appearance: grossly normal Affect: Anxious affect present Office Procedures EKG Details: EKG shows normal sinus rhythm with normal EKG [id number], Complete Quality Reporting (2019) Adult ([facility] [address]/09/68) Smoking risk assessment performed?: Yes Patient Tobacco Use Status: Former Tobacco user Assessment & Plan Assessment & Plan (1) Exertional angina: Code(s): I20.89 - Other forms of angina pectoris Category: Medical Plan: Exertional angina with crescendo pattern with very abnormal stress test with resting wall motion abnormality on echocardiogram suggestive of hibernating myocardium. He has high likelihood of significant coronary artery disease, possibility of multivessel disease including left main. This was discussed with him in details. I think the next step in management would be doing an invasive cardiac catheterization. This was discussed with him. We discussed about the procedure in details including risks, benefits, alternatives of the procedure. He understands agrees. He is advised to avoid any exertion till is angiogram will be done in the near future. I have advised him to continue aspirin, metoprolol and atorvastatin. Advised to seek emergency care if he develops symptoms at rest. All possible outcomes of cardiac catheterization including possibility of whether PCI or surgery and possible recovery related to each procedure were discussed in details. He seems a little anxious but he understands the process and wants to follow through with a cardiac catheterization. Given his baseline EKG being normal there is high likelihood of good prognosis with revascularization. This was discussed with him. Will follow up with the clinic after cardiac catheterization and revascularization. Thank you for allowing me to partake in his care Coding Level of Care Code New Pt Level 4 (72691) Complex EM visit Add On G2211 Diagnoses Exertional angina I20.89 CPT Codes EKG - CPT: 90255-[id number], Complete ([id number])
== END 2023-12-25 09:32 | disposition home or self-care (01) ==
LOC: HO.HCS 07:52
PROVIDERS: PCP Family Medicine; Visit Provider Internal Medicine Cardiovascular Disease
DX: I25.118 Atherosclerotic heart disease of native coronary artery with other forms of angina pectoris (principal)
CPT/HCPCS: 93010; 99214; G2211

== ENCOUNTER → 2023-12-25 07:51 | Outpatient (BNVA) | payer MEDICARE, SELFPAY | PROVIDERS: PCP Family Medicine; Visit Provider Internal Medicine Cardiovascular Disease | DX: I20.89 Other forms of angina pectoris (principal) | CPT/HCPCS: 93005; 99212 ==

== ENCOUNTER → 2023-12-29 23:59 | Outpatient (BNV) | payer MEDICARE, SELFPAY | PROVIDERS: PCP Family Medicine; Visit Provider Internal Medicine Cardiovascular Disease | DX: I20.89 Other forms of angina pectoris (principal); R93.1 Abnormal findings on diagnostic imaging of heart and coronary circulation | CPT/HCPCS: 93458; 99152 ==

== ENCOUNTER 2024-02-03 10:04 | Outpatient (AMB) | payer MEDICARE, SELFPAY ==
--- OUTSIDE RECORDS SUMMARY | 2024-02-03 10:10 | XMS_ITS | Continuity of Care Document ---
Author Organization [facility] ter Address [address] [place] [id number]- Care Team Providers Care Assistant Offset Press Operator Name Role Phone Daxa DEMARCO, Yg Henry Primary Care Physician Encounter [facility] Date(s): 12/29/23 - 01/04/[address] [address]- Discharge Disposition: A-D/C Home Attending Physician: Agustin Fontenot MD Admitting Physician: Jose G Maya MD Referring Physician: Jose G Maya MD Encounter Type: Disch IP Allergies, Adverse Reactions, Alerts Substance Criticality Severity Reaction Reaction Severity Status shellfish nausea vomiting Acti ve Dust runny nose, sneezing Active Pollen runny nose, sneezing Active Immunizations Given and Recorded Vaccine Date Status Refusal Reason influenza virus vaccine, inactivated 12/30/23 Give n SARS-CoV-2 (COVID-19) mRNA-1273 vaccine 05/27/21 R ecorded SARS-CoV-2 (COVID-19) mRNA-1273 vaccine 02/07/21 R ecorded SARS-CoV-2 (COVID-19) mRNA-1273 vaccine 07/18/20 R ecorded SARS-CoV-2 (COVID-19) mRNA-1273 vaccine 06/18/20 R ecorded tetanus/diphtheria/pertussis, acel(Tdap) 03/21/10 Recorded Medications Acetaminophen Tablet 975 mg, Tablet, By Mouth, (scheduled) for mild pain, (May give via NG tube), 01/04/24 9:00:00 AM EST Start Date: 01/04/24 Stop Date: 01/04/24 Status: Completed Repeat number: 1 amiodarone 200 mg oral tablet 200 mg, 1, tablet, By Mouth, Daily, # 30 tablet, Refills 0, Tot. Refills 0, Maintenance, 01/04/24 2:01:00 PM EST, Route to Pharmacy Electronically, [facility], Partial fill upon patientrequest if the prescription is for a schedule II opioid drug., 171, cm, 01/04/24 11:16:00 EST, Height, 81, kg, 12/31/23 15:00:00 EST, Dry Weight Start Date: 01/04/24 Stop Date: 02/03/24 Status: Ordered Quantity: 30.0 Unit: tablet Repeat number: 1 amiodarone 400 mg oral tablet 1 tablet = 400 mg, By Mouth, 2 times a day, # 6 tablet, 0 Refills, Maintenance, 01/04/24 4:04:00 PMEST, Tablet, [facility], Partial fill upon patient request if the prescription is fora schedule II opioid drug., 171, cm, 01/04/24 11:16:00 EST, Height, 81, kg, 12/31/23 15:00:00 EST, Dry Weight Start Date: 01/04/24 Stop Date: 01/07/24 Status: Ordered Quantity: 6.0 Unit: tablet Repeat number: 1 aspirin 81 mg oral capsule 1 capsule = 81 mg, By Mouth, Every 24 hours, # 30 capsule, 0 Refills, Maintenance, 01/04/24 1:59:00PM EST, [facility], Partial fill upon patient request if the prescription is for a schedule II opioid drug., 171, cm, 01/04/24 11:16:00 EST, Height, 81, kg, 12/31/23 15:00:00 EST, Dry Weight Start Date: 01/04/24 Stop Date: 02/03/24 Status: Ordered Quantity: 30.0 Unit: capsule Repeat number: 1 atorvastatin 80 mg oral tablet 1 tablet = 80 mg, By Mouth, Daily at bedtime, # 30 tablet, 0 Refills, Maintenance, 01/04/24 1:59:00PM EST, Tablet, [facility], Partial fill upon patient request if the prescription is for a schedule II opioid drug., 171, cm, 01/04/24 11:16:00 EST, Height, 81, kg, 12/31/23 15:00:00 EST, Dry Weight Start Date: 01/04/24 Stop Date: 02/03/24 Status: Ordered Quantity: 30.0 Unit: tablet Repeat number: 1 Colace sodium 100 mg oral capsule 100 mg, 1, capsule, By Mouth, 2 times a day, PRN, # 20 capsule, Refills 0, Tot. Refills 0, Maintenance, for constipation, 09/21/21 10:00:00 AM EDT, [id number] upon patient request if the prescription is for a schedule II opioid drug., 173, cm, 09/21/21 7:40:00 EDT, Height, 103.3, kg, 09/20/21 21:46:00 EDT, Dry Weight Start Date: 09/21/21 Status: Ordered Quantity: 20.0 Unit: capsule Repeat number: 1 Lopressor 25 mg, Tablet, By Mouth, Hold for: SBP <100, HR <60, 01/04/24 9:00:00 AM EST Start Date: 01/04/24 Stop Date: 01/04/24 Status: Completed Repeat number: 1 metoprolol 50 mg oral tablet, extended release 50 mg, 1, tablet, By Mouth, Daily, # 30 tablet, Refills 0, Tot. Refills 0, Maintenance, 01/04/24 2:00:00 PM EST, Route to Pharmacy Electronically, [facility], Partial fill upon patient request if the prescription is for a schedule II opioid drug., 171, cm, 01/04/24 11:16:00 EST, Height, 81, kg, 12/31/23 15:00:00 EST, Dry Weight Start Date: 01/04/24 Stop Date: 02/03/24 Status: Ordered Quantity: 30.0 Unit: tablet Repeat number: 1 Vashe Topical Solution 475 mL, Topically, Every 12 hours, 0 Refills, Maintenance, Solution Start Date: 01/04/24 Status: Ordered Repeat number: 1 Problem List Condition Confirmation Course Effective Dates Status H ealth Status Informant Multi-vessel coronary artery stenosis Confirmed Active Heart failure with preserved ejection fraction Confirmed Active Hyperlipidemia Confirmed Active Obesity Confirmed Active Pre-diabetes Confirmed Active Results Radiology Reports * Exam Date Time Procedure Performing Provider Status 01/01/24 6:17 AM Chest Portable Irene Ayala; Shari th (Verified) Notes: (Chest Portable) Reason For Exam: S/P Cardiac Surgery RESULT: Chest Portable Chest Portable REASON: S P Cardiac Surgery; Clinical Question(s): Other:; Cardiac Tamponade; Special Instructions:Post Op Day 1 / Other: COMPARISON: 12/31/2023 FINDINGS: LINES AND TUBES: Endotracheal and enteric tubes have been removed. Right internal jugular central venous catheter tip projects in the SVC. Mediastinal drains and left chest tube remain in place. Multiple wires project over the patient. LUNGS AND PLEURA: Low lung volumes with mild basilar atelectasis. Linear band of scarring or atelectasis in the left midlung. No pleural effusion. No pneumothorax. HEART, MEDIASTINUM AND KHUSHBOO: Unchanged. BONES AND SOFT TISSUES: Status post median sternotomy. Left chest wall subcutaneous emphysema. IMPRESSION: Status post extubation, otherwise no significant change. WSN: [id number] Ordering Physician: Rachel Haley Dictated By: Kendrick Maravilla MD Dictated Date/Time: 01/01/24 9:42 am Reviewed By: Kendrick Maravilla MD Signed By: Kendrick Maravilla MD Signed Date/Time: 01/01/24 9:42 am Transcribed By: DAVID Transcribed Date/Time: 01/01/24 9:40 am * Exam Date Time Procedure Performing Provider Status 12/31/23 3:44 PM Chest Portable Corina Sarmiento ( Verified) Notes: (Chest Portable) Reason For Exam: S/P Cardiac Surgery RESULT: Chest Portable Chest Portable supine at 3:29 PM Reason: S P Cardiac Surgery; Clinical Question(s): Other:; Cardiac Tamponade; Special Instructions:On Admission to [facility] COMPARISON: 09/06/2021 FINDINGS: LINES AND TUBES: Tip of endotracheal tube 5.0 cm above the tan. Enteric tube extends below the diaphragm with itstip below the inferior margin of the image. Right IJ central venous catheter with tip in the SVC. 2mediastinal drainage catheters and a left thoracostomy tube. LUNGS AND PLEURA: Atelectasis in the upper midportion of the left lung. Both lungs are otherwise clear with normal vascularity. No pleural effusion. No pneumothorax. HEART, MEDIASTINUM AND KHUSHBOO: Heart is normal in size. Evidence of CABG procedure. Normal mediastinal and hilar contour. BONES AND SOFT TISSUES: Sternal suture wires. Subcutaneous emphysema in the left chest wall. IMPRESSION: Status post CABG procedure. Multiple support lines in good position as described. No pneumothorax. Atelectasis in the upper midportion of the left lung. WSN: [id number] Ordering Physician: Rachel Haley Dictated By: Keo Cabrera MD Dictated Date/Time: 12/31/23 4:05 pm Reviewed By: Keo Cabrera MD Signed By: Keo Cabrera MD Signed Date/Time: 12/31/23 4:05 pm Transcribed By: DAVID Transcribed Date/Time: 12/31/23 4:01 pm * Exam Date Time Procedure Performing Provider Status 12/29/23 10:[address] Chest W/O Contrast Tana Gallagher vivienneevans; Tammy (Verified) Notes: (CT Chest W/O Contrast) Reason For Exam: Aneurysm RESULT: CT Chest W/O Contrast CT Chest W/O Contrast INDICATION: Reason: Aneurysm; Clinical Question(s): Aneurysm; Order Comment: TECHNIQUE: Helical CT scan of the chest without IV contrast, formatted in 3 planes. Weight-based protocol was performed using automatic exposure control. CTDIvol Body: 8.07 mGy, DLP Body: 339 mGy*cm. COMPARISON: None. FINDINGS: Flosser view findings, lines and tubes: None. Trachea and airways: Patent without evidence of tracheal or endobronchial lesion. Lungs and pleura: Dependent atelectasis in both lower lobes. Calcified granuloma in the right middle lobe (78/303). No effusion or pneumothorax. Mediastinum and khushboo: No mass or hematoma. No mediastinal or hilar lymphadenopathy. No esophageal abnormality. Normal thyroid. Heart: Heart is normal in size. No pericardial effusion. Severe coronary artery calcification. Aorta: Mild vascular calcification but no aneurysm. Pulmonary arteries: Normal caliber. Chest wall soft tissues: No acute abnormality. Diaphragm: Intact. Upper abdomen: No significant abnormality. Bones: No acute abnormality. Mild degenerative changes of the thoracic spine. IMPRESSION: Mild atherosclerotic calcification of the aortic arch, though no thoracic aortic aneurysm. WSN: [id number] Ordering Physician: Agustin Fontenot Dictated By: Bam Reyes MD Dictated Date/Time: 12/29/23 11:32 a Reviewed By: Bam Reyes MD Signed By: Bam Reyes MD Signed Date/Time: 12/29/23 11:32 am Transcribed By: DAVID Transcribed Date/Time: 12/29/23 11:20 am Vital Signs Most recent to oldest [Reference Range]: 1 2 3 Height 171 cm (01/04/24 11:16 AM) 171 cm (01/04/24 7:50 AM) 171 cm (01/04/24 4:05 AM) Weight 84.2 kg (01/04/24 4:11 AM) 87.3 kg (01/03/24 6:23 AM) 88 kg (01/02/24 5:41 AM) Oxygen Saturation [94-100 %] 100 % (01/04/24 11:16 AM) 97 % (01/04/24 7:50 AM) 96 % (01/04/24 4:05 AM) Pulse Rate [55-90 bpm] 85 bpm (01/04/24 11:16 AM) 78 bpm (01/04/24 8:56 AM) 78 bpm (01/04/24 7:50 AM) Body Mass Index [18.5-24.99 kg/m2] 27.46 kg/m2 *H* (12/31/23 7:11 AM) 27.46 kg/m2 *H* (12/31/23 5:08 AM) 26.85 kg/m2 *H* (12/29/23 1:52 PM) Blood Pressure [90-138/55-84 mm Hg] 102/65mm Hg (01/04/24 11:16 AM) 110/59mm Hg (01/04/24 8:56 AM) 110/59mm Hg (01/04/24 7:50 AM) Respiratory Rate [16-30 br/min] 18 br/min (01/04/24 11:16 AM) 14 br/min *L* (01/04/24 10:16 AM) 18 br/min (01/04/24 7:50 AM) Temperature [96.8-100.4 DegF] 97.5 DegF (01/04/24 11:16 AM) 98.0 DegF (01/04/24 7:50 AM) 98.3 DegF (01/04/24 4:05 AM) Liters per Minute 2 L/min (01/02/24 2:37 AM) 2 L/min (01/02/24 12:43 AM) 1 L/min (01/01/24 2:00 AM) Mode of Delivery (Oxygen) Room air (01/04/24 11:16 AM) Room air (01/04/24 7:50 AM) Room air (01/04/24 4:05 AM) Blood pressure sites Arm, left (01/04/24 11:16 AM) Arm, left (01/04/24 7:50 AM) Arm, left (01/04/24 4:05 AM) Temperature Route Oral (01/04/24 11:16 AM) Oral (01/04/24 7:50 AM) Oral (01/04/24 4:05 AM) Dry Weight 81 kg (12/31/23 3:00 PM) 81.3 kg (12/29/23 9:01 PM) 103.3 kg (12/29/23 8:57 PM) Weight Obtained Via Standing scale (01/04/24 4:11 AM) Bed scale (01/01/24 5:00 AM) Standing scale (12/31/23 5:08 AM) Dry Weight Obtained Via Bed scale (12/29/23 1:52 PM) Social History Social History Type Response Smoking Status Former smoker, quit more than 30 days ago entered on: 09/20/21 Sex Sex Representation Male (finding) Note * Eusebio Jones RN: PERFORM, SIGN, VERIFY Event Display: Cardiac Rehab Note Authored Date: Patient: KEYSHAWN GRAVES Age: 68 years Sex: Male : 1955 Associated Diagnoses: None Author: Eusebio Jones RN Attended Cardiac Surgery rounds - see progress note for updated plan of care. * Daphney Del Angel RN: SIGN, MODIFY, PERFORM, SIGN, VERIFY Event Display: Cardiac Rehab Note Authored Date: Patient: KEYSHAWN GRAVES Age: 68 years Sex: Male : 1955 Associated Diagnoses: None Author: Daphney Del Angel RN Diagnosis Cardiac Rehab Diagnosis: CABG x3. Pre-exercise Vitals Vital Signs Comment: Reviewed in CIS. Pre-exercise Physical Examination Neurologic: alert & oriented. Activity Activity comment: Pt just back from walk/ doing stairs with PT. Will return this afternoon for ambulation if time allows. Incentive Spirometry Incentive Spirometry: Good technique - effort, IS 500-750. Compliance problems: Compliance problems: diet, exercise. . Patient Education Education: Patient alone, Written material included, Reviewed all post op education with pt at bedside (KYMITT, sternal incision care, driving instructions, importance of continued ambulation /use ofIS. Education topic Teachback comprehension 50% Recommendation and Plan Ambulate: 4-6 times/day, with assistive device. Encourage: Incentive spirometer, Appetite, AROM. Outpatient follow up recommended: [facility], in 4 weeks. Cardiac Rehab: Daily. * Bean BARNETT, Daphney Dave: PERFORM Event Display: Cardiac Rehab Note Authored Date: Revisited with pt for ambulation, pt ambulated several laps around entire unit independently with walker. Reviewed post op education one last time with pt, questions answered. Plan for DC around dinner time tonight * Sourav Urbina RN: PERFORM Event Display: Discharge/Transfer Note Hospital Authored Date: [id number] Nursing Discharge Note Entered On: 01/04/2024 17:09 EST Performed On: 01/04/2024 17:10 EST by Sourav Urbina RN Nursing Discharge Note 2 Discharge Time : 01/04/2024 17:10 EST Discharge Level of Care at Discharge : Homehealth/VNA Discharge VNA/Hospice/Home Care(v001) : [facility] [phone] Patient Left Unit Via : Wheelchair Patient Accompanied Off Unit with : Responsible adult DC Instructions Provided & Signed by Pt : Yes Patient Understands D/C Instructions : Yes Patient Instructions Discharge Signed : Yes Did Pt have Specialty Bed or Wound Vac : No Sourav Urbina RN - 01/04/2024 17:08 EST * Sherrie Acevedo NP: PERFORM, MODIFY, MODIFY Event Display: Discharge/Transfer Note Hospital Authored Date: [id number] Patient: ??KEYSHAWN GRAVES ?CECILE: [id number]?? Age:??68 Years?Sex:??Male?:??1955?? Patient Information Discharge Location: Primary Care Physician: Yg Mittal MD Admit Date/Time: 12/29/2023 09:11 Discharge Disposition Discharge Disposition: Home with Home Health Discharge Diagnosis Multi-vessel coronary artery stenosis (I25.10) Hyperlipidemia (E78.5) Obesity (E66.9) Pre-diabetes (R73.03) Heart failure with preserved ejection fraction (I50.30) Stable angina pectoris (I20.89) S/P CABG x 3 (Z95.1) _ Discharge Medications amiODARONE (amiodarone 200 mg oral tablet)?200?Milligram?1?tablet?By Mouth?Daily?for 30?Days amiODARONE (amiodarone 400 mg oral tablet)?1?tab(s)?400?Milligram?By Mouth?2 times a day?for 3?Days Aspirin (aspirin 81 mg oral capsule)?1?capsule?81?Milligram?By Mouth?Every 24 hours?for 30?Days Atorvastatin (atorvastatin 80 mg oral tablet)?1?tab(s)?80?Milligram?By Mouth?Daily at bedtime?for 30?Days Docusate (Colace sodium 100 mg oral capsule)?100?Milligram?1?capsule?By Mouth?2 times a day?as needed?for constipation Emollients, Topical (Vashe Topical Solution)?475?Milliliter?Topically?Every 12 hours Metoprolol (metoprolol 50 mg oral tablet, extended release)?50?Milligram?1?tablet?ByMouth?Daily?for 30?Days ? Hospital Course 68-year-old male with PMHx significant for prediabetes, HLD, ex-smoker, prostate cancer post prostatectomy and daily alcohol use- 5 beer/day. Patient present for an elective cath as an ischemic workup for complaint of dyspnea and exertional chest pain and found to have severe MVD. CTS was consultedfor evaluation for surgical revascularization and now presents for CABG. ?? Objective 12/31/23 S/p CABG x3 (RIOS to LAD, RA to OM, SVG to RPDA) LVEF 45% ?? CARDIAC SURGEON: Dr. Fontenot RANGE FEEDER: Dr. Lynn ?? Neurologic: Acute post-op pain Hx EtOH use - Multimodal pain regimen: Tylenol, Baclofen prn, Oxycodone prn - Out of bed to chair with nursing staff, encourage ambulation - Patient reports he feels signficiantly weaker than his baseline while walking; PT consulted for formal evaluation - CIWA scores ?? Cardiac: S/p CABG x3 Hx??HLD - Remains in normal sinus rhythm with HR 70-80s - Previously in Afib with RVR, amiodarone infusion completed this afternoon - Amiodarone 400mg twice daily x7 days followed by 200mg daily.??(Begin taking 200mg daily??when you have completed your 400mg amiodarone twice a day. 400 twice a day is for 3 days and should complete the . Start taking the 200mg daily on the .) - Metoprolol increased to 25mg twice daily?? - Aspirin 80mg daily, atorvastatin 80mg nightly ?? Pulmonary: Hx former smoker - Breathing comfortably on room air maintaining SpO2 >92% - Encourage ambulation,??incentive spirometry, and coughing/deep breathing ?? Gastrointestinal: - Cardiac diet - PPI daily for GI prophylaxis - Bowel regimen, last BM prior to surgery ?? Renal/Genitourinary: - Baseline creatinine 0.8-0.9, creatinine stable at 0.8 today -??Diuresing on Lasix 20mg IV twice daily, as he remains 6kg above his pre-op dry weight - Voiding without issues - Trend renal function and??electrolytes daily ?? Hematologic: Acute post-op anemia - H&H 7.9/23.2 today - Likely related to surgery in addition to a dilutional component?? - No evidence of active bleeding - Trend daily CBC - Lovenox??SQ for DVT prophylaxis ?? Endocrine:?? Stress hyperglycemia Hx prediabetes - Patient reportedly carries diagnosis of prediabetes, no pre-op A1c obtained - Post-op A1c 4.9% -??BG??125-196 over the past 24??hours - Currently on Lantus 14U daily and lispro sliding scale ?? Infectious disease: - WBC 5.7k, he remains afebrile - Amy-operative antibiotics complete - Trend WBC daily and monitor fever curve ? . Physical Exam General Appearance: No acute distress. Neurologic: Alert, oriented, nonfocal. Cardiac: Rate and rhythm regular. S1, S2 heard.?? Extremities: Trace edema bilaterally. Vascular: Palpable radial, pedal pulses bilaterally.? Respiratory: Lung sounds clear with diminished bases bilaterally. No crackles, wheezing. Respiratory effort is unlabored.?? Gastrointestinal: Abdomen is soft, nontender, nondistended. +Bowel sounds in all 4 quadrants. Integumentary: Midsternal and chest tube incisions clean, dry.?? Musculoskeletal: MANN independently. Surgical Procedures CABG Rios Endovein and Endoradial 12/31/2023 10:10 Pending Results BUN ordered on 01/04/2024 CBC ordered on 01/04/2024 Creatinine ordered on 01/04/2024 Electrolytes ordered on 01/04/2024 Magnesium Level ordered on 01/04/2024 Type and Screen ordered on 01/01/2024 Patient Education Titles WebMD Ignite Patient Education - Cardiac Surgery Discharge Instructions?? Web[employer]ite Patient Education - Cardiac Rehabilitation?? Follow-Up Appointments Added Follow Up ?Time Frame ?Comments Leah DEMARCO, Richar Manuel?4 to 5 weeks?You will need to call your bingo usher to schedule a follow up appointment. Yg Mittal MD?4 to 5 weeks?You will need to call your primary care provider to schedule a follow up appointment.?? [facility] Cardiac Surgery?1 to 2 weeks?The cardiac surgery office will reach out to you to schedule your follow up visit. Patient Instructions Sternum Wound care:??May take shower; do not apply lotions or perfumed soap to surgical wound; Pat dry do not rub wounds. Apply Vashe solution to wound as ordered until bottle empty.?? Call Cardiac Surgeon Office?for??signs of infection which?include fever, chills, reddness, pus like drainage or wound separation [phone] at any time for questions or concerns Weigh yourself daily at the same time of day, preferably?in the morning and record. If you gain?or loose more than 3 pounds in 1 day or 5 pounds in one week, call the cardiac surgery office at [phone].? Home Health Face to Face *Denotes mandatory bray ?? *I certify that this patient is under my care and that I or an allowed non- physician working with me had a face to face encounter with the patient on this date:??01/04/2024 13:57 ?? *The encounter with the patient was in whole, or in part, for the following medical condition, which is the primary diagnosis(es) for home health care:??Multi-vessel coronary artery stenosis (I25.10) Hyperlipidemia (E78.5) Obesity (E66.9) Pre-diabetes (R73.03) Heart failure with preserved ejection fraction (I50.30) Stable angina pectoris (I20.89) S/P CABG x 3 (Z95.1) ?? *Select the indications for the discipline/s that are being arranged for this patient. Nursing (select all that apply): [_] None [X] Medication management (reconciliation, teaching)?? [X] Chronic disease management?? [X] Wound care and treatment?? [X] Home safety evaluation [_] Administer SQ/IM/IV medications?? [_] Cath care?? [_] Drain care?? [_] Trach or GT care?? Other _ Occupation Therapy (select all that apply): [_] None [_] ADL Management [_] Fall prevention training [_] Energy conservation [_] Cognitive training Other _ Physical Therapy (select all that apply): [_] None [_] Functional mobility training [_] Home exercise program to strengthen [_] Increase ROM?? [_] Falls prevention training [_] Home maintenance program for chronic disease Other _ Speech Therapy (select all that apply): [_] None [_] Swallow evaluation and training [_] Speech and language training [_] Cognitive training to process, organize, and/or recall information Other _ ? *Homebound due to (select all that apply): [X] Inability to leave home without assistance/supervision [_] Inability to ambulate without assistance [_] Pain [X] Decreased strength and endurance [_] Unsteady gait [_] Severe SOB and fatigue [_] Impaired transfers [_] Inability to negotiate stairs [_] Limited weight bearing [_] Mental status change? *Physician Signature:??Dr Fontenot ?? *By signing this, I certify that I have personally evaluated the patient and agree with the findings and recommendations as documented above. ? 35??minutes spent on discharge * Ciara BARNETT, Sourav: PERFORM Event Display: Patient Education/Instruction Authored Date: Inpatient Adult Discharge Instructions. [address] [address] Name: KEYSHAWN GRAVES : 1955?? Visit: 12/29/2023 09:11?? Current Date: 01/04/2024 15:55 ?? Account: [id number]?? Inpatient Adult Discharge Instructions We would like to thank you for allowing us to assist you with your healthcare needs. The following includes patient education materials and information regarding your injury/illness. Our entire staffstrives to provide an excellent experience for our patients and their families. PLEASE ENSURE YOU FOLLOW-UP PER THE INSTRUCTIONS BELOW! ?? YOUR OPINION IS IMPORTANT TO US! Please complete the survey you may receive by mail or email. Your feedback will be used to make improvements to the healthcare experiences of our patients and their families. Surveys are administered by [employer] ?? If further treatment with your primary care physician or another doctor is recommended, it is important for you to keep the appointment. Call your primary care physician or return to the Emergency Department immediately if your condition worsens, fails to improve, or new symptoms develop. If you need to find a doctor, you can call [facility] Link for a referral at [phone] or toll free at [phone] or log in to [email or web address].. ?? [facility], in keeping with [facility] guidance, no longer requires face masks for staff, patientsor visitors in most situations. Similiar to time spent indoors at other locations, there is the chance that you were exposed to repiratory viruses during your time with us (such as flu or COVID-19). If you develop symptoms concerning for a viral respiratory infection, please seek testing (and treatment if indicated) from your medical provider or home test kit. ?? You can view and manage your care through the patient portal or by using a health care [place] of your choosing. [facility] [facility] is a website that allows you to securely view your medical information including your hospital discharge summary, office visit summaries, medications and follow-up visits. You can also request appointments, renew medications, and request access to your medical information using a health care [place] of your choosing, or just ask a question. You can enroll at [email or web address] or register during your next office visit. You have been discharged from [facility], Patient Care Unit: M6??. If you have any questions regarding these instructions, including results of studies pending, afteryou leave, please call us and we will be happy to assist you 08/09. [facility] Your Care Team Attending Physician Agustin Fontenot MD?? Consulting Providers Agustin Fontenot MD?? Discharging Providers Curtis PANTOJA, Sherrie Cooper Reason for Your Visit Presented for Diagnostic Cardiac Cath?? Your Diagnosis Multi-vessel coronary artery stenosis Hyperlipidemia Obesity Pre-diabetes Heart failure with preserved ejection fraction S/P CABG x 3 Stable angina pectoris Tests Performed Below is a partial list of the tests performed during your hospitalization. You may have had other tests and procedures not included in this list. Please discuss all test results with your provider. ABG POC CARTRIDGE Albumin Level BASE EXCESS POC CARTRIDGE BUN CALCIUM IONIZED POC CART CBC CBC w/ Differential Comprehensive Metabolic Panel COVID-19 (2019 Novel Coronavirus) PCR COVID-19 (Novel Coronavirus), Rapid PCR Creatinine CRP Electrolytes Ferritin Folate Level Glucose Level GLUCOSE POC GLUCOSE POC CARTRIDGE HEMATOCRIT POC CARTRIDGE HEMOCHRON ACT-PLUS HEMOGLOBIN A1C HEMOGLOBIN POC CARTRIDGE Hgb + Hct HOLD GEL TUBE HOLD GREEN TUBE INR Ionized Calcium Iron + Iron Binding Capacity Magnesium Level MRSA/MSSA PCR Nasal Swab Nephro Check NT ProBNP Phosphorus Level Platelet Count Potassium Level POTASSIUM POC CARTRIDGE PTT SODIUM POC CARTRIDGE Transferrin Troponin T, High Sensitivity TSH Type and Screen Vitamin B12 Level Chest CT W/O Contrast XR Chest Portable ABG (Lab) POC Cartridge (ABG POC CARTRIDGE)?? Albumin Level?? B Type Natriuretic Peptide (NT ProBNP)?? BUN?? Base Excess (Lab) POC Cartridge (BASE EXCESS POC CARTRIDGE)?? C Reactive Protein (CRP)?? CBC?? CBC w/ Differential?? COVID-19 (2019 Novel Coronavirus) PCR?? COVID-19 (Novel Coronavirus), Rapid PCR?? CT Chest W/O Contrast (Chest CT W/O Contrast)?? Comprehensive Metabolic Panel?? Creatinine?? Electrolytes?? Ferritin?? Folate Level?? Glucose (Lab) POC Cartridge (GLUCOSE POC CARTRIDGE)?? Glucose Level?? Glucose POC?? Hematocrit (Lab) POC Cartridge (HEMATOCRIT POC CARTRIDGE)?? Hemoglobin (Lab) POC Cartridge (HEMOGLOBIN POC CARTRIDGE)?? Hemoglobin A1C (Monitoring) (HEMOGLOBIN A1C)?? Hgb + Hct?? High??Sensitivity??Troponin T (Troponin T, High Sensitivity)?? Hold Gel Top Tube (HOLD GEL TUBE)?? Hold Green Top Tube (HOLD GREEN TUBE)?? INR?? Ionized Calcium?? Ionized Calcium(POC) POC Cartridge (CALCIUM IONIZED POC CART)?? Iron + Iron Binding Capacity?? MRSA/MSSA PCR Nasal Swab?? Magnesium Level?? Nephro Check?? POC ACT-Plus (HEMOCHRON ACT-PLUS)?? PTT?? Phosphorus Level?? Platelet Count?? Potassium (Lab) POC Cartridge (POTASSIUM POC CARTRIDGE)?? Potassium Level?? Sodium (Lab) POC Cartridge (SODIUM POC CARTRIDGE)?? TSH?? Transferrin?? Type and Screen?? Vitamin B12 Level?? Chest Portable (XR Chest Portable)?? Primary Care Provider Yg Mittal MD? Advance Directive Health Care Proxy on File Yes - Health Care Proxy Discharge Vitals Temperature: 97.5 DegF Height: 171 cm Pulse Rate: 85 bpm Weight: 84.2 kg Respiratory Rate: 18 br/min Body Mass Index:??27.46 kg/m2??High Systolic Blood Pressure: 102 mm Hg Body surface area: 1.95 Diastolic Blood Pressure: 65 mm Hg ?? Oxygen Saturation: 100 % ?? Studies Pending All studies ordered during this hospital stay have been completed unless listed below. Please discuss all pending results with your provider listed above in these instructions. ?? BUN?? CBC?? Creatinine?? Electrolytes?? Magnesium Level?? Type and Screen?? What to do next Instructions From Your Doctor [place] Wound care:??May take shower; do not apply lotions or perfumed soap to surgical wound; Pat dry do not rub wounds. Apply Vashe solution to wound as ordered until bottle empty.?? Call Cardiac Surgeon Office?for??signs of infection which?include fever, chills, reddness, pus like drainage or wound separation [phone] at any time for questions or concerns Weigh yourself daily at the same time of day, preferably?in the morning and record. If you gain?or loose more than 3 pounds in 1 day or 5 pounds in one week, call the cardiac surgery office at [phone].? Orders? 01/04/24 14:53:00 EST?? You Need to Schedule the Following Appointments Follow Up with??Cardiac Rehab [facility] When:??02/02/2024 09:00 AM EST Why: If you need to reschedule this appointment please call [phone] Where: [address] [place] [address]- [phone] Follow Up with??Richar Lynn MD When:??Within 4 to 5 weeks Why: You will need to call your bingo usher to schedule a follow up appointment. Where: [address] [facility] [place] [address]- Follow Up with??Yg Mittal MD When:??Within 4 to 5 weeks Why: You will need to call your primary care provider to schedule a follow up appointment.?? Where: [address] [place] [address]- Follow Up with??[facility] Cardiac Surgery When:??Within 1 to 2 weeks Why: The cardiac surgery office will reach out to you to schedule your follow up visit. Where: [address] [place] [address]- Discharge Medications KEYSHAWN GRAVES :1955 Visit Date:12/29/2023 Medications: Please continue your medications until treatment is completed or stopped by your provider. Medications not listed below should be discontinued. Discuss any questions related to medications with your provider. What How Much When Instructions Next Dose New amiODARONE (amiodarone 200 mg oral tablet) 1 tab(s) Oral Daily Duration: 30 Days Pickup at [place] [address] starting 01/07/24 in am New amiODARONE (amiodarone 400 mg oral tablet) 1 tab(s) Oral Twice a day Duration: 3 Days Pickup at [place] [address] tonight at 9 pm New Emollients, Topical (Vashe Topical Solution) 475 Milliliter Topically Every 12 hours tonight in the evening Changed Aspirin (aspirin 81 mg oral capsule) 1 capsule Oral Every 24 hours Duration: 30 Days Pickup at [place] [address] tomorrow in am Changed Atorvastatin (atorvastatin 80 mg oral tablet) 1 tab(s) Oral Daily at Bedtime Duration: 30 Days Pickup at [place] [address] tonight at bedtime Changed Metoprolol (metoprolol 50 mg oral tablet, extended release) 1 tab(s) Oral Daily Duration: 30 Days Pickup at [place] [address] tomorrow in am Unchanged Docusate (Colace sodium 100 mg oral capsule) 1 capsule Oral Twice a day as needed for for constipation as needed Pharmacy Information [place] [address]: [address] [place] [address] [phone] ?? What When Comments Stop Taking Famotidine (famotidine 20 mg oral tablet) TAKE 1 TABLET ORALLY 2 TIMES A DAY FOR START 1 DAY BEFORE CARDIAC CATHETERIZATION ?? Prescription Given During Visit Aspirin (aspirin 81 mg oral capsule) - 1 capsule = 81 mg, By Mouth, Every 24 hours, # 30 capsule, 0Refills, [place] [address], [address] [place] [phone]?? Atorvastatin (atorvastatin 80 mg oral tablet) - 1 tablet = 80 mg, By Mouth, Daily at bedtime, # 30 tablet, 0 Refills, [place] [address], [address] [place] [phone]?? Metoprolol (metoprolol 50 mg oral tablet, extended release) - 1 tablet = 50 mg, By Mouth, Daily, # 30 tablet, 0 Refills, [facility], [address] [place] [phone]?? amiODARONE (amiodarone 400 mg oral tablet) - 1 tablet = 400 mg, By Mouth, 2 times a day, # 6 tablet, 0 Refills, [place] [address], [address] [place] [phone]?? amiODARONE (amiodarone 200 mg oral tablet) - 1 tablet = 200 mg, By Mouth, Daily, # 30 tablet, 0 Refills, [facility], [address] [place] [phone]?? Laboratory Results Below is a partial list of the most recent Laboratory test results done prior to this discharge. You may have had other tests and procedures not included in this list. Please discuss all test resultswith your provider. Est Creatinine Clearance - 77.01 mL/min (01/04/2024) RBC Available - RE (12/31/2023) RBC Unit ID - [id number] (12/31/2023) ABG POC CARTRIDGE (12/31/2023) ???pH (POC) POC Cartridge - 7.40???pCO2 (POC) POC Cartridge - 41.7 mm Hg???pO2 (POC) POC Cartridge - 101 mm Hg???Estimated Bicarbonate (POC) POC Cart - 25.7 mmol/L???% O2 Sat Arterial (POC) POC Cartridge - 98 %???Specimen Type - Blood Gas - ARTERIAL Albumin Level (12/30/2023) ???Albumin - 4.5 Gm/dL BASE EXCESS POC CARTRIDGE (12/31/2023) ???Base Excess (POC) POC Cartridge - 1 BUN (01/04/2024) ???BUN - 15 mg/dL CALCIUM IONIZED POC CART (12/31/2023) ???Ionized Calcium (POC) POC Cartridge - 1.12 mmol/L CBC (01/04/2024) ???WBC - 7.6 k/mm3???RBC - 2.58 m/mm3???Hgb - 8.4 Gm/dL???Hct - 25.2 %???MCV - 97.7 femtoliters???MCH - 32.6 pg???MCHC - 33.3 Gm/dL???Platelet Count - 231 k/mm3???RDW-SD - 43.0 femtoliters???MPV - 10.5 femtoliters???Nucleated RBC (Automated) - 0.0 #/100 WBC'S???Abs. NRBC - 0.0 k/mm3 CBC w/ Differential (01/01/2024) ???WBC - 5.4 k/mm3???RBC - 2.76 m/mm3???Hgb - 9.0 Gm/dL???Hct - 26.1 %???MCV - 94.6 femtoliters???MCH - 32.6 pg???MCHC - 34.5 Gm/dL???Platelet Count - 178 k/mm3???RDW-SD - 40.8 femtoliters???MPV - 10.7 femtoliters???Nucleated RBC (Automated) - 0.0 #/100 WBC'S???Abs. NRBC - 0.0 k/mm3???Abs. Neut - 3.9 k/mm3???Abs. Lymph - 0.6 k/mm3???Abs. [place] - 0.8 k/mm3???Abs. Eo - 0.0 k/mm3???Abs. Baso - 0.0 k/mm3???Neut % - 71.9 %???Lymph % - 11.6 %???[place] % - 15.7 %???Eos % - 0.2 %???Baso % - 0.2 %???Imm Gran - 0.4 %???Abs. Imm Gran - 0.0 k/mm3 Comprehensive Metabolic Panel (12/30/2023) ???Sodium - 139 mmol/L???Potassium - 3.9 mmol/L???Chloride - 100 mmol/L???Bicarbonate Level - 27 mmol/L???Anion Gap - 12???Glucose Level - 110 mg/dL???BUN - 21 mg/dL???Creatinine-Blood - 0.97 mg/dL???Estimated GFR Creatinine - 86 ML/MIN/1.73 M2???Calcium - 9.3 mg/dL???Protein, Total - 6.2 Gm/dL???Albumin - 4.1 Gm/dL???AG Ratio - 2.0???Alkaline Phosphatase - 55 units/L???AST (SGOT) - 23 units/L???ALT (SGPT) - 23 units/L???Bilirubin, Total - 0.4 mg/dL COVID-19 (2019 Novel Coronavirus) PCR (12/30/2023) ???COVID-19 PCR Specimen Source - NASAL???COVID-19 PCR Result - NEGATIVE COVID-19 (Novel Coronavirus), Rapid PCR (12/31/2023) ???COVID-19 by RT-PCR - NEGATIVE Creatinine (01/04/2024) ???Creatinine-Blood - 0.88 mg/dL???Estimated GFR Creatinine - 94 ML/MIN/1.73 M2 CRP (12/30/2023) ? ?C-Reactive Protein - <0.3 mg/dL Electrolytes (01/04/2024) ???Sodium - 144 mmol/L???Potassium - 3.6 mmol/L???Chloride - 104 mmol/L???Bicarbonate Level - 27 mmol/L???Anion Gap - 13 Ferritin (12/30/2023) ???Ferritin Level - 393 ng/mL Folate Level (12/30/2023) ? ?Folic Acid Level - >40.0 ng/mL Glucose Level (01/01/2024) ???Glucose Level - 135 mg/dL GLUCOSE POC (01/04/2024) ???Glucose, POC - 178 mg/dL GLUCOSE POC CARTRIDGE (12/31/2023) ???Glucose (POC) POC Cartridge - 138 HEMATOCRIT POC CARTRIDGE (12/31/2023) ???Hematocrit (POC) POC Cartridge - 25 % HEMOCHRON ACT-PLUS (12/31/2023) ???POC ACT-Plus - 104.0 seconds HEMOGLOBIN A1C (01/03/2024) ???Hemoglobin A1C (Monitoring) - 5.1 % HEMOGLOBIN POC CARTRIDGE (12/31/2023) ???Hemoglobin (POC) POC Cartridge - 8.5 Gm/dL Hgb + Hct (12/31/2023) ???Hgb - 9.1 Gm/dL???Hct - 27.1 % HOLD GEL TUBE (12/30/2023) ???Hold Gel Top - SPECIMEN DISCARDED AFTER 1 WEEK HOLD GREEN TUBE (12/30/2023) ???Hold Green Top - SPECIMEN DISCARDED AFTER 1 WEEK INR (12/31/2023) ???INR - 1.2???Protime (PT) - 12.4 seconds Ionized Calcium (12/31/2023) ???Calcium, Ionized pH Corrected - 1.17 mmol/L Iron + Iron Binding Capacity (12/30/2023) ???Iron Level - 105 mcg/dL???Iron Binding Capacity, Unsaturated - 202 mcg/dL???Iron Binding Capacity, Estimated Total - 307 mcg/dL???% Iron Saturation - 34 % Magnesium Level (01/04/2024) ???Magnesium - 2.1 mg/dL MRSA/MSSA PCR Nasal Swab (12/29/2023) ???MRSA PCR Result - Negative, MRSA target DNA not detected.???S Aureus PCR Result - Negative, SA target DNA not detected. Nephro Check (01/01/2024) ???Acute Kidney Injury Risk Score - 0.38 NT ProBNP (12/29/2023) ???Nt-Probnp - 1737 pg/mL Phosphorus Level (12/30/2023) ???Phosphorus - 2.9 mg/dL Platelet Count (12/31/2023) ???Platelet Count - 202 k/mm3 Potassium Level (12/31/2023) ???Potassium - 4.8 mmol/L POTASSIUM POC CARTRIDGE (12/31/2023) ???Potassium (POC) POC Cartridge - 4.4 mmol/L PTT (12/31/2023) ???APTT - 26.9 seconds SODIUM POC CARTRIDGE (12/31/2023) ???Sodium (POC) POC Cartridge - 137 mmol/L Transferrin (12/30/2023) ???Transferrin - 252 mg/dL Troponin T, High Sensitivity (12/29/2023) ???High Sensitivity Troponin (HSTnT) - 24 ng/L TSH (12/29/2023) ???TSH - 0.59 uIU/mL Type and Screen (01/03/2024) ???Blood Type - B Positive???Antibody Screen - Negative Vitamin B12 Level (12/30/2023) ???Vitamin B12 Level - 885 pg/mL You will be contacted within 72 hours with your results. Immunizations This Visit Given Vaccine Date influenza virus vaccine, inactivated 12/30/2023 Allergies (NKA means No Known Allergies) Dust??(runny nose, sneezing) Pollen??(runny nose, sneezing) shellfish??(nausea vomiting) Problems Active Problems??(5) Heart failure with preserved ejection fraction?? Hyperlipidemia?? Multi-vessel coronary artery stenosis?? Obesity?? Pre-diabetes?? Education Materials Below is the list of Educational Leaflet Providered with your Discharge Instructions. Web[employer] Patient Education - Cardiac Surgery Discharge Instructions?? [employer] Patient Education - Cardiac Rehabilitation?? Valuables and Belongings I fully understand and agree that [facility] accepts no responsibility for all my personal property including clothing, toilet articles, radios, jewelry, dentures, hearing aids, rings, money, or any other property that is in my possession or is brought to me after admission. I understand certain valuables may be placed in a hospital safe for a short period of time. I understand that the hospital is not liable for loss or damage due to accident, fire, or other natural occurrence while said property is in the safe. I accept full responsibility for any personal property that I keep with me, and will not hold the hospital responsible in case of loss or disappearance. I acknowledge that i have been encouraged to send valuables and belongings home. ?? Review of Valuable and Belonging List: With patient Date for Pt to Sign Valuables/Belongings: 12/31/23 07:11:00 ?? Valuables & Belongings ?? Clothes Electronic devices Jewelry Monetary Items Personal devices Miscellaneous Medications (Valuables) Valuables at Bedside Jacket, Pants, Shirt, Shoes, Undergarments Cell phone ?? Wallet Glasses ?? Tablets Valuables Sent Home ? Valuables Sent to Security ? Valuables Sent to Locker ? Other Discharge Information ? Case Management Discharge Plan?? Discharge Plan?? Discharge Agency Information?? Discharge Level of Care at Discharge: Homehealth/VNA Name of Agency #1: [facility] Discharge Rx Program: Discharge Prescription Program Service Categories #1: Physical Therapy, Assisted Discharge Rx Program: Discharge Prescription Program Service Comments #1: A referral has been made to [facility] to provide nursing and PT services at home. ??The agency will contact you to set up a visit. ??Please call [phone] if you donot hear from them within 24 hours of discharge. Discharge Rx Program: Discharge Prescription Program Agency Automation Sales Manager #2: [facility] Discharge VNA/Hospice/Home Care: [facility] [phone] Service Categories #2: Walker ?? Pulmonary Rehab Status?? Pulmonary Rehab Discharge Status?? CPAP/BiPAP Mask Size: Medium Respiratory Rate: 18 br/min PEEP: 5 ? Cardiac Rehab Assessment?? Cardiac Rehab Inpatient Assessment?? Comments-Education: Move in the tube, post op guidlines, crdiac risk factor modification, IS use Comments-Exercise Activity: home walking, move in the tube, post op guidlines Comments-Nutrition: per RD Comments-Lipids: diest exercise and medication compliance Comments-Other plan of care: Phase 2 CR referral to [facility] Srivastava Common Emergency Awareness Tips IS IT A STROKE? Act FAST and Check for these signs: FACE Does the face look uneven? ARM Does one arm drift down? SPEECH Does their speech sound strange? TIME Call at any sign of stroke ?? Heart Attack Signs Chest discomfort: Most heart attacks involve discomfort in the center of the chest and lasts more than a few minutes, or goes away and comes back. It can feel like uncomfortable pressure, squeezing, fullness or pain. Discomfort in upper body: Symptoms can include pain or discomfort in one or both arms, back, neck, jaw or stomach. Shortness of breath: With or without discomfort. Other signs: Breaking out in a cold sweat, nausea, or lightheaded. Remember, MINUTES DO MATTER. If you experience any of these heart attack warning signs, call to get immediate medical attention! ?? Smoking can increase your chances of developing chronic health problems and can cause harmful effects to other family members in your house. If you smoke, you are strongly encouraged to quit. Please call [facility] [facility] at [phone] or [phone] ([phone]) or log in to [email or web address] for referrals to smoking cessation programs. ?? 343 Suicide & Crisis Lifeline is available 08/09 if you or someone you know needs to find a reason to keep living. By calling 252 you'll be connected to a skilled, trained counselor at a crisis center in your area. INPATIENT DISCHARGE INSTRUCTIONS SIGNATURE PAGE KEYSHAWN GRAVES Location:[facility] Registration Date and Time:12/29/2023 09:11 EST Primary Care Physician: Daxa DEMARCO , Yg Henry, Attending Physician: Corie DEMARCO, [facility], I KEYSHAWN GRAVES, have received the above patient education materials/instructions and have verbalized understanding. If ambulance or transport services are being used I further acknowledge being given a choice of service. ?? If you need to contact me, please call me at this number: . Patient/Indigo Mixer Name: Patient/Indigo Mixer Signature: Relationship to Patient: Witness Name/Signature: Date: * Daphney Del Angel RN: PERFORM, SIGN, VERIFY Event Display: Patient Education Handout Authored Date: [id number] * Sherrie Acevedo NP: PERFORM Event Display: Patient Education Leaflets Authored Date: [id number] Cardiac Surgery Discharge Instructions ?? 605 Patient Education Materials Cardiac Surgery Discharge Instructions ?? Here is information related to your condition to help you when you get home. ?? Call the Cardiac Surgery office if you experience any of the following: ??? Temperature of 101?? or above, chills, and or sweating. ??? Low grade fever of 99?? - 100?? lasting for a week. ??? Changes in breathing, chest pain, abnormal pain, dizziness, change in pulse, pulse rate or palpitations. ??? Worsening shortness of breath. ??? New onset nausea, vomiting or diarrhea. ??? New rash, cough, dizziness, leg cramps, or blurred vision. ??? Any bleeding or swelling at the incision site or if a hard lump forms. ??? Any drainage, redness, tenderness, or edges pulling apart at your surgical incision site. ??? A weight gain of more than 2-3 pounds in one day or 5 pounds in 1 week. ??? Worsening ankle swelling or leg pain ??? Pain in calf that becomes worse when pointing toe up to head ??? Sharp pain when taking a deep breath ??? Urinary tract infection: frequent urination, burning with urination, or urgency to urinate. ??? Extreme Fatigue ?? Call 911 if: ??? You develop a new onset of weakness, numbness, loss of vision, slurred speech or any concern for a stroke or mini stroke. ??? If you develop numbness, tingling, loss of sensation, and or coolnessto your arms or legs. ??? Fainting, confusion, or disorientation. ??? Sudden, severe headache. ??? If you develop chest pain or discomfort that is not relieved with rest ??? If profuse bleeding (doesnot stop in 30 minutes) occurs, hold pressure to the site and call 911, [address] not [address] yourself to the nearest hospital. ??? Bright red color in your stool. ??? Coughing or vomiting up bright red blood. ??? Heart rate faster than 150 beasts/minute with shortness of breath or new palpitations. ??? Severe abdominal pain ? ? Extreme weakness and/or chills often associated with fever >101??. ?? Follow Up: ?? A follow up appointment should be made with your doctors. If you do not have appointments scheduled, make them when you get home from the hospital. Follow up care is important; it is strongly encouraged that you to keep your appointments. ??? Cardiac Surgery Health Care Provider in 7 to 14 days or as directed. ??? Primary Care Provider in 2-5 weeks or as directed. ??? Primary Crew Mess Attendant in 2-5 weeks or as directed. ??? Cardiac Rehabilitation: Arrangements for cardiac rehabilitation enrollment will be made during your 1???2-week follow-up appointment with your cardiac surgery health care provider if an appointment was not made for you prior to discharge. If you have any questions, please call the Cardiac Surgery office at [phone]. ? Bathing: ??? Shower daily with a gentle soap allowing shower water to rinse soap off. ??? Gently pat incisions dry with a clean towel. ??? You may need assistance with showering the first few days. ??? If youare unsteady on your feet use a shower chair. ??? Do not take a tub bath until all scabs have healed on all incisions. ??? Do not use creams, lotions, or ointments on your incisions. ??? Wear clean clothing every day. ??? Avoid holding pets and children close to your bare chest. ??? Women: Wear a clean bra daily that you can put on without reaching your arms behind your back. ?? Incision Care: It is normal to see bruising and areas of hardness in your leg incisions (a camera was used to remove the vein there); you can elevate the leg, wear the compression stockings given to you or CASTILLO bandages to help reduce swelling. ? ? Look at your incision sites (chest wall, legs, arms & groins) every day until they are completely healed. ??? Check your incisions daily for drainage, redness, increased tenderness, or edges pulling apart. ??? Keep your incisions clean and dry. ?? Activity ??? Imagine there is a tube around your upper body. You can lift, push, and raise your arms if you remain in the tube. ??? Move arms freely if not holding items. ??? Use both arms, keeping them closeto the body with elbows in when lifting pushing, pulling, getting out of bed, or standing from a chair. ??? Stop an activity if you experience discomfort or hear a clicking/popping sound. ??? When reaching behind with one arm for self-care such as toileting rotate from the waist keeping elbows close to the body. ??? Hug your chest with a clean pillow when coughing, laughing, or sneezing. ??? Gradually increase your activity. This will promote wound healing. Remember to alternate periods of activity with periods of rest. ??? It is important to continue to do the coughing and deep breathing exercises to help prevent breathing complications. ??? Use incentive spirometer 8 to 10 times hourly while awake for the first two weeks you are home. ??? Take your temperature every day. ??? Weigh yourself at the same time every morning. ??? Wear elastic stockings for four weeks after you return home.??? Put elastic stocking on in the morning and remove them at bedtime. ??? Female patients should wear a soft supportive bra without under wires to prevent breast from pulling on incision. ?? Driving ??? Do not drive for at least 3 weeks after surgery or until your surgeon approves driving during the postoperative visit. ??? Once approved to drive, start with short distances, and have a passengerwith you. ??? Do not drive if you are still taking any prescribed medication for pain or a muscle relaxer. ??? ALWAYS wear a seatbelt as a compactor driver and a passenger. ??? DO NOT disable airbags. ??? Position the passenger seat as far back as possible.?Diet ??? Use healthy cooking methods: Bake, Boil, Steam, Broil. ??? Eat mostly plant- based diet; fruits and vegetables, whole grains and legumes (beans, peas and lentils). Include nuts and seeds in moderation. ??? Choose lean meats: skinless chicken/turkey breast, red meats with minimal marbling, greater than 90% lean ground meats. ??? Enjoy fish and seafood prepared healthfully twice a week or more. ??? Choose low fat dairy products. ??? Enjoy sweets in moderation. ??? Reduce sodium and salt intake: Avoid adding salt and choose products with less than 140 mg sodium per serving. Use herbs and spices to flavor your food. Daily sodium intake should be less than 3000mg. ??? Avoid processed foods, fried foods and foods that contain trans-fat. ??? Daily protein intake goal is 80-110 grams. ?? Smoking If you have a history of smoking , it is advised that you quit. smoking is a major risk factor for coronary artery disease and heart attack. Smoking cessation is essential for recovery and long-term health . ?? We can offer smoking cessation resources, including nicotine replacement therapy, medication therapy, and referral to behavioral counseling or support groups. ?? Lowering your cholesterol Diet and exercise may not lower your cholesterol enough. Cholesterol medicines may help prevent further cholesterol build up in the arteries. Talk to your healthcare provider about taking medicine for high cholesterol. ? High blood pressure and diabetes ?? If you have high blood pressure or diabetes, continue with your prescribed treatments. These healthproblems, if not controlled can put you at risk for having a heart attack, stroke, or other vascular events. ?? Stress Learn to manage stress with ways that fit your needs. Some stress relieving activities include meditation, deep breathing techniques and exercise. Stress that isn???t managed can prolong healing and cause other health problems. Talk to your healthcare provider if you need additional resources to manage stress. ?? Feelings?? You may also be impatient to return to your regular activities and may feel frustrated with your recovery. Remember that your body needs time to heal. In fact, healing takes energy and depletes your strength. You will have good days and bad days, and you may feel depressed and angry about how long your recovery seems to take. Talk to your family or friends about your feelings and try to remember that you will get better. As you get stronger and more rested, you will feel more positive about your progress. One way to avoid feeling depressed is to maintain as normal a routine as possible. Get up at your usual time and bathe or shower. Get dressed; don???t stay in your nightclothes all day. Take a rest in the morning and afternoon, and when you feel tired. Get a good night???s sleep. If yourdepression doesn???t improve, talk to your doctor. Feelings ?? Valve Surgery Instructions ?? You will receive a booklet and card specific to the valve you received. This card should be always carried with you. Your doctor may prescribe an anticoagulant medication to prevent blood clots that could lead to a stroke. Your doctor may prescribe an antibiotic.?? This helps prevent infection that could scar and destroy your heart valve. Your will be instructed when to take this medication, suchas before dental work, surgery, or medical procedures. ?? Please refer to the Understanding & Preparing for Heart Surgery booklet. ?? If you are being discharged on Coumadin ??/warfarin, please refer to the H&V Anticoagulation Patient Education booklet. ?? Discharge Instruction Video ? * Daphney Del Angel RN: PERFORM Event Display: Patient Education Leaflets Authored Date: [id number] Cardiac Rehabilitation ?? 49250 Cardiac Rehabilitation Cardiac rehabilitation (cardiac rehab) is a professionally supervised program designed by your healthcare team. It'll help you recover from your heart problem and??reduce your risk of future heart problems. You may be helped by cardiac rehab if you have certain heart conditions or certain heart procedures. These include: ??? Stable angina ??? Heart attack ??? Stable heart failure ??? Coronary artery bypass surgery ??? Heart valve surgery ??? Angioplasty with or without a stent ??? Heart-lung transplant Along with a tailored exercise program, cardiac rehab provides education and counseling to improve health. The cardiac rehab program includes: ??? An assessment of your health ??? Managing your risk factors such as high cholesterol, high blood pressure, and diabetes ??? Education on diet and medicines ??? Exercise training ??? Losing weight??? Quitting smoking ??? Emotional aspects such as stress, anxiety, or depression It's important to talk with your healthcare provider about the health benefits of enrolling in a cardiac rehab program. Your rehab program Your cardiac rehab program may start while you???re still in the hospital. After you leave the hospital, you may go to a facility for rehab classes. You???ll regain some strength and learn how to exercise safely. Once you do that, your healthcare provider may prescribe an exercise program for you to do at a gym or at home. ?? As an inpatient You may start light exercise within 2 days of entering the hospital once you have the healthcare provider's approval. Your activity may be limited based on the procedure you had, such as bypass surgery, valve replacement, coronary angioplasty, or coronary stenting. ?? As an outpatient As early as 1 to 2 weeks after leaving the hospital, you can join a supervised rehab program. Ask for a referral from your healthcare provider. Before leaving the hospital, your provider can provide contact and enrollment information. See if your healthcare team can get an appointment set up beforeyou're discharged home. ??? Exercises will be prescribed to help you build strength and movement. The first month will mostlikely include easier exercises. Over time, you???ll exercise harder to improve your endurance. ???Your heart, oxygen saturation,??and blood pressure may be watched as you work. ??? Cardiac rehab programs are tailored to meet your needs. Some people may take part in the program for 6 weeks, while others will do it for 6 months or longer. ??? Some people may not have access to a facility-based cardiac rehab. Home-based cardiac rehab is considered in some cases for some people. Virtual programs may also be available. Ask your healthcare provider if these are an option for you. ?? Maintain the benefits to your health Don???t stop once you???ve finished your program! Make what you learned in rehab a regular part of your life. Here are some tips: ??? Work out at home or at a gym. Try watching a new workout video each week. Take an exercise class. Find something that keeps you interested. ??? Ask family and friends to help you stay motivated. The healthy lifestyle changes can benefit them as well by partnering up and working out together. ??? Make other lifestyle changes to improve your heart and overall health. Quit smoking. Make changes to lower your stress. Lose excess weight. And lower your blood pressure and cholesterol. ??? It's important to keep an open conversation with your healthcare provider about your progress and goals. ?? Last Reviewed Date: 2023 ?? 5425-2589 [employer]. All rights reserved. This information is not intended as a substitute for professional medical care. Always follow your healthcare professional's instructions. ?? * Rae Barrett RN: PERFORM, SIGN, VERIFY Event Display: Cardiac Rehab Note Authored Date: [id number] Patient: KEYSHAWN GRAVES Age: 68 years Sex: Male : 1955 Associated Diagnoses: None Author: Rae Barrett RN Diagnosis Cardiac Rehab Diagnosis: CABGx3 . Pre-exercise Vitals Vital Signs Comment: Reviewed in [facility]. Pre-exercise Physical Examination Neurologic: alert & oriented, oriented to (time, person, place). Activity Transfers: with assist, assist x 1 . Ambulate: with assist, assist x 1 , assistive device, distance ambulated 15 feet. Activity comment: pt has flight of stairs at home, ambulated with pt and unit staff from to recliner chair. pt ambulated with steady gait with walker. . Assistive Devices Assistive Device: Walker. Incentive Spirometry Incentive Spirometry: Good technique - effort. Patient Education Education: Patient alone, move in the tube . Education topic Teachback comprehension 75% Topic: Pathophysiology, Role of exercise, Home activity guidelines/limits, Post operative recovery guidelines, IS Use . Reinforcement needed: Role of exercise, Home activity guidelines/limits, Post operative recovery guidelines. Recommendation and Plan Outpatient follow up recommended: [facility], in 4 weeks. Cardiac Rehab: Daily, Will see on 01/04/2024 . Recommendation comment: RN notified of plan. * Event Display: Hemodynamic Procedure Report Authored Date: * Event Display: Hemodynamic Procedure Report Authored Date: * Event Display: Lab Data & Pts Medical History Authored Date: History and physical note * Event Display: History and Physical Hospital Authored Date: * Event Display: History and Physical Hospital Authored Date: * Event Display: History and Physical Hospital Authored Date: Admission evaluation note * Palma Naylor MD: PERFORM Event Display: Admission Note Authored Date: Patient: ??KEYSHAWN GRAVES ? Age:??68 Years?Sex:??Male?:??1955?? Chief Complaint/Reason for Consultation Presented for Diagnostic Cardiac Cath History of Present Illness 68-year-old male with pertinent history of former tobacco use disorder, prediabetes, hyperlipidemiapresented for outpatient diagnostic cardiac cath today by Dr Maya. ?? Patient was recently seen by cardiology for symptoms of exertional chest discomfort, dyspnea. Patient has been making aggressive lifestyle modification as he had high cholesterol send alert ago.?? He is even joined a gym and while walking the treadmill and reading heart rate about 130 startedto notice discomfort of his chest along with dyspnea.?? The symptoms progressively got worse even with his usual day-to-day activities like mowing the lawn.?? He was referred for a stress test which was abnormal with marked ST depression of 3 mm with exercise with high Ross treadmill risk score.?? He subsequently had echocardiogram which showed preserved EF but did show wall motion abnormality inthe inferior, inferior lateral wall consistent with underlying coronary artery disease and hibernating myocardium.?? Since then he was started on aspirin and metoprolol and has been taking atorvastatin as well.?? He has not been exercising since then.?? He has no symptoms at rest and does not report any recurrent symptoms. As he had crescendo pattern with very abnormal stress test with resting wall motion abnormality on echo which was suggestive of hibernating myocardium with likelihood of coronary artery disease possibility of multivessel including left main he was referred for an outpatient cardiac cath on 12/29/2023. ?? 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 Richar Lynn MD Social history significant for former tobacco use disorder, occasional alcohol use. Patients lives with a friend and does have family in the area. ?? Hospital course so far Vitals hemodynamically stable.?? EKG done this a.m. shows normal sinus with ST and T wave abnormalities concerning for anterolateral ischemia with ST depressions on anterolateral leads and T wave inversions as well. Diagnostic cardiac catheter 12/29/2023 underwent left heart cath.?? Elevated LVEDP of 20.?? Right dominant circulation.?? Mid RCA 95% stenosis.?? PDA approximately 95% stenosed with [id number]-mr-[id number] collaterals.?? Distal left main 90% stenosis.?? Minimal disease in LAD and left circumflex.?? As he hadsevere left main and RCA stenosis he is being referred for coronary artery bypass surgery.?? Recommend RIOS to LAD, graft to OM PLV and PDA.?? Postcardiac cath EKG showed normal sinus rhythm.?? CT chest without contrast done on 12/28-mild atherosclerotic calcification of the aortic arch, though no thoracic aortic aneurysm. Patient has been chest pain free. Review of Systems ?? All other systems were reviewed and are negative except for the ones mentioned above. Objective Measurements?? Height: 174 cm (12/29/23) Weight: 81.3 kg (12/29/23) Dry Weight: 81.3 kg (12/29/23) Body Mass Index:??26.85 kg/m2??High (12/29/23) ? Vital Signs?? Temperature: 97.7 DegF (12/29/23 13:52:00) Temperature Route: Oral (12/29/23 13:52:00) Pulse Rate: 78 bpm (12/29/23 13:52:00) Heart Rate Monitored: 74 bpm (12/29/23 13:30:00) Respiratory Rate: 18 br/min (12/29/23 13:52:00) Systolic Blood Pressure: 126 mm Hg (12/29/23 13:52:00) Diastolic Blood Pressure: 61 mm Hg (12/29/23 13:52:00) Blood pressure sites: Arm, left (12/29/23 13:52:00) Mean Arterial Pressure: 83 mm Hg (12/29/23 13:52:00) Pulse Pressure: 65 mm Hg (12/29/23 13:52:00) Oxygen Saturation: 97 % (12/29/23 13:52:00) Mode of Delivery (Oxygen): Room air (12/29/23 13:52:00) Early Warning Score: 2 (12/29/23 14:08:12) ? Perfusion Assessment AV fistula: No (12/29/23 09:00:00) Capillary Refill: < 3 seconds (12/29/23 09:00:00) Cardiac Rhythm: Normal sinus rhythm (12/29/23 14:01:00) Cardiovascular: WNL except (12/29/23 14:01:00) Cardiovascular Assessment Status: Unchanged from recorder's assessment (12/29/23 09:00:00) Cardiovascular Comment: no chest pain or pressure (12/29/23 09:00:00) Cardiovascular Symptoms: None (12/29/23 14:01:00) Clubbing Present: No (12/29/23 09:00:00) Dorsalis Pedis Pulse, Left: Normal (12/29/23 14:01:00) Dorsalis Pedis Pulse, Right: Normal (12/29/23 14:01:00) Heart Rhythm: Regular (12/29/23 14:01:00) Heart Sounds: S1, S2 (12/29/23 14:01:00) Nail Bed Color, Fingers: Quentin (11/12/24 14:01:00) Nail Bed Color, Toes: Quentin (12/29/23 14:01:00) Pacemaker: No (12/29/23 09:00:00) Radial Pulse, Left: Normal (12/29/23 14:01:00) Radial Pulse, Right: Normal (12/29/23 14:01:00) Skin Temperature Lower Extremities: Warm, Dry (12/29/23 14:01:00) Skin Temperature Upper Extremities: Warm, Dry (12/29/23 14:01:00) Transradial Band: Removed (12/29/23 13:15:00) Transradial Band Site: Radial, right (12/29/23 09:45:00) ? Ventilator Settings?? No qualifying data available. ?? Intake/Output? 12/28 09:11 12/28 07:00 12/27 07:00 12/26 07:00 12/25 07:00 ?? 12/28 14:30 12/28 14:30 12/28 06:59 12/27 06:59 12/26 06:59 Intake ?300 ?300 ?0 ?0 ?0 Output ?0 ?0 ?0 ?0 ?0 Net Total ?300 ?300 ?0 ?0 ?0 ? Urine Count ?2 ?2 ?0 ?0 ?0 ? Physical Exam General: No acute distress HEENT: EOMI. CV: Regular rate and rhythm. No murmurs, gallops, rubs Respiratory: All bray clear to auscultation bilaterally. No wheezes, rales, rhonchi GI: Soft, nontender. Bowel sounds noted : No suprapubic tenderness Extremities: No lower extremity edema. Right TR band present with no concerns.?? Neuro: AAO x3.??Moves all extremities spontaneously. Sensation intact Psych: Affect appropriate Skin: No lesions, wounds, rashes Assessment/Plan Diagnoses Stable angina pectoris ??(I20.89) 1. ??Multi-vessel coronary artery stenosis ??(I25.10) 2. ??Hyperlipidemia ??(E78.5) 3. ??Obesity ??(E66.9) 4. ??Pre-diabetes ??(R73.03) 5. ??Heart failure with preserved ejection fraction ??(I50.30) ?? Assessment:??This is a 68 year old male??with pertinent history of former tobacco use disorder, prediabetes, hyperlipidemia, ischemic cardiomyopathy??was undergoing??outpatient evaluation for??exertional chest pain and dyspnea whoch was progressively getting worse since earlier this year with??outpatient abnormal stress test and echocardiogram concerning for coronary artery disease underwent??diagnostic cardiac cath??by Dr Maya on 12/28 concerning for multivessel coronary artery disease currently chest pain free and hemodynamically stable is being admitted for evaluation for CABG.? Stable angina pectoris (I20.89):?Multi-vessel coronary artery stenosis (I25.10):?? Hyperlipidemia (E78.5):?? Obesity (E66.9):?Pre-diabetes (R73.03):?? Heart failure with preserved ejection fraction (I50.30):?? 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 Richar Lynn MD Ongoing??exertional chest pain and dyspnea since October 2023. Underwent outpatient stress test abnormal with marked ST depression of 3 mm with exercise with high Ross treadmill risk score.?? He subsequently had echocardiogram which showed preserved EF but did show wall motion abnormality in the inferior, inferior lateral wall consistent with underlying coronary artery disease and hibernating myocardium.?? Cardiac Cath 12/28- Elevated LVEDP of 20.?? Right dominant circulation.?? Mid RCA 95% stenosis.?? PDA approximately 95% stenosed with awck-li-yrxgi collaterals.?? Distal left main 90% stenosis.?? Minimal disease in LAD and left circumflex.?? As he had severe left main and RCA stenosis he is being referred for coronary artery bypass surgery.?? Recommend RIOS to LAD, graft to OM PLV and PDA.?? Postcardiac cath EKG showed normal sinus rhythm.?? CT chest without contrast done on 12/28-mild atherosclerotic calcification of the aortic arch, though no thoracic aortic aneurysm. ??carotid Duplex 12/28- 1-49% tenosis of bilateral carotids Patient is currently chest pain free with no other issues. Due to high LVEDP, recieved a dose of lasix 20mg IV Plan: -Continue aspirin, atorvastatin -Start heparin gtt without bolus at 2PM today -Cardiac Surgery following- Dr Fontenot planned for CABG -Continue Metoprolol? Quality Metrics VTE Prophylaxis:??Heparin gtt ?VTE Prophylaxis Assessment:??Excluded from VTE prophylaxis measure ??Discharge Planning:??Pending CABG evaluation?Ongoing Medical Necessity:??CABG?Code Status:??FULL CODE, reviewed with patient?Order Code Status:??Code Status Ordered ??Med Rec: done with??patient? Updated patient, all question answered in detail 12/28. Patient??is thinking about who his HCP should be. Kindly confirm.? Plan and care discussed with attending physician Dr Montiel ?? Palma Ray PGY-3 Internal Medicine Resident ? Histories Allergies Allergies ?(Active and Proposed Allergies Only) Pollen? (Severity: Unknown severity, Onset: Unknown) ?Reactions: runny nose, sneezing Dust? (Severity: Unknown severity, Onset: Unknown) ?Reactions: runny nose, sneezing shellfish? (Severity: Unknown severity, Onset: Unknown) ?Reactions: nausea vomiting ? Past Medical History/Problem List Active Problems(5) Heart failure with preserved ejection fraction Hyperlipidemia Multi-vessel coronary artery stenosis Obesity Pre-diabetes ? Past Surgical History No surgery history documented. ? Social History Alcohol Details:??Use: Current. ??Frequency: Daily. ??Type: Beer. Tobacco Details:??Use: Former smoker, quit more than 30 days ago. ? Family History No Family History documented. ? Medications Home Medications Aspirin (Aspirin Low Dose 81 mg oral delayed release tablet)?1?tab(s)?81?Milligram?By Mouth?Daily?TAKE 1 TABLET BY MOUTH EVERY DAY Atorvastatin (atorvastatin 20 mg oral tablet)?1?tab(s)?20?Milligram?By Mouth?Daily?TAKE 1 TABLET BY MOUTH EVERY EVENING Docusate (Colace sodium 100 mg oral capsule)?100?Milligram?1?capsule?By Mouth?2 times a day?as needed?for constipation Famotidine (famotidine 20 mg oral tablet)?TAKE 1 TABLET ORALLY 2 TIMES A DAY FOR START 1 DAY BEFORE CARDIAC CATHETERIZATION Metoprolol (Metoprolol Succinate ER 25 mg oral tablet, extended release)?25?Milligram?1?tablet?By Mouth?Daily ? Inpatient Medications Medications (17) Active SCHEDULED: (7) Aspirin 81 mg EC Tablet (Aspirin Tablet) ??81 mg, By Mouth, Daily Atorvastatin 80 mg Tablet (atorvastatin 80 mg oral tablet) ??80 mg, By Mouth, Daily at bedtime Famotidine 20 mg Tablet (famotidine 20 mg oral tablet) ??20 mg, By Mouth, Daily Fluzone Trivalent High Dose (>65yr) Inj 0.5 mL (Influenza, Trivalent High Dose Vaccine (Fluzone High Dose)) ??0.5 mL, Intramuscular, Once Metoprolol 50 mg XL Tablet (Toprol XL 50 mg oral tablet, extended release) ??50 mg, By Mouth, Dailyin AM NaCl 0.9% Flush 3ml (NaCL 0.9% Flush) ??3 mL, IV Push, Every 8 hours NaCl 0.9% Flush 3ml (NaCL 0.9% Flush) ??3 mL, IV Push, Every 8 hours CONTINUOUS: (2) Heparin 25,000 units / 250 mL D5W premix 25,000 units [9 units/kg/hr] + D5%W Premixed IV 250 mL (Heparin 25,000 units in 250 mL Premix 25,000 units [9 units/kg/hr] + D5%W Premixed IV 250 mL) ??250 mL, IV Infusion, 9.3 mL/hr NaCL 0.9% (1000 mL) Cont IV 1000 mL (NaCL 0.9% 1000 mL) ??1,000 mL, IV Infusion, 150 mL/hr PRN: (8) Acetaminophen 325 mg Tablet (Acetaminophen Tablet) ??650 mg, By Mouth, Every 4 hours Heparin 5000 units/mL Inj (1 mL) (Heparin Inj) ??6,198 units 1.24 mL, IV Push, Every 6 hours Heparin 5000 units/mL Inj (1 mL) (Heparin Inj) ??3,099 units 0.62 mL, IV Push, Every 6 hours Melatonin 3 mg Tablet (Melatonin Tablet) ??3 mg, By Mouth, Daily at bedtime NaCl 0.9% Flush 3ml (NaCL 0.9% Flush) ??3 mL, IV Push, Every 8 hours NaCl 0.9% Flush 3ml (NaCL 0.9% Flush) ??3 mL, IV Push, Every 8 hours Polyethylene Glycol 17 Gm Powder (MiraLax Powder) ??17 Gm 1 pack/packet, By Mouth, Daily Senna Tablet ??8.6 mg 1 tablet, By Mouth, 2 times a day ? IV Titrations (Last 24 hrs) Most Recent Infusions (Max of 3)? 12/28 12:58 ? Heparin 25,000 units in 250 mL Premix 25,000 units [9 units/kg/hr] + D5%W Premixed IV 250 mL 9.0029 units/kg/hr ? Results Recent Labs No labs resulted between 12/28/2023 00:00 and 12/29/2023 14:30? Procedure ?Diagnostic Cardiac Cath??12/29/2023 08:47 by Jose G Maya MD ?Hemodynamics: Normal systemic pressures. Elevated LVEDP 20 mmHg. There is no significant gradient across aortic valve pullback. Coronary anatomy: Right dominant circulation. Mid RCA 95%stenosis. PDA proximally 95% stenosed with [id number] collaterals. Distal left main 90% stenosis. Minimal disease in LAD and left circumflex. Patient is presenting for abnormal exercise stress test. He has been experiencing exertional symptoms for over a year. Resting echocardiography has shown inferior wall motion abnormality. He has severe left main and RCA stenosis. We are referring him forcoronary artery bypass surgery. Diagnostic Recommendations Continue aspirin 81 mg/day indefinitely.Aggressive secondary risk factor modification according to ATP III guidelines. Recommend RIOS to LAD, graft to OM PLV and PDA. We will upload the echo from [facility]. ?? Image ?CT Chest W/O Contrast??12/29/2023 10:37 by Naomi Gallagher ?Mild atherosclerotic calcification of the aortic arch, though no thoracic aortic aneurysm. ?VL Carotid Duplex Bilat Scan??12/29/2023 10:03 by Ramón Mobley MD ?Summary: Right Side: Mild atherosclerosis that is not hemodynamically significant at 1-49% stenosis in the Internal Carotid Artery. Antegrade flow in the Vertebral Artery. Multiphasic flow is seen in the Subclavian Artery. Left Side: Mild atherosclerosis that is not hemodynamically significant at 1-49% stenosis in the Internal Carotid Artery. Antegrade flow in the Vertebral Artery. Multiphasic flow is seen in the Subclavian Artery. No prior study is available for comparison. ?? Consult ?cardiac surgery consultation??12/29/2023 12:52 by Corie DEMARCO, [facility] ?The patient is a??68??year old male who??presented??with??stable angina??found??todayon cardiac catheterization??to have multivessel coronary disease, currently chest pain free and hemodynamically stable and now is being evaluated for CABG. I reviewed in detail his cardiac catheterization; he will likely benefit from??three-four??vessel CABG, namely RIOS-LAD, L radial OM, SVG- PDA (possible PLV). I discussed with the patient the high risk nature of coronary artery surgical revascularization and answered all his questions today. At this time, the preoperative evaluation necessaryincludes transthoracic echocardiogram??(obtain images from [facility], if not available then repeat her e),??CT chest w/o contrast,??screening carotid duplex.??Please obtain Hgb A1C laboratory value. I quoted him an overall risk of mortality between??1-2% based on his comorbidities, which I believe maybe an underestimate due to his frailty.??We discussed the nonfatal complications of surgical interve ntion??including myocardial infarction, stroke, infections, bleeding, multi- system organ failure, and prolonged ventilator dependence. We discussed the need for transfusions and its inherent risks.??I will discuss his case with my partners and Dr. Maya to determine best management options, beingadmitted and planning for surgical revascularization this week after his preoperative evaluation iscomplete. ?? * Dinesh DEMARCO, Yg Goodson: PERFORM Event Display: Admission Note Authored Date: Attending Attestation: I have seen and evaluated this patient.?? I have discussed the case and its management with the resident and agree with the findings and plan as documented in the resident???s note. ?? Patient presented for diagnostic cardiac catheterisation in the setting of exertional chest pain and positive outpatient stress test cath demonstrated severe LMS and RCA stenosis Now referred for CABG Elevated EDP and concern for mild acute diastolic CHF (cardiology gave IV furosemide) No chest pain at present Cardiology recommending heparin infusion EKG study * Event Display: EKG Authored Date: * Event Display: ECG 12-Lead Authored Date: Please click on pdf link to open report * Event Display: ECG 12-Lead Authored Date: Ventricular Rate: 79 BPM Atrial Rate: 79 BPM P-R Interval: 106 ms QRS Duration: 86 ms Q-T Interval: 382 ms QTC Calculation(Bazett): 438 ms P [place]: 47 degrees R [place]: 10 degrees T [place]: -14 degrees Sinus rhythm with short TN Inferior, anterior, and lateral ST elevation: consider early repolarization, pericarditis Inferior infarct (cited on or before 31-DEC-2023) Abnormal ECG When compared with ECG of 31-DEC-2023 15:14, TN interval has decreased ST more elevated in Lateral leads Confirmed by Foster Rogers ([id number]) on 01/01/2024 2:53:08 PM Marion: Foster Rogers * Event Display: ECG 12-Lead Authored Date: Please click on pdf link to open report * Event Display: ECG 12-Lead Authored Date: Ventricular Rate: 76 BPM Atrial Rate: 76 BPM P-R Interval: 146 ms QRS Duration: 88 ms Q-T Interval: 422 ms QTC Calculation(Bazett): 474 ms P [place]: 66 degrees R [place]: 24 degrees T [place]: -17 degrees Normal sinus rhythm Possible Inferior infarct , age undetermined Abnormal ECG When compared with ECG of 30-DEC-2023 21:11, T wave amplitude has decreased in Lateral leads Confirmed by Foster Rogers ([id number]) on 12/31/2023 3:17:17 PM [place]: Foster Rogers * Event Display: ECG 12-Lead Authored Date: Please click on pdf link to open report * Event Display: ECG 12-Lead Authored Date: Ventricular Rate: 73 BPM Atrial Rate: 73 BPM P-R Interval: 138 ms QRS Duration: 90 ms Q-T Interval: 404 ms QTC Calculation(Bazett): 445 ms P [place]: 67 degrees R [place]: 38 degrees T [place]: 11 degrees Normal sinus rhythm Possible Left atrial enlargement Borderline ECG When compared with ECG of 29-DEC-2023 09:35, No significant change was found Confirmed by VAMSI CORBIN MD ([id number]) on 12/31/2023 2:57:09 PM [place]: VAMSI CORBIN MD US.doppler Carotid arteries - bilateral * Event Display: VL Carotid Duplex Scan Bilat Authored Date: Demographics Procedure Information Patient name: ELY MAHAJAN Procedure date: 12/29/2023 10:03 AM Corporate Proc. sub type: Cerebral: Carotid, Carotid Duplex Scan Bilateral. Gender: Male Accession No: [id number] Date of : 1955 Account No: [id number] Age: 68 year(s) Patient status: NATHAN Admit Status: Inpatient Procedure Staff Probe: L 2-9 Attending Physician: Jose G Maya MD Technical quality: Adequate visualization Ordering physician: Jose G Maya MD Facility: [facility] Referring Physician: Jose G Maya MD Study location: [facility] [place] V[facility] Lab Brim Stretcher: Donnie Vega Interpreting physician: Leandra Martinez Procedure consent obtained: No Indications Pre-Op Evaluation and Coronary Atherosclerosis. Carotid Procedure Findings Right Left Location PSV (cm/s) EDV (cm/s) Plaque Characteristics PSV (cm/s) EDV (cm/s) Plaque Characteristics Prox CCA 84.1 8.9 112.3 12.5 Heterogeneous Dist CCA 78.9 12.8 Heterogeneous 96 18 Bulb 58.2 10.2 Heterogeneous 76 8.9 Heterogeneous Prox ICA 85.4 16.7 Heterogeneous 123.2 8.9 Heterogeneous Mid ICA 67.2 12.8 57.9 12.5 Dist ICA 68 20.4 74.2 16.1 Prox ECA 95.7 0 106.9 0 Vertebral 52.6 11.4 55.9 10.9 Prox Subclavian 190.6 0 190.6 0 Right ICA/CCA ratio: 1.08 Right verterbral flow: Antegrade Left ICA/CCA ratio: 1.28 Left verterbralflow: Antegr Carotid Plaque Details Left ICA/CCA ratio: 1.28 Left verterbral flow: Antegrade Right ICA/CCA ratio: 1.08 Right verterbral flow: Antegrade Physician Conclusions Summary: Right Side: Mild atherosclerosis that is not hemodynamically significant at 1-49% stenosis in the Internal Carotid Artery. Antegrade flow in the Vertebral Artery. Multiphasic flow is seen in the Subclavian Artery. Left Side: Mild atherosclerosis that is not hemodynamically significant at 1-49% stenosis in the Internal Carotid Artery. Antegrade flow in the Vertebral Artery. Multiphasic flow is seen in the Subclavian Artery. No prior study is available for comparison. * Event Display: VL Carotid Duplex Scan Bilat Authored Date: Cardiology * Event Display: Cardiac Rhythm Strips Authored Date: * Event Display: Cardiac Rhythm Strips Authored Date: Hospital Progress note * Naima Nuñez RN: PERFORM, SIGN, VERIFY Event Display: Progress Note Hospital Authored Date: Patient: KEYSHAWN GRAVES Age: 68 years Sex: Male : 1955 Associated Diagnoses: None Author: Naima Nuñez RN Findings Problem Related to Alteration in Cardiac Function (new) : Alteration in Cardiac Function/new 01/03/2024 21:00 EST Alteration in Cardiac Status Related to Cardiac Surgery Goals & Outcomes, Cardiac Status Pt will resume/maintain adequate cardiac output, Pt will resume/maintain adequate hemodynamic status, Pt will resume/maintain adequate respiratory function, Pt will resume/maintain intact neuro function, Pt will maintain adequate GI/ function appropriate for pt, Pt will maintain adequate nutrition status, Pt/caregiver will state understanding of diagnosis, Pt/caregiver will state strategies to reduce risk factors Cardiac Interventions Implemented Assess/monitor cardiac status, Assess/monitor neuro status, Assess/monitor respiratory status, Assess for tolerance of IV infusions; verify rate & dose, Call/Report variances in ECG to provider, Document & Monitor O2 Sats; Administer O2 as ordered BH Goals/Interventions, Cardiac Yes Cardiac, Problem Start 12/29/2023 18:35 Reviewed Plan with, Cardiac Status Patient Patient Progression, Cardiac Status Patient progressing according to plan . Nursing Data Vital Signs : VITAL SIGNS SECTION 01/04/2024 4:05 EST Temperature 98.3 DegF Temperature Route Oral Pulse Rate 77 bpm Respiratory Rate 16 br/min Systolic Blood Pressure 105 mm Hg Diastolic Blood Pressure 51 mm Hg L Blood pressure sites Arm, left Mean Arterial Pressure 69 mm Hg Pulse Pressure 54 mm Hg Oxygen Saturation 96 % Mode of Delivery (Oxygen) Room air 01/04/2024 0:30 EST Temperature 98.3 DegF Temperature Route Oral Pulse Rate 77 bpm Respiratory Rate 18 br/min Systolic Blood Pressure 103 mm Hg Diastolic Blood Pressure 45 mm Hg L Blood pressure sites Arm, right Mean Arterial Pressure 64 mm Hg Pulse Pressure 58 mm Hg Oxygen Saturation 97 % Mode of Delivery (Oxygen) Room air . Evaluation Pt A&O x4. NSR on tele, no complaints of chest pain, SOB, or dizziness. Pt ambulates to the BR w/walker and 1 assist. No complaints of pain. RA, VSS. Pt is constipated, wants to wait till the am to take bowel medications. Pt safety is maintained. See Biophysical and CIS for further assessments.. Discharge Information Pulmonary Rehab Discharge : Pulmonary Rehab Discharge Status 12/31/2023 20:31 EST CPAP/BiPAP Mask Size Medium 12/31/2023 17:25 EST CPAP/BiPAP Mask Size Medium 12/31/2023 15:14 EST PEEP 5 * Eve Yancey: PERFORM, MODIFY Event Display: Progress Note Hospital Authored Date: Patient: ??KEYSHAWN GRAVES ? Age:??68 Years?Sex:??Male?:??1955?? Subjective POD3 s/p??CABG x3 ?? - No acute??events - Started on amiodarone infusion yesterday for Afib with RVR, now in sinus rhythm - Diuresing on Lasix 20mg IV twice daily, as he remains 6kg above his pre-op dry weight, creatinine0.8 - Epicardial wires removed ?? Review of Systems ROS negative. ?? Allergies Allergies ?(Active and Proposed Allergies Only) Pollen? (Severity: Unknown severity, Onset: Unknown) ?Reactions: runny nose, sneezing Dust? (Severity: Unknown severity, Onset: Unknown) ?Reactions: runny nose, sneezing shellfish? (Severity: Unknown severity, Onset: Unknown) ?Reactions: nausea vomiting ?? Past Medical History Active Problems(5) Heart failure with preserved ejection fraction Hyperlipidemia Multi-vessel coronary artery stenosis Obesity Pre-diabetes ?? Past Surgical History No surgery history documented. ?? Social History Alcohol Details:??Use: Current. ??Frequency: Daily. ??Type: Beer. Tobacco Details:??Use: Former smoker, quit more than 30 days ago. ?? Objective Measurements?? Height: 171 cm (01/03/24) Weight: 87.3 kg (01/03/24) Dry Weight: 81 kg (12/31/23) Body Mass Index:??27.46 kg/m2??High (12/31/23) ?? Vital Signs?? Temperature: 98 DegF (01/03/24 11:33:00) Temperature Route: Oral (01/03/24 11:33:00) Pulse Rate: 74 bpm (01/03/24 11:33:00) Respiratory Rate: 18 br/min (01/03/24 11:33:00) Systolic Blood Pressure: 120 mm Hg (01/03/24 14:00:00) Diastolic Blood Pressure:??51 mm Hg??Low (01/03/24 14:00:00) Blood pressure sites: Arm, left (01/03/24 13:00:00) Mean Arterial Pressure: 70 mm Hg (01/03/24 11:33:00) Pulse Pressure: 55 mm Hg (01/03/24 11:33:00) Oxygen Saturation: 98 % (01/03/24 11:33:00) Mode of Delivery (Oxygen): Room air (01/03/24 11:33:00) Early Warning Score: 0 (01/03/24 14:52:17) ?? Pain Scores 1 - 10 Pain Scale Score: 5 (20:17) ?? Intake/Output ?? 12/28 09:11 01/02 07:00 01/01 07:00 12/31 07:00 12/30 07:00 ?? 01/02 15:08 01/02 15:08 01/02 06:59 01/01 06:59 12/31 06:59 Intake ?39684.2 ?240 ?787.5 ? 3310.6 ? 4403.4 Output ?20211 ?0 ? 1050 ? 4095 ? 2240 Net Total ? 27.2 ?240 ? -262.5 ? -784.4 ? 2163.4 ? Urine Count ?6 ?0 ?2 ?0 ?1 ?? Physical Exam Neurological: Alert, oriented, MANN, no focal deficit Pulmonary/Lungs: Breathing comfortably on room air, breath sounds diminished at bases bilaterally Cardiovascular: Regular rate/rhythm, no murmur/rub/gallop Gastrointestinal: Abdomen soft, nondistended, nontender with normoactive bowel sounds Genitourinary: Voiding clear, yellow urine Extremities: Warm, distal pulses present, 1+??peripheral edema Skin: Warm, dry, sternal incision covered with dressing, c/d/i _ Home Medications Aspirin (Aspirin Low Dose 81 mg oral delayed release tablet)?1?tab(s)?81?Milligram?By Mouth?Daily?TAKE 1 TABLET BY MOUTH EVERY DAY Atorvastatin (atorvastatin 20 mg oral tablet)?1?tab(s)?20?Milligram?By Mouth?Daily?TAKE 1 TABLET BY MOUTH EVERY EVENING Docusate (Colace sodium 100 mg oral capsule)?100?Milligram?1?capsule?By Mouth?2 times a day?as needed?for constipation Famotidine (famotidine 20 mg oral tablet)?TAKE 1 TABLET ORALLY 2 TIMES A DAY FOR START 1 DAY BEFORE CARDIAC CATHETERIZATION Metoprolol (Metoprolol Succinate ER 25 mg oral tablet, extended release)?25?Milligram?1?tablet?By Mouth?Daily ?? Inpatient Medications Medications (33) Active SCHEDULED: (20) Acetaminophen 325 mg Tablet (Acetaminophen Tablet) ??975 mg, By Mouth, Every 6 hours Amiodarone 200 mg Tablet (amiODARONE Tablet) ??400 mg, By Mouth, Every 12 hours Amiodarone 200 mg Tablet (amiODARONE Tablet) ??200 mg, By Mouth, Daily Aspirin 81 mg EC Tablet (Aspirin Tablet) ??81 mg, By Mouth, Daily Atorvastatin 80 mg Tablet (atorvastatin 80 mg oral tablet) ??80 mg, By Mouth, Daily at bedtime Docusate Sodium 100 mg Capsule (Docusate Sodium Capsule) ??200 mg 2 capsule, By Mouth, Daily Enoxaparin 40 mg Inj (Enoxaparin Inj) ??40 mg 0.4 mL, Subcutaneous Injection, Daily Furosemide Inj (Furosemide ??Inj) ??20 mg 2 mL, IV Push Slowly, 2 times a day before breakfast and dinne Insulin Glargine 100 units/mL Inj (Lantus Inj) ??14 units 0.14 mL, Subcutaneous Injection, Daily atbedtime Insulin Lispro 100 units/mL Inj (Insulin LISPRO Sliding Scale) ??2-12 units, Subcutaneous Injection, 3 times a day before meals Lactulose 20 Gm/30mL Syrup (Lactulose Syrup) ??20 Gm 30 mL, By Mouth, Daily Metoprolol 25mg Tablet (Lopressor) ??25 mg, By Mouth, 2 times a day NaCl 0.9% Flush 3ml (Flush NaCl 0.9%) ??3 mL, IV Push, Every 8 hours Oxymetazoline 0.05% Nasal [place] (Afrin Nasal) ??2 sprays, Nares, Both, 2 times a day Pantoprazole 40 mg EC Tablet (Pantoprazole Tablet) ??40 mg, By Mouth, Daily Polyethylene Glycol 17 Gm Powder (MiraLax Powder) ??17 Gm 1 pack/packet, By Mouth, Daily Pyridoxine 50 mg Tablet (Pyridoxine Tablet) ??50 mg, By Mouth, Daily Senna Tablet ??17.2 mg 2 tablet, By Mouth, Daily Thiamine 100 mg Tablet (Thiamine Tablet) ??100 mg, By Mouth, 2 times a day Vashe Wound Care Emollient/Cleanser (Vashe Topical Solution) ??475 mL, Topically, Every 12 hours CONTINUOUS: (1) Amiodarone 900 mg Cont IV 900 mg [0.5 mg/min] + D5%W (500mL) Cont IV 500 mL (amiODARONE Cont IV 900mg [0.5 mg/min] + D5%W Normalized 500 mL) ??500 mL, IV Infusion, 16.67 mL/hr PRN: (12) Amiodarone 150 mg Inj (amiODARONE 150 mg/100 mL D5%W) ??150 mg 3 mL, IVPB, Every 2 hours Baclofen 10 mg Tablet (baclofen 10 mg oral tablet) ??5 mg, By Mouth, 3 times a day Bisacodyl 10 mg Suppository (Bisacodyl Supp) ??10 mg 1 supp, Rectally, Daily Bisacodyl 5 mg EC Tablet (Bisacodyl Tablet) ??10 mg, By Mouth, Daily Dextrose Inj Syringe (Dextrose 50% Inj Syringe (25Gm)) ??12.5 Gm, IV Push Slowly, Every hour Melatonin 3 mg Tablet (Melatonin Tablet) ??3 mg, By Mouth, Daily at bedtime NaCl 0.9% Flush 3ml (Flush NaCl 0.9%) ??3 mL, IV Push, Every 8 hours Ondansetron 2mg/mL Inj (2mL Vial) (Ondansetron Inj) ??4 mg, IV Push, Every 6 hours OxyCODONE 5 mg IR Tablet (OxyCODONE IR Tablet) ??2.5 mg, By Mouth, Every 4 hours OxyCODONE 5 mg IR Tablet (OxyCODONE IR Tablet) ??5 mg, By Mouth, Every 4 hours Potassium Chloride 10mEq ER Tablet (Potassium Chloride Tablet) ??40 mEq, By Mouth, Daily Vashe Wound Care Emollient/Cleanser (Vashe Topical Solution) ??475 mL, Topically, Every 6 hours Results Recent Labs BLOOD COUNT & DIFF WBC 5.7 k/mm3 ()?? 01/03/2024 04:38 RBC 2.46 m/mm3 (Low)?? 01/03/2024 04:38 Hgb 7.9 Gm/dL (Low)?? 01/03/2024 04:38 Hct 23.2 % (Low)?? 01/03/2024 04:38 MCV 94.3 femtoliters (High)?? 01/03/2024 04:38 MCH 32.1 pg ()?? 01/03/2024 04:38 MCHC 34.1 Gm/dL ()?? 01/03/2024 04:38 Platelet Count 152 k/mm3 ()?? 01/03/2024 04:38 RDW-SD 41.2 femtoliters ()?? 01/03/2024 04:38 MPV 10.3 femtoliters ()?? 01/03/2024 04:38 Nucleated RBC (Automated) 0.0 #/100 WBC'S ()?? 01/03/2024 04:38 Abs. NRBC 0.0 k/mm3 ()?? 01/03/2024 04:38 ?? CHEM GENERAL Sodium 141 mmol/L ()?? 01/03/2024 04:38 Potassium 3.8 mmol/L ()?? 01/03/2024 04:38 Chloride 104 mmol/L ()?? 01/03/2024 04:38 Bicarbonate Level 27 mmol/L ()?? 01/03/2024 04:38 Anion Gap 10 ()?? 01/03/2024 04:38 Glucose, POC 121 mg/dL (High)?? 01/03/2024 12:12 BUN 12 mg/dL ()?? 01/03/2024 04:38 Creatinine-Blood 0.84 mg/dL ()?? 01/03/2024 04:38 Estimated GFR Creatinine 96 ML/MIN/1.73 M2 ()?? 01/03/2024 04:38 Magnesium 2.0 mg/dL ()?? 01/03/2024 04:38 ?? URINE OTHER Est Creatinine Clearance 80.68 mL/min ()?? 01/03/2024 05:50 Assessment/Plan 68-year-old male with PMHx significant for prediabetes, HLD, ex-smoker, prostate cancer post prostatectomy and daily alcohol use- 5 beer/day. Patient present for an elective cath as an ischemic workup for complaint of dyspnea and exertional chest pain and found to have severe MVD.??CTS was consulted for evaluation for surgical revascularization and now presents for CABG. ?? 12/31/23 S/p CABG x3 (RIOS to LAD, RA to OM, SVG to RPDA) LVEF 45% ?? CARDIAC SURGEON: Dr. Fontenot RANGE FEEDER: Dr. Lynn ?? Neurologic: Acute post-op pain Hx EtOH use - Multimodal pain regimen: Tylenol, Baclofen prn, Oxycodone prn - Out of bed to chair with nursing staff, encourage ambulation - Patient reports he feels signficiantly weaker than his baseline while walking; PT consulted for formal evaluation - CIWA scores ?? Cardiac: S/p CABG x3 Hx??HLD - Remains in normal sinus rhythm with HR 70-80s - Previously in Afib with RVR, amiodarone infusion completed this afternoon - Amiodarone 400mg twice daily x7 days followed by 200mg daily - Metoprolol increased to 25mg twice daily?? - Aspirin 80mg daily, atorvastatin 80mg nightly ?? Pulmonary: Hx former smoker - Breathing comfortably on room air maintaining SpO2 >92% - Encourage ambulation,??incentive spirometry, and coughing/deep breathing ?? Gastrointestinal: - Cardiac diet - PPI daily for GI prophylaxis - Bowel regimen, last BM prior to surgery ?? Renal/Genitourinary: - Baseline creatinine 0.8-0.9, creatinine stable at 0.8 today -??Diuresing on Lasix 20mg IV twice daily, as he remains 6kg above his pre-op dry weight - Voiding without issues - Trend renal function and??electrolytes daily ?? Hematologic: Acute post-op anemia - H&H 7.9/23.2 today - Likely related to surgery in addition to a dilutional component?? - No evidence of active bleeding - Trend daily CBC - Lovenox??SQ for DVT prophylaxis ?? Endocrine:?? Stress hyperglycemia Hx prediabetes - Patient reportedly carries diagnosis of prediabetes, no pre-op A1c obtained - Post-op A1c 4.9% -??BG??125-196 over the past 24??hours - Currently on Lantus 14U daily and lispro sliding scale ?? Infectious disease: - WBC 5.7k, he remains afebrile - Amy-operative antibiotics complete - Trend WBC daily and monitor fever curve ?? Disposition: Telemetry; anticipate discharge home tomorrow pending PT evaluation and improvement inhyperglycemia ?? Plan discussed with Dr. Jacome on morning rounds. * Stefano BARNETT, Tea: PERFORM, SIGN, VERIFY, SIGN, MODIFY Event Display: Progress Note Hospital Authored Date: Patient: KEYSHAWN GRAVES Age: 68 years Sex: Male : 1955 Associated Diagnoses: None Author: Stefano BARNETT, Tea Findings Problem Related to Alteration in Cardiac Function (new) : Alteration in Cardiac Function/new 01/02/2024 9:00 EST Alteration in Cardiac Status Related to Cardiac Surgery Goals & Outcomes, Cardiac Status Pt will resume/maintain adequate cardiac output, Pt will resume/maintain adequate hemodynamic status, Pt will resume/maintain adequate respiratory function, Pt will resume/maintain intact neuro function, Pt will maintain adequate GI/ function appropriate for pt, Pt will maintain adequate nutrition status, Pt/caregiver will state understanding of diagnosis, Pt/caregiver will state strategies to reduce risk factors Cardiac Interventions Implemented Assess/monitor cardiac status, Assess/monitor neuro status, Assess/monitor respiratory status, Assess for tolerance of IV infusions; verify rate & dose, Document& Monitor O2 Sats; Administer O2 as ordered, Monitor & document daily weight BH Goals/Interventions, Cardiac Yes Cardiac, Problem Start 12/29/2023 18:35 Reviewed Plan with, Cardiac Status Patient Patient Progression, Cardiac Status Patient progressing according to plan . Narrative/Incidental P- see plan of care I- intervention per plan of care E- pt started on amio for tachycardia. VSS. bowel regimen given and bowel movement attempted but just passed gas. pat tubes pulled. see cis for more information. . Discharge Information Pulmonary Rehab Discharge : Pulmonary Rehab Discharge Status 12/31/2023 20:31 EST CPAP/BiPAP Mask Size Medium 12/31/2023 17:25 EST CPAP/BiPAP Mask Size Medium 12/31/2023 15:14 EST PEEP 5 * Tea Agarwal RN: PERFORM Event Display: Progress Note Hospital Authored Date: pt transferred to room 24 via wheelchair by stat nurse. pt transported in stable condition. Consult note * Agustin Fontenot MD: PERFORM Event Display: Consultation Note Authored Date: [id number] Patient: ??KEYSHAWN GRAVES ? Age:??68 Years?Sex:??Male?:??1955?? Reason for Consultation cad History of Present Illness The patient is a??68-year-old??retired??male??with??PMH??of??HTN, HLD,??preDM, h/o prostate CA s/p prostatectomy who presented with exertional chest pain.??Denies syncope, light headedness, chest pain??at rest, visual changes, n/v, cough, orthopnea, muscle weakness, difficulty urinating or hematuria, no dark stools or melena.??Echo at [place] by report normal EF no valve abnormality, possible inferior wall motion abnormality. He??underwent cardiac catheterization that??revealed??90% LM and 95% RCA with 95% ostial PDA. He is referred to me today to discuss possible coronary artery bypass grafting. Review of Systems Constitutional:??No weight loss, fever, chills, weakness or fatigue. Allergy/Immune: Denies any??Eczema or hives Eyes:??No visual loss, blurred vision, double vision or yellow sclera ENT:??No hearing loss, sneezing, congestion, runny nose or sore throat. Respiratory:??No shortness of breath, cough or sputum production. Cardiovascular:??No chest pain, chest pressure or chest discomfort. No palpitations or pedal edema. Gastrointestinal:??No anorexia, nausea, vomiting or diarrhea. No abdominal pain or blood in stool. Genitourinary:??No burning micturition. No urinary frequency or incontinence. Neurologic:??No headache, dizziness, syncope, unilateral weakness, ataxia, numbness or tingling in the extremities. No change in bowel or bladder control. Musculoskeletal:??No muscle pain, back pain, joint pain or stiffness. Hematologic/Lymphatics:??No bleeding or bruising. No painful lymph nodes. Skin:??No rash or itching. Endocrine:??No reports of sweating. No cold or heat intolerance. No polyuria or polydipsia. Psychiatric:??No depression or anxiety. Physical Exam Vitals & Measurements T:??98.6?F?? HR:??69??(Monitored)?? RR:??11?? BP:??120/65?? SpO2:??96%?? CONST:??Appears stated age, no acute distress, alert and oriented X 3 EYES:??Anicteric, nl conjunctivae, EOM intact ENT:??Nl oropharynx NECK:??No evidence of JVD or HJR. Carotid impulses and upstroke normal bilaterally, no carotid bruits.?? CV: S1/2,??Femoral pulses nl and symmetric, no femoral bruits.??No aortic pulsation or aortic bruits. RESP:??Normal respiratory effort,??clear to auscultation GI:??Soft, non-tender and non-distended, bowels sounds normoactive, no abdominal bruits EXT: no??lower extremity edema,??no clubbing,??no cyanosis SKIN:??No rash, skin warm and dry.?? NEURO:?Alert and oriented x 3, CN 2-12 grossly intact?? Assessment/Plan The patient is a??68??year old male who??presented??with??stable angina??found??today on cardiac catheterization??to have multivessel coronary disease, currently chest pain free and hemodynamically stable and now is being evaluated for CABG. I reviewed in detail his cardiac catheterization; he will likely benefit from??three-four??vessel CABG, namely RIOS-LAD, L radial OM, SVG- PDA (possible PLV).I discussed with the patient the high risk nature of coronary artery surgical revascularization andanswered all his questions today. At this time, the preoperative evaluation necessary includes transthoracic echocardiogram??(obtain images from [place], if not available then repeat here),??CT chestw/o contrast,??screening carotid duplex.??Please obtain Hgb A1C laboratory value. I quoted him an overall risk of mortality between??1-2% based on his comorbidities, which I believe may be an underestimate due to his frailty. ??We discussed the nonfatal complications of surgical intervention??including myocardial infarction, stroke, infections, bleeding, multi-system organ failure, and prolonged ventilator dependence. We discussed the need for transfusions and its inherent risks.??I will discuss his case with my partners and Dr. Maya to determine best management options, being admitted andplanning for surgical revascularization this week after his preoperative evaluation is complete. ?? Thank you for this referral. ? Agustin Fontenot MD [facility] Cardiac Surgery?? [address], [address] [place] [address] Office: [phone] ? Problem List/Past Medical History Ongoing Obese class I Medications Inpatient Acetaminophen Tablet, 650 mg, By Mouth, Every 4 hours, PRN Aspirin Tablet, 81 mg, By Mouth, Daily atorvastatin 80 mg oral tablet, 80 mg, By Mouth, Daily at bedtime famotidine 20 mg oral tablet, 20 mg, By Mouth, Daily Heparin 25,000 units in 250 mL Premix 25,000 units [9 units/kg/hr] + D5%W Premixed IV 250 mL Heparin Inj, 4648.5 units= 0.93 mL, 45 units/kg, IV Push, Once Heparin Inj, 6198 units= 1.24 mL, 60 units/kg, IV Push, Every 6 hours, PRN Heparin Inj, 3099 units= 0.62 mL, 30 units/kg, IV Push, Every 6 hours, PRN Lasix Inj, 20 mg= 2 mL, IV Push Slowly, Once Melatonin Tablet, 3 mg, By Mouth, Daily at bedtime, PRN MiraLax Powder, 17 Gm= 1 pack/packet, By Mouth, Daily, PRN NaCL 0.9% 1000 mL, 1000 mL, IV Infusion NaCL 0.9% Flush, 3 mL, IV Push, Every 8 hours NaCL 0.9% Flush, 3 mL, IV Push, Every 8 hours, PRN NaCL 0.9% Flush, 3 mL, IV Push, Every 8 hours NaCL 0.9% Flush, 3 mL, IV Push, Every 8 hours, PRN Senna Tablet, 8.6 mg= 1 tablet, By Mouth, 2 times a day, PRN Toprol XL 50 mg oral tablet, extended release, 50 mg, By Mouth, Daily in AM Home Aspirin Low Dose 81 mg oral delayed release tablet, 81 mg= 1 tablet, By Mouth, Daily atorvastatin 20 mg oral tablet, 20 mg= 1 tablet, By Mouth, Daily Colace sodium 100 mg oral capsule, 100 mg= 1 capsule, By Mouth, 2 times a day, PRN famotidine 20 mg oral tablet Metoprolol Succinate ER 25 mg oral tablet, extended release, 25 mg= 1 tablet, By Mouth, Daily Allergies Dust??(runny nose, sneezing) Pollen??(runny nose, sneezing) shellfish??(nausea vomiting) Social History Alcohol Use: Current. Frequency: Daily. Type: Beer. Tobacco Use: Former smoker, quit more than 30 days ago. Family History no premature cad Patient Care team information Care Team Personnel Name: Isa Gallo RN Position: S RN Member Role: Primary Care Nurse Name: Yg Mittal MD Position: S Outreach Member Role: PCP Address: [address] [place] [address] Telecom: Name: Haydee Benavides RN Position: S RN Member Role: Primary Care Nurse Name: Lily Millan RN Position: S RN Member Role: Primary Care Nurse Name: Souleymane Alves RN Position: S RN Member Role: Primary Care Nurse Name: Daphney Robbins RN Position: S RN Member Role: Primary Care Nurse Name: Reji Odell RN Position: S RN Member Role: Primary Care Nurse Care Team Related Persons Name: ANJU GRAVES Insurance Providers Guarantor name: JEANETTE Health Plan Information #: 1 Payer: MEDICARE [place] [address] REPLC Member Number: [id number] Policy Number: NA Group Number: [id number] Health Plan Information #: 2 Payer: MEDICARE HMO BLUE BC65 REPLC Member Number: [id number] Policy Number: NA Group Number: [id number]
--- OUTSIDE RECORDS SUMMARY | 2024-02-03 10:10 | XMS_ITS | Continuity of Care Document ---
Author Organization [facility] hanny Address [address] [place] [address] [place] [address]- Care Team Providers Care Financial Services Rep Name Role Phone Daxa DEMARCO, Yg Henry Primary Care Physician Encounter [facility] Date(s): 01/20/24 - 01/27/24 [facility] [address] [place] [address] Drive [address] [place] [address]- Encounter Diagnosis S/P CABG x 3(Discharge Diagnosis) - 01/20/24 Attending Physician: Agustin Fontenot MD Referring Physician: Richar Lynn MD Encounter Type: Office Visit Allergies, Adverse Reactions, Alerts Substance Criticality Severity [...] R ecorded tetanus/diphtheria/pertussis, acel(Tdap) 03/21/10 Recorded Medications amiodarone 200 mg oral tablet 200 mg, 1, tablet, By Mouth, Daily, # 30 tablet, Refills 0, Tot. Refills 0, Maintenance, 01/04/24 2:01:00 PM EST, Route to Pharmacy Electronically, [facility], Partial fill upon patientrequest if the prescription is for a schedule II opioid drug., 171, cm, 01/04/24 11:16:00 EST, Height, 81, kg, 12/31/23 15:00:00 EST, Dry Weight Start Date: 01/04/24 Stop Date: 02/03/24 Status: Ordered Quantity: 30.0 Unit: tablet Repeat number: 1 aspirin 81 mg oral capsule 1 capsule = 81 mg, By Mouth, Every 24 hours, # 30 capsule, 0 Refills, Maintenance, 01/27/24 3:45:00PM EST, [facility]/pharmacy #[id number], Partial fill upon patient request if the prescription is for a scheduleII opioid drug., 171, cm, 01/20/24 9:45:00 EST, Height, 78.18, kg, 01/20/24 9:45:00 EST, Dry Weight Start Date: 01/27/24 Stop Date: 02/26/24 Status: Ordered Quantity: 30.0 Unit: capsule Repeat number: 1 atorvastatin 80 mg oral tablet 1 tablet = 80 mg, By Mouth, Daily at bedtime, # 30 tablet, 0 Refills, Maintenance, 01/27/24 3:45:00PM EST, Tablet, [facility]/pharmacy #[id number], Partial fill upon patient request if the prescription is for a schedule II opioid drug., 171, cm, 01/20/24 9:45:00 EST, Height, 78.18, kg, 01/20/24 9:45:00 EST, Dry Weight Start Date: 01/27/24 Stop Date: 02/26/24 Status: Ordered Quantity: 30.0 Unit: tablet Repeat number: 1 chlorpheniramine 4 mg oral tablet 1 tablet = 4 mg, By Mouth, 4 times a day, PRN for allergy symptoms, # 40 tablet, 0 Refills, Maintenance, 01/20/24 9:48:00 AM EST, Tablet, Partial fill upon patient request if the prescription is for aschedule II opioid drug. Start Date: 01/20/24 Status: Ordered Quantity: 40.0 Unit: tablet Repeat number: 1 Colace sodium 100 mg oral capsule 100 mg, 1, capsule, By Mouth, 2 times a day, PRN, # 20 capsule, Refills 0, Tot. Refills 0, Maintenance, for constipation, 09/21/21 10:00:00 AM EDT, Route to Pharmacy Electronically, [facility]/pharmacy #[id number],Partial fill upon patient request if the prescription is for a schedule II opioid drug., 173, cm, 09/21/21 7:40:00 EDT, Height, 103.3, kg, 09/20/21 21:46:00 EDT, Dry Weight Start Date: 09/21/21 Status: Ordered Quantity: 20.0 Unit: capsule Repeat number: 1 Melatonin Daily at bedtime, 0 Refills, Maintenance, 01/20/24 9:48:00 AM EST, Partial fill upon patient requestif the prescription is for a schedule II opioid drug. Start Date: 01/20/24 Status: Ordered Repeat number: 1 metoprolol 50 mg oral tablet, extended release 50 mg, 1, tablet, By Mouth, Daily, # 30 tablet, Refills 0, Tot. Refills 0, Maintenance, 01/27/24 3:45:00 PM EST, Route to Pharmacy Electronically, [facility]/pharmacy #[id number], Partial fill upon patient request if the prescription is for a schedule II opioid drug., 171, cm, 01/20/24 9:45:00 EST, Height, 78.18, kg, 01/20/24 9:45:00 EST, Dry Weight Start Date: 01/27/24 Stop Date: 02/26/24 Status: Ordered Quantity: 30.0 Unit: tablet Repeat number: 1 Vashe Topical Solution 475 mL, Topically, Every 12 hours, 0 Refills, Maintenance, Solution Start Date: 01/04/24 Status: Ordered Repeat number: 1 Problem List Condition Confirmation Course Effective Dates Status H ealth Status Informant Multi-vessel coronary artery stenosis Confirmed Active Heart failure with preserved ejection fraction Confirmed Active S/P CABG x 3 Confirmed Active Hyperlipidemia Confirmed Active Obesity Confirmed Active Pre-diabetes Confirmed Active Diagnosis Diagnosis Type Effective Dates Health Status Cl inical Service Informant S/P CABG x 3 Discharge Diagnosis 01/20/24 Procedures Procedure Date Related Diagnosis Body Site Status CABGx3 (RIOS to LAD, SVG to PDA, RA to OM) 12/31/23 Completed Vital Signs Most recent to oldest [Reference Range]: 1 Height 171 cm (01/20/24 9:45 AM) Weight 78.18 kg (01/20/24 9:45 AM) Oxygen Saturation [94-100 %] 99 % (01/20/24 9:45 AM) Pulse Rate [55-90 bpm] 79 bpm (12/4/24 9:45 AM) Body Mass Index [18.5-24.99 kg/m2] 26.74 kg/m2 *H* (01/20/24 9:45 AM) Blood Pressure [90-138/55-84 mm Hg] 90/5 0mm Hg (01/20/24 9:45 AM) Respiratory Rate [16-30 br/min] 16 br/mi n (01/20/24 9:45 AM) Temperature [96.8-100.4 DegF] 97.9 DegF (01/20/24 9:45 AM) Mode of Delivery (Oxygen) Room air (01/20/24 9:45 AM) Blood pressure sites Arm, left (01/20/24 9:45 AM) Temperature Route Oral (01/20/24 9:45 AM) Dry Weight 78.18 kg (01/20/24 9:45 AM) Weight Obtained Via Patient/family state d (01/20/24 9:45 AM) Dry Weight Obtained Via Patient/family s tated (01/20/24 9:45 AM) Social History Social History Type Response Smoking Status Former smoker, quit more than 30 days ago entered on: 09/20/21 Sex Sex Representation Male (finding) Cardiac surgery Outpatient Note * Robbie MOREL, Dotty Morfin: PERFORM Event Display: Cardiac Surgery Note Office Authored Date: [id number] Patient: ??KEYSHAWN HERMOSILLO ? Age:??69 Years?Sex:??Male?:??1955?? Chief Complaint Post-Op CABGx3 History of Present Illness PMI:??68-year-old male with PMHx significant for prediabetes, HLD, ex-smoker, prostate cancer post prostatectomy and daily alcohol use- 5 beer/day. Patient present for an elective cath as an ischemicworkup for complaint of dyspnea and exertional chest pain and found to have severe MVD. CTS was consulted for evaluation for surgical revascularization and now presents for CABG. ?? OR: 12/30??CABGx3 (RIOS to LAD, SVG to??PDA, RA??to??OM)??by Dr. Fontenot ?? Post operative hospital course: Post??op??afib??with [facility].?Discharged home POD4 with [facility] services ?? Mr. Hermosillo presents to the office for his post op visit.?? He states he is doing ok at home.?? He has been having some right knee pain, in which he couldn't bend his knee.?? It's better now and he used ice/heat that also made it better.?? He noticed that his right leg was more swollen over the weekend but it improved now.? His weight has decreased since discharge, he is 172# today, he nzb279# on discharge and he was around 187# prior to surgery.?? He has no complaints of lightheadedness, dizziness or irreg hr.?? He attended a class at [facility] about alcohol cessation and was offered medications.?? He states he has only had 2 beers since he has been home, but he wants to continue not drinking.?? He has follow up with Cardiology on 02/10, his PCP on 03/02 and he plans on starting Cardiac Rehab on 02/01.?? Review of Systems Denies fever, chills, drainage from surgical sites, N/V, CP, SOB, palpitations, ROSS, dizziness or lightheadedness. All other systems reviewed and negative. Physical Exam Vitals & Measurements T:??97.9?F?? HR:??79??(Peripheral)?? RR:??16?? BP:??90/50?? SpO2:??99%?? HT:??171??cm?? WT:??78.18??kg?? BMI:??26.74?? General: NAD, WD, WN HEENT: NCAT, no scleral icterus, OP pink moist Lungs: CTAB, no wheezes, rales, rhonchi Heart: RRR, No M/G/R Ext: No clubbing/cyanosis or edema Neuro: AOx3, no unilateral deficits moves all extremities spontaneously Skin: warm, no rash ?? Wounds:?? Sternum: Stable, incision intact.?? Chest tube suture removed.?? LUE Nooksack site, intact.?? RLE Nooksack site intact with glue present.?? No erythema.?? Assessment/Plan 1.??S/P CABG x 3 ??Recommend ASA,??BB and statin for CAD and graft patency.? Amiodarone started post-op for Afib prophylaxis. Finish as prescribed, then stop. No refills needed.? The following salient points were discussed during our visit ?? D/w with patient that after open chest surgery, it is common to start new medications and stop or adjust the doses of previous medications.?? Wound Care: Re-iterated with patients that??the sternum is reapproximated with stainless steel wires and can still shift until fully healed. * Continue to shower and let water run over surgical wounds.?? Use VASHE 2-3 times per day on incisions until bottle is empty * Recommend wearing compression stocking for the first month daily, remove at night.??Elevate legs (ankle higher than knees, knees higher than hip) to encourage fluid movement.?Wear compression stocking for any prolong periods of standing in the future.? After discharge from the hospital, the patient is usually given instructions about how to care for their chest and/or leg wounds. ?? Specifically, we discussed: Avoid heavy lifting and extremes of shoulder movement (eg, as in tennis, baseball, and golf) for six to eight weeks after surgery to allow for complete healing of the sternum. Prefer not to have patient laying completely on the side for 2 months. ?? No driving for 2-3 weeks, and no driving if taking narcotic medications. It is not unusual to have a poor appetite after undergoing surgery. Proper nutrition is important in promoting healing and getting strength back. Encourage 100 grams of protein daily for healing.? Follow up with cardiology and PCP as planned Start Cardiac Rehab ?? Patient stated that his epicardial wires were cut while trying to be removed.?? No documentation of retained wires.?? Will obtain CT scan to evaluate for retained wires.? Encouraged??patient to refrain from alcohol and to continue to seek guidance, assistance and therapy for continued support.?? Ordered: CT Chest W/O Contrast ?? Orders: Aspirin, 1 capsule = 81 mg, By Mouth, Every 24 hours, # 30 capsule, 0 Refills, Maintenance, 01/27/24 15:45:00 EST, [facility]/pharmacy #[id number], Partial fill upon patient request if the prescription is for a schedule II opioid drug., 171, cm, 01/20/24 9:45:00 EST, Heigh... Atorvastatin, 1 tablet = 80 mg, By Mouth, Daily at bedtime, # 30 tablet, 0 Refills, Maintenance, 01/27/24 15:45:00 EST, Tablet, [facility]/pharmacy #[id number], Partial fill upon patient request if the prescription is for a schedule II opioid drug., 171, cm, 01/20/24 9:45:00 ES... Metoprolol, 50 mg, 1, tablet, By Mouth, Daily, # 30 tablet, Refills 0, Tot. Refills 0, Maintenance,01/27/24 15:45:00 EST, Route to Pharmacy Electronically, [facility]/pharmacy #1234, Partial fill upon patient request if the prescription is for a schedule II opioid drug... Total Time Spent I personally spent a total of??60 minutes, including both qltb-ab-mqmt and zqx-yjyf-xr-face time onthe date of the encounter, addressing the above diagnoses. Problem List/Past Medical History Ongoing Heart failure with preserved ejection fraction Hyperlipidemia Multi-vessel coronary artery stenosis Obesity Pre-diabetes S/P CABG x 3 Procedure/Surgical History ???CABGx3 (RIOS to LAD, SVG to PDA, RA to OM) (12/31/2023) Medications amiodarone 200 mg oral tablet, 200 mg= 1 tablet, By Mouth, Daily aspirin 81 mg oral capsule, 81 mg= 1 capsule, By Mouth, Every 24 hours atorvastatin 80 mg oral tablet, 80 mg= 1 tablet, By Mouth, Daily at bedtime chlorpheniramine 4 mg oral tablet, 4 mg= 1 tablet, By Mouth, 4 times a day, PRN Colace sodium 100 mg oral capsule, 100 mg= 1 capsule, By Mouth, 2 times a day, PRN Melatonin, Daily at bedtime metoprolol 50 mg oral tablet, extended release, 50 mg= 1 tablet, By Mouth, Daily Vashe Topical Solution, 475 mL, Topically, Every 12 hours Allergies Dust??(runny nose, sneezing) Pollen??(runny nose, sneezing) shellfish??(nausea vomiting) Social History Alcohol Use: Current. Frequency: Daily. Type: Beer. Tobacco Use: Former smoker, quit more than 30 days ago. Patient Care team information Care Team Personnel Name: Isa Gallo RN Position: S RN Member Role: Primary Care Nurse Name: Yg Mittal MD Position: S Outreach Member Role: PCP Address: [address] [place] [address] Telecom: Name: Haydee Benavides RN Position: S [...] Nurse Care Team Related Persons Name: ANJU HERMOSILLO Insurance Providers Guarantor name: JEANETTE Health Plan Information #: 1 Payer: MEDICARE [place] [address] REPLC Member Number: [id number] Policy Number: JEANETTE Group Number: [id number] Health Plan Information #: 2 Payer: [place]IC[place] [address] RE[place] Member Number: [id number] Policy Number: JEANETTE Group Number: [id number]
--- OUTSIDE RECORDS SUMMARY | 2024-02-03 10:10 | XMS_ITS | Continuity of Care Document ---
Author Organization [facility] Address [address] [place] [address]- Care Team Providers Care Rn Orthopaedic Name Role Phone Daxa DEMARCO, Yg Henry Primary Care Physician Encounter 01/05/24 - 02/01/24 [facility] [address] [place] [address]- Discharge Disposition: GOALS MET Encounter Type: Disch [facility] Allergies, Adverse Reactions, Alerts Substance Criticality Severity [...] 2:01:00 PM EST, Route to Pharmacy Electronically, [facility], Partial fill upon patientrequest [...] capsule, 0 Refills, Maintenance, 01/27/24 3:45:00PM EST, [facility] #[id number], Partial fill upon patient request [...] 0 Refills, Maintenance, 01/27/24 3:45:00PM EST, Tablet, [id number], Partial fill upon patient request [...] 10:00:00 AM EDT, Route to Pharmacy Electronically, [id number],Partial fill upon patient request if [...] 3:45:00 PM EST, Route to Pharmacy Electronically, [id number], Partial fill upon patient request [...] Active Obesity Confirmed Active Pre-diabetes Confirmed Active Social History Social History Type Response Smoking Status Former smoker, quit more than 30 days ago entered on: 09/20/21 Sex Sex Representation Male (finding) Patient Care team information Care Team Personnel Name: Isa Gallo RN Position: S RN Member Role: Primary Care Nurse Name: Yg Mittal MD Position: S Outreach Member Role: PCP Address: [address] [place] [address] Telecom: Name: Haydee Benavides RN Position: S RN Member Role: Primary Care Nurse Name: Lily Millan RN Position: S RN Member Role: Primary Care Nurse Name: Souleymane Alves RN Position: S RN Member Role: Primary Care Nurse Name: Daphney Robbins RN Position: S RN Member Role: Primary Care Nurse Name: Reji Odell RN Position: ADARSH RN Member Role: Primary Care Nurse Care Team Related Persons Name: ANJU GRAVES Insurance Providers Guarantor name: KEYSHAWN GRAVES [facility] Plan Information #: 1 Payer: MEDICARE HMO BLUE [id number] REPLC Member Number: NA Policy Number: NA Group Number: NA
--- OUTSIDE RECORDS SUMMARY | 2024-02-03 10:10 | XMS_ITS | Patient Health Record ---
Author Organization [facility] Address [address] [place], [place] [id number] Support Name Relationship Address Phone Emiliano Hermosillo Guarantor Unknown Unavailable Reason For Referral No Information Plan Of Treatment No Information Insurance Providers Payer Name Payer Address Payer Phone Subscriber Number Group Number Insured Name Patient Relationship to Insured Coverage Start Date Coverage End Date [place] Medicaid Standard [address] [place] [address] [id number] Emiliano Hermosillo Self - patient is the insured
--- NOTE | 2024-02-03 10:13 | A.OFFVISCC_ITS ---
Intake Visit Reasons: MAT Office Allergies No Known Allergies Allergy (Verified 12/25/23 08:06) HPI HPI MAT Office: Details: Patient presents for follow up Recently had a CABG at [facility] Reports he is recovering well Cardiac rehab starts on Thursday Discussed current alcohol use 1-4 beers no more than 3 times a week Some minimizing of alcohol intake, but aware that risk is greater Discussed the importance of taking on something enjoyable to fill his time as drinking often is associated with boredom for him He is not yet ready to trial naltrexone Review of Systems Const Reports as per HPI and Reports no additional complaints Physical Exam Const General: cooperative, comfortable and well groomed Nutritional Appearance: average body habitus Orientation/consciousness: patient oriented x3 Limitations: no limitations Neuro General: patient oriented x3 Quality Reporting (2019) Adult ([facility] 13804/09/68) Smoking risk assessment performed?: Yes Patient Tobacco Use Status: Former Tobacco user Assessment & Plan Assessment & Plan (1) Alcohol use disorder: Code(s): F10.90 - Alcohol use, unspecified, uncomplicated Category: Medical Plan: * risk reduction discussion * follow up 6 weeks * encouraged to call office prior to next appt should he decide he wants to trial naltrexone PFSH Medical History Borderline hyperlipidemia Umbilical hernia Bloating Borderline diabetes Surgical History H/O colonoscopy Family History Father Angina pectoris Mother Asthma Social History Household Members: Family and None Housing: House Alcohol intake: current Alcohol intake frequency: 3 or more drinks per day Alcohol type: beer Patient Tobacco Use Status: Former Tobacco user Tobacco use type: Cigarette e-Cigarette/Vaping Use: Never Used Second Hand Smoke Exposure: No service: No Current occupational status: retired Current occupational exposures/hazards: No Cognitive needs: No Hearing needs: No Vision needs: No
== END 2024-02-03 13:10 | disposition home or self-care (01) ==
PROVIDERS: PCP Family Medicine; Visit Provider Nurse Practitioner Psychiatric/Mental Health
DX: F10.90 Alcohol use, unspecified, uncomplicated (principal)
CPT/HCPCS: 99214

== ENCOUNTER → 2024-02-03 10:04 | Outpatient (BNVA) | payer MEDICARE, SELFPAY | PROVIDERS: PCP Family Medicine; Visit Provider Nurse Practitioner Psychiatric/Mental Health | DX: F10.90 Alcohol use, unspecified, uncomplicated (principal) | CPT/HCPCS: 99212 ==

== ENCOUNTER 2024-02-11 11:21 | Outpatient (AMB) | payer MEDICARE, SELFPAY ==
--- OUTSIDE RECORDS SUMMARY | 2024-02-11 11:23 | XMS_ITS | Continuity of Care Document ---
Author Organization [facility] Address [address] [place] [address]- Care Team Providers Care Activity Coordinator Name Role Phone Daxa DEMARCO, Yg Henry Primary Care Physician Encounter [facility] Date(s): 01/04/24 - 02/03/[address] [address] Attending Physician: Not on Staff, Attending MD Admitting Physician: Not on Staff, Admitting MD Referring Physician: Not on Staff, Referring MD Encounter Type: Pre-Outpt Allergies, Adverse Reactions, Alerts Substance Criticality Severity [...] 2:01:00 PM EST, Route to Pharmacy Electronically, [facility], Partial fill upon patientrequest if [...] capsule, 0 Refills, Maintenance, 01/27/24 3:45:00PM EST, [facility]/pharmacy #[id number], Partial fill upon patient request [...] 0 Refills, Maintenance, 01/27/24 3:45:00PM EST, Tablet, [id number], Partial fill upon patient request [...] 10:00:00 AM EDT, Route to Pharmacy Electronically, [facility] #[facility],Partial fill upon patient request if [...] 3:45:00 PM EST, Route to Pharmacy Electronically, [facility] #1234, Partial fill upon patient request [...] Former smoker, quit more than 30 days ago; Exposure to Secondhand Smoke: Yes; Other: Quit cigarettes in 1998. Smoked 3 cigars per day until several months ago.; entered on: 02/02/24 Sex Sex Representation Male (finding) Patient Care team information Care Team Personnel Name: Isa Gallo RN Position: S RN Member Role: Primary Care Nurse Name: Yg Mittal MD Position: S Outreach Member Role: PCP Address: [address] [place] [address] Telecom: Name: Haydee Benavides RN Position: S RN Member Role: Primary Care Nurse Name: Lily Millan RN Position: S RN Member Role: Primary Care Nurse Name: Souleymane Alves RN Position: [facility] RN Member Role: Primary Care Nurse Name: Daphney Robbins RN Position: S RN Member Role: Primary Care Nurse Name: Reji Odell RN Position: [facility] RN Member Role: Primary Care Nurse Care Team Related Persons Name: ANJU GRAVES Insurance Providers Guarantor name: KEYSHAWN GRAVES [facility] Plan Information #: 1 Payer: MEDICARE HMO BLUE BC65 REPLC Member Number: NA Policy Number: NA Group Number: NA
--- OUTSIDE RECORDS SUMMARY | 2024-02-11 11:23 | XMS_ITS | Patient Health Record ---
Author Organization [facility] Address [address], [place] [id number] Support Name Relationship Address Phone Emiliano Hermosillo Guarantor Unknown Unavailable Reason For Referral No Information Plan Of Treatment No Information Insurance Providers Payer Name Payer Address Payer Phone Subscriber Number Group Number Insured Name Patient Relationship to Insured Coverage Start Date Coverage End Date [place] Medicaid Standard [address] [place] [address] [id number] Emiliano Hermosillo Self - patient is the insured
--- NOTE | 2024-02-11 11:36 | A.OFFVIS_ITS ---
Vital Signs 02/11/24 11:37 Height 5 ft 8 in Weight 176 lb 5.917 oz BMI 26.8 BP 114/62 Blood Pressure Location Lt brachial Position Sitting Pulse 64 Intake Visit Reasons: 5wk follow up s/p heart surgery Intake Note: 7 week follow-up post bypass still healing Legal Aid Required: No Allergies No Known Allergies Allergy (Verified 12/25/23 08:06) Medication List - Last Reconciled 02/11/24 by Richar Lynn MD aspirin 81 mg PO DAILY atorvastatin 80 mg PO QPM mecobalamin (vitamin B12) 2,000 mcg PO DAILY metoprolol succinate ER 50 mg PO DAILY multivitamin 1 tab PO DAILY HPI Comments Details: Emiliano comes for follow-up. He underwent three-vessel coronary artery bypass grafting for critical coronary artery disease for crescendo angina. He underwent a RIOS to LAD, SVG to PDA and free radial to OM branch of the circumflex artery. Since then he said his anginal symptoms have been well controlled. He is currently taking all his medications. Describes symptoms of orthostatic lightheadedness but no syncopal episodes. No heart failure symptoms. He is currently recuperating from his coronary artery bypass grafting surgery and says not feels more energy. He has started phase 2 cardiac rehabilitation. Denies any prolonged palpitation irregular heartbeat. Denies any orthopnea, PND, leg edema. PENDING SALE TO [facility] Medical History (Updated 02/11/24 @ 14:01 by Richar Lynn MD) CAD (coronary artery disease) Borderline hyperlipidemia Umbilical hernia Bloating Borderline diabetes Surgical History H/O colonoscopy Family History Father Angina pectoris Mother Asthma Social History Household Members: Family and None Housing: House Alcohol intake: current Alcohol intake frequency: 3 or more drinks per day Alcohol type: beer Patient Tobacco Use Status: Former Tobacco user Tobacco use type: Cigarette e-Cigarette/Vaping Use: Never Used Second Hand Smoke Exposure: No service: No Current occupational status: retired Current occupational exposures/hazards: No Cognitive needs: No Hearing needs: No Vision needs: No Review of Systems Const Denies chills, Denies fatigue, Denies fever(s), Denies frequent falls, Denies weakness, Denies weight gain and Denies weight loss ENT Denies dizziness Card Denies chest pain, Denies leg edema, Denies lightheadedness, Denies palpitations, Denies dyspnea, Denies dyspnea on exertion, Denies orthopnea and Denies other (loss of consciousness) Resp Denies cough, Denies dyspnea and Denies dyspnea on exertion GI Denies hematochezia and Denies change in stool character Musc Denies abnormal gait, Denies muscle weakness, Denies numbness, Denies radiating pain into limb and Denies tingling Neuro Denies abnormal gait, Denies dizziness, Denies frequent falls, Denies numbness, Denies tingling and Denies weakness Endo Denies fatigue and Denies palpitations Physical Exam Vital Signs: Last Vital Signs Pulse 64 02/11/24 11:37 BP 114/62 02/11/24 11:37 BMI result Body Mass Index 26.8 Const General: cooperative, comfortable, no acute distress, alert and Physically active Nutritional Appearance: average body habitus Orientation/consciousness: patient oriented x3 Neck Neck: Yes trachea midline, Yes supple and Yes no JVD Chest Chest palpation & inspection: other (Well-healed sternotomy scar) Resp Effort & Inspection: normal respiratory effort Auscultation: clear to auscultation bilaterally Cardio Jugular venous distension: no JVD Palpation: normal PMI Rate: regular rate Rhythm: regular rhythm Heart sounds: S1 normal heart sound present, S2 normal heart sound present, no click, no gallops, no murmurs and no rubs GI Auscultation: normal bowel sounds Skin General skin exam: no rashes or lesions noted Neuro General: patient oriented x3 and no focal motor deficits Extrem General: Yes no clubbing, cyanosis or edema Quality Reporting (2019) Adult ([facility] 138//) Smoking risk assessment performed?: Yes Patient Tobacco Use Status: Former Tobacco user Assessment & Plan Assessment & Plan (1) S/P CABG x 3: Comment: RIOS to LAD, SVG to PDA, left radial to OM branch, December 2023 Code(s): Z95.1 - Presence of aortocoronary bypass graft Category: Surgical Plan: Critical coronary artery disease requiring three-vessel coronary artery bypass grafting about 7 weeks ago. Resolved symptoms of angina at this point time. He had mildly reduced LV systolic function with underlying regional wall motion abnormality is highly suggestive of hopefully improving of the hibernating myocardium. Will repeat echocardiogram in near future. Management of coronary artery disease were discussed in details. Lifelong aspirin therapy is recommended. High-intensity statin therapy is recommended with target goal LDL closer to 60 mg/dL. Follow-up lipid panel in near future. Continue metoprolol therapy. Blood pressure is currently well optimized. Orthostatic lightheadedness probably due to reduced oral water intake. Advised to increase hydration. Advised to maintain regular physical activity and complete phase 2 cardiac rehabilitation. Follow up in the clinic in 3 months time, sooner p.r.n.. Thank you for allowing me to partake in his care Orders: Orders Lipid Panel Today I25.10 - Atherosclerotic heart disease of [place] coronary artery without angina pectoris, Z95.1 - Presence of aortocoronary bypass graft CA Echo Limited Today I42.9 - Cardiomyopathy, unspecified, Z95.1 - Presence of aortocoronary bypass graft Medications: New metoprolol succinate ER 50 mg (2 x 25 mg) PO DAILY 90 tabs 3RF Z95.1 - Presence of aortocoronary bypass graft atorvastatin 80 mg (4 x 20 mg) PO QPM 90 tabs 3RF Z95.1 - Presence of aortocoronary bypass graft Coding Level of Care Code Est Pt Level 4 (09783) Complex EM visit Add On G2211 Diagnoses S/P CABG x 3 Z95.1
[2024-02-11 11:37] VITALS: BP 114/62; PULSE 64; BMI 26.8
== END 2024-02-11 12:02 | disposition home or self-care (01) ==
PROVIDERS: PCP Family Medicine; Visit Provider Internal Medicine Cardiovascular Disease
DX: Z95.1 Presence of aortocoronary bypass graft (principal)
CPT/HCPCS: 99214; G2211

== ENCOUNTER → 2024-02-11 11:21 | Outpatient (BNVA) | payer MEDICARE, SELFPAY | PROVIDERS: PCP Family Medicine; Visit Provider Internal Medicine Cardiovascular Disease | DX: I25.10 Atherosclerotic heart disease of native coronary artery without angina pectoris (principal); I42.9 Cardiomyopathy, unspecified; Z95.1 Presence of aortocoronary bypass graft | CPT/HCPCS: 99212 ==

== ENCOUNTER → 2024-02-25 07:30 | Outpatient (REF) | payer MEDICARE, SELFPAY ==
--- NOTE | 2024-02-25 07:33 | CA_ITS ---
Transthoracic Echocardiogram Patient (Last, First, Middle): Emiliano Hermosillo, Gender: Male Date of : 1955 Age: 69 Procedure Date: 02/25/2024 Procedure Type: Transthoracic Echocardiogram Location: OP Height: 172.72 cm Weight: 78.47 kg BSA: 1.92 m2 Heart Rate: 60 bpm BP: 114 / 62 mmHg Prime Broker: BRAYDEN Referring MD: Richar Lynn MD Symptoms: I42.9 - Cardiomyopathy, unspecified Study Quality: Adequate/Limited ordered ECG Rhythm: Sinus Conclusions: - The left ventricular systolic function is mildly decreased. The calculated ejection fraction is 52% by biplane method. - The inferolateral wall, the basal inferior, and mid inferior segments are hypokinetic. Findings Left Ventricle Normal left ventricular cavity size. There is mildly increased left ventricular wall thickness. The left ventricular systolic function is mildly decreased. The calculated ejection fraction is 52% by biplane method. There is evidence of regional wall motion abnormalities. Wall Motion Rest Echo Findings The inferolateral wall, the basal inferior, and mid inferior segments are hypokinetic. Venous The inferior vena cava is normal in size and collapses greater than 50% with inspiration. Prior Study Comparison No significant change compared to prior study dated: 12/23/2023. Measurements 2D Linear Measurements IVSd: 1.26 0.6-0.9/0.6-1.0 cm LVIDd: 4.68 3.9-5.3/4.2-5.9 cm LVIDd Index: 2.44 2.4-3.2/2.2-3.1 cm/m2 LVIDs: 3.16 2.0-3.6 cm LVPWd: 1.11 0.7-1.1 cm LV Mass: 257.82 67-162/88-224 g LV Mass Index: 134.28 43-95/49-115 g/m2 LVOT Diam: 2.30 3.0+(-)1.3 cm 2D Systolic Function EF 4C: 63.10 >55% EF 2C: 44.40 >55% EF BiP: 51.80 >55% LVOT LVOT Pk Maverick: 0.84 LVOT Mn Maverick: 0.59 LVOT VTI: 0.19 LVOT Pk Grad: 3.00 LVOT Mn Grad: 2.00 LVOT Diam: 2.30 LVOT Area: 4.15 Updated in Other Vendor System with Status of Final Link Cote MD electronically signed on 02/27/2024 1:35:20 PM with status of Final
[2024-02-25 08:14] LABS: Cholesterol 127 mg/dL (<200); HDL Cholesterol 57 mg/dL (>40); LDL Cholesterol Calculated 53 mg/dL (<100); Triglycerides 89 mg/dL (<150)
== END ==
LOC: HO.CARD 07:30
PROVIDERS: PCP Family Medicine; Visit Provider Internal Medicine Cardiovascular Disease
DX: I25.10 Atherosclerotic heart disease of native coronary artery without angina pectoris (principal); I42.9 Cardiomyopathy, unspecified; Z95.1 Presence of aortocoronary bypass graft
CPT/HCPCS: 36415; 80061; 93308

== ENCOUNTER → 2024-02-25 07:33 | Outpatient (BNV) | payer MEDICARE, SELFPAY | PROVIDERS: PCP Family Medicine; Visit Provider Internal Medicine | DX: I42.8 Other cardiomyopathies (principal); R93.1 Abnormal findings on diagnostic imaging of heart and coronary circulation | CPT/HCPCS: 93308; 93321 ==

== ENCOUNTER 2024-03-01 11:33 | Outpatient (AMB) | payer MEDICARE, SELFPAY ==
--- NOTE | 2024-03-01 11:37 | MHC.PC.OV ---
Vital Signs 03/01/24 11:43 Height 5 ft 8 in Weight 181 lb 8 oz BMI 27.6 BP 104/60 Blood Pressure Location Lt brachial Position Sitting Respiration 16 Pulse 68 Pulse Source Pulse Oximeter Temp 97.7 F Temp Source Oral Pulse Oximetry (%) 98 Oxygen Delivery Method Room Air Intake Visit Reasons: 6-[address] Montilla Chest pain/cough Intake Note: cough and chest pain pt would also like to f/u about cabG Allergies No Known Allergies Allergy (Verified 03/01/24 11:40) Medication List - Last Reconciled 03/01/24 by Yg Mittal MD aspirin 81 mg PO DAILY atorvastatin 80 mg PO DAILY mecobalamin (vitamin B12) 2,000 mcg PO DAILY metoprolol succinate ER 50 mg (2 x 25 mg) PO DAILY multivitamin 1 tab PO DAILY Tobacco use date assessed: 05/28/23 Dental Screening Dental Screen Date: 05/28/23 HPI 6-[address] Montilla Chest pain/cough HPI Details 69 y/o male presents to f/u s/p CABG, chest pain. Critical coronary artery disease requiring three-vessel coronary artery bypass grafting. Symptoms have improved. Continues to f/u with Cardiology. They had discussed management of CAD, lifelong aspirin therapy and high intensity statin therapy. He is tolerating artovastatin 80mg daily. Ongoing cough. Reports hx of smoking. [facility] Medical History (Updated 03/01/24 @ 12:07 by Meño De La Cruz) CAD (coronary artery disease) Borderline hyperlipidemia Umbilical hernia Bloating Borderline diabetes Surgical History H/O colonoscopy Family History Father Angina pectoris Mother Asthma Social History Household Members: Family and None Housing: House Alcohol intake: current Alcohol intake frequency: 3 or more drinks per day Alcohol type: beer Patient Tobacco Use Status: Former Tobacco user Tobacco use type: Cigarette e-Cigarette/Vaping Use: Never Used Second Hand Smoke Exposure: No service: No Current occupational status: retired Current occupational exposures/hazards: No Cognitive needs: No Hearing needs: No Vision needs: No Questionnaire PHQ-9 Over the last 2 weeks, how often have you been bothered by any of the following problems? 1. Little interest or pleasure in doing things: not at all 2. Feeling down, depressed, or hopeless: not at all 3. Trouble falling or staying asleep, or sleeping too much: not at all 4. Feeling tired or having little energy: not at all 5. Poor appetite or overeating: not at all 6. Feeling bad about yourself - or that you are a failure or have let yourself or your family down: not at all 7. Trouble concentrating on things, such as reading the newspaper or watching television: not at all 8. Moving or speaking so slowly that other people could have noticed. Or the opposite - being so fidgety or restless that you have been moving around a lot more than usual: not at all 9. Thoughts that you would be better off or of hurting yourself in some way: not at all Total score: 0 Source: Developed by Drs. Aman Barth, Alisson Espinosa, Neno Jasso and colleagues, with an educational rufus from [employer]. Thrive Questionnaire Date Thrive assessed: 05/28/23 I am a: Patient What is your living situation today?: I have a steady place to live Within the past 12 months, did the food you bought not last and you didn't have the money to get more?: I choose not to answer this question Within the past 12 months, did you worry whether your food would run out before you got money to buy more?: I choose not to answer this question Do you have trouble paying for medicines?: I choose not to answer this question Do you have trouble getting transportation to medical appointments?: No Do you have trouble paying your heating and electricity bill?: I choose not to answer this question Do you have trouble taking care of your child, family member or friend?: No Do you have trouble with day-to-day activities such as bathing, preparing meals, shopping, managing finances, etc.?: No Are you currently unemployed and looking for a job?: No Are you interested in more education?: No Please select the resources that you would like help with: None Currently or been in a relationship where the following occur: I choose not to answer THRIVE Score: 0 AUDIT C Alcohol Use Questionnaire (AUDIT-C) 1. How often do you have a drink containing alcohol?: 2-3 times a week 2. How many drinks containing alcohol do you have on a typical day when you are drinking?: 3 or 4 3. How often do you have six or more drinks on one occasion?: Less than monthly Total Score: 5 IAN-7 AMB Questionnaire IAN-7 Date IAN - 7 assessed: 05/28/23 Feeling nervous, anxious, or on edge: 0 = Not at all Not being able to stop or control worryin = Not at all Worrying too much about different things: 0 = Not at all Trouble relaxin = Not at all Being so restless that it is hard to sit still: 0 = Not at all Becoming easily annoyed or irritable: 0 = Not at all Feeling afraid as if something awful might happen: 0 = Not at all Total IAN-7 score (0-4 normal; 5-9 mild; 10-14 moderate; 15-21 severe): 0 Source: Developed by Drs. Aman Barth, Alisson Espinosa, Neno Jasso and colleagues, with an educational rufus from [employer]. Physical exam (Primary Care) Vital Signs: Last Vital Signs Temp 97.7 F 03/01/24 11:43 Pulse 68 03/01/24 11:43 Resp 16 03/01/24 11:43 BP 104/60 03/01/24 11:43 Pulse Ox 98 03/01/24 11:43 Oxygen Delivery Method Room Air 03/01/24 11:43 BMI result Body Mass Index 27.6 Tobacco/Smoking Status: Tobacco use Status Tobacco use date assessed 05/28/23 03/01/24 11:41 Patient Tobacco Use Status Former Tobacco user 03/01/24 11:41 Tobacco use type Cigarette 03/01/24 11:41 e-Cigarette/Vaping Use Never Used 03/01/24 11:41 PHQ-9: PHQ-9 Score PHQ-9: Total score 0 03/01/24 11:45 Thrive Assessment: Date of Thrive Assessment Date Thrive assessed 05/28/23 03/01/24 11:41 Currently or been in a relationship where the following occur: I choose not to answer Coding Level of Care Code Est Pt Level 4 (32525) Diagnoses CAD (coronary artery disease) I25.10 S/P CABG x 3 Z95.1 Hyperlipidemia E78.5 Cough R05.9 Former smoker Z87.457 Assessment & Plan Assessment & Plan (1) CAD (coronary artery disease): Code(s): I25.10 - Atherosclerotic heart disease of [place] coronary artery without angina pectoris Category: Medical Plan: 69-year-old?male?with?recent?CABG?x3?which?has?resolved?his?anginal?symptoms. Follow-up?echocardiogram?shows?improvement?of?ejection?fraction He?is?now?metoprolol?and?blood?pressure?is?well?controlled?heart?rate?of?68?and?he?is?on?atorvastatin?80?mg?daily?and?lipids?appear?well?controlled?with?LDL?goal?less?than?70. Also?on?aspirin He?is?finishing?up?cardiac?rehab?and?will?switch?to?a?[facility]?program. Continue?current?medication?regimen?and?follow-up?with?Cardiology?recommended Continue?exercise?weight?loss. (2) S/P CABG x 3: Comment: RIOS to LAD, SVG to PDA, left radial to OM branch, December 2023 Code(s): Z95.1 - Presence of aortocoronary bypass graft Category: Surgical Plan: As?above (3) Hyperlipidemia: Code(s): E78.5 - Hyperlipidemia, unspecified Category: Medical Plan: LDL?cholesterol?goal?is?less?than?70.??Patient?is?at?goal?on?atorvastatin?80?mg?daily Her?medication?regimen (4) Cough: Code(s): R05.9 - Cough, unspecified Category: Medical Plan: Patient?had?complaints?of?cough?prior?to?his?CABG. Still?notes?cough?and?some?shortness?of?breath?no?this?does?not?change?with?exertion?as?prior?to?CABG. No?chest?pain He?is?a?former?smoker?with?a?smoking?history?of?greater?than?20?pack?years. Lungs?sound?clear?but?mildly?distant?breath?sounds. Will?check?chest?x-ray?and?pulmonary?function?testing (5) Former smoker: Code(s): Z87.891 - Personal history of nicotine dependence Category: Social Hx Plan: As?above Orders: Orders XR chest 2V Today F17.200 - Nicotine dependence, unspecified, uncomplicated, R05.9 - Cough, unspecified PFT pulmonary function test Today R05.9 - Cough, unspecified, Z87.891 - Personal history of nicotine dependence
[2024-03-01 11:43] VITALS: BP 104/60; PULSE 68; RESP 16; TEMP 36.5; O2SAT 98; BMI 27.6
--- OUTSIDE RECORDS SUMMARY | 2024-03-01 13:47 | XMS_ITS | Patient Health Record ---
Author Organization [facility] Address [address], [place] [id number] Support Name Relationship Address Phone Emiliano Hermosillo Guarantor Unknown Unavailable Reason For Referral No Information Plan Of Treatment No Information Insurance Providers Payer Name Payer Address Payer Phone Subscriber Number Group Number Insured Name Patient Relationship to Insured Coverage Start Date Coverage End Date [place] Medicaid Standard [address] [place] [address] [id number] Emiliano Hermosillo Self - patient is the insured
--- OUTSIDE RECORDS SUMMARY | 2024-03-01 13:47 | XMS_ITS | Continuity of Care Document ---
Author Organization [facility] Mateusz hanny Address [address] [place] [address] [place] [address]- Care Team Providers Care Back Maker Name Role Phone Daxa DEMARCO, Yg Henry Primary Care Physician Encounter [facility] Date(s): 01/20/24 - 02/19/24 [facility] [address] [place] [address] Drive [address] [place] [address]- Attending Physician: AdmViviana lee Admitting Physician: Admtr, Viviana Referring Physician: Admtr, Ar8 Encounter Type: Triage Allergies, Adverse Reactions, Alerts Substance Criticality Severity [...] 2:01:00 PM EST, Route to Pharmacy Electronically, [facility], Partial fill upon patientrequest [...] capsule, 0 Refills, Maintenance, 01/27/24 3:45:00PM EST, [facility]/pharmacy #[id number], Partial fill upon patient request if [...] 0 Refills, Maintenance, 01/27/24 3:45:00PM EST, Tablet, [facility]/pharmacy #[id number], Partial fill upon patient request if [...] 10:00:00 AM EDT, Route to Pharmacy Electronically, [facility]/pharmacy #[id number],Partial fill upon patient request if the [...] 3:45:00 PM EST, Route to Pharmacy Electronically, [facility]/pharmacy #[id number], Partial fill upon patient request if [...] Team Personnel Name: Isa Gallo RN Position: [facility] RN Member Role: Primary Care Nurse Name: Yg Mittal MD Position: [facility] Outreach Member Role: PCP Address: [address] [place] [address] Telecom: Name: Haydee Benavides RN Position: [facility] RN Member Role: Primary Care Nurse Name: Lily Millan RN Position: [facility] RN Member Role: Primary Care Nurse Name: Souleymane Alves RN Position: [facility] RN Member Role: Primary Care Nurse Name: Daphney Robbins RN Position: [facility] RN Member Role: Primary Care Nurse Name: Reji Odell RN Position: [facility] RN Member Role: Primary Care Nurse Care Team Related Persons Name: ANJU GRAVES Insurance Providers [facility] Plan Information #: 1 Payer: MEDICARE HMO BLUE [id number] REPLC Member Number: NA Policy Number: NA Group Number: NA
== END 2024-03-01 12:08 | disposition home or self-care (01) ==
PROVIDERS: PCP Family Medicine; Visit Provider Family Medicine
DX: I25.10 Atherosclerotic heart disease of native coronary artery without angina pectoris (principal); Z95.1 Presence of aortocoronary bypass graft; E78.5 Hyperlipidemia, unspecified; R05.9 Cough, unspecified; Z87.891 Personal history of nicotine dependence

== ENCOUNTER → 2024-03-01 11:33 | Outpatient (BNVA) | payer MEDICARE, SELFPAY | PROVIDERS: PCP Family Medicine; Visit Provider Family Medicine | DX: I25.10 Atherosclerotic heart disease of native coronary artery without angina pectoris (principal); E78.5 Hyperlipidemia, unspecified; Z95.1 Presence of aortocoronary bypass graft | CPT/HCPCS: 99212 ==

== ENCOUNTER → 2024-03-15 12:39 | Outpatient (BNV) | payer MEDICARE, SELFPAY | PROVIDERS: PCP Family Medicine; Visit Provider Radiology Diagnostic Radiology | DX: R05.9 Cough, unspecified (principal) | CPT/HCPCS: 71046 ==

== ENCOUNTER 2024-03-16 09:59 | Outpatient (AMB) | payer MEDICARE, SELFPAY ==
--- NOTE | 2024-03-16 10:02 | MHC.AM.SUB ---
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 Asking to spread appts out much further due to high cost of copays RN will follow up in the interim Review of Systems Const Reports as per HPI and Reports no additional complaints Physical Exam Vital Signs: Last Vital Signs Pulse 98 03/16/24 10:07 Resp 19 03/16/24 10:07 BP 110/60 03/16/24 10:07 Pulse Ox 98 03/16/24 10:07 Oxygen Delivery Method Room Air 03/16/24 10:07 Const General: cooperative, comfortable and well groomed Nutritional Appearance: average body habitus Orientation/consciousness: patient oriented x3 Limitations: no limitations Neuro General: patient oriented x3 Quality Reporting (2019) Adult ([facility] 138/04/09/[birth year]) Smoking risk assessment performed?: Yes Patient Tobacco Use Status: Former Tobacco user PENDING SALE TO [facility] Medical History (Updated 03/01/24 @ 12:07 by Meño De La Cruz) CAD (coronary artery disease) Borderline hyperlipidemia Umbilical hernia Bloating Borderline diabetes Surgical History H/O colonoscopy Family History Father Angina pectoris Mother Asthma Social History Household Members: Family and None Housing: House Alcohol intake: current Alcohol intake frequency: 3 or more drinks per day Alcohol type: beer Patient Tobacco Use Status: Former Tobacco user Tobacco use type: Cigarette e-Cigarette/Vaping Use: Never Used Second Hand Smoke Exposure: No service: No Current occupational status: retired Current occupational exposures/hazards: No Cognitive needs: No Hearing needs: No Vision needs: No Assessment & Plan Assessment & Plan (1) Alcohol use disorder: Code(s): F10.90 - Alcohol use, unspecified, uncomplicated Category: Medical Plan: patient to start naltrexone 50mg daily--discussed dosing, side effects and goals of treatment RN to follow up via phone call next week to ensure he is tolerating medicaiton will call and schedule follow up appt when ready Medications: New naltrexone take 1/2 tab daily for 3 days then increase to one tab daily 50 mg PO DAILY 30 tabs 0RF
[2024-03-16 10:07] VITALS: BP 110/60; PULSE 98; RESP 19; O2SAT 98
== END 2024-03-16 10:51 | disposition home or self-care (01) ==
PROVIDERS: PCP Family Medicine; Visit Provider Nurse Practitioner Psychiatric/Mental Health
DX: F10.90 Alcohol use, unspecified, uncomplicated (principal)
CPT/HCPCS: 99214

== ENCOUNTER → 2024-03-16 09:59 | Outpatient (BNVA) | payer MEDICARE, SELFPAY | PROVIDERS: PCP Family Medicine; Visit Provider Nurse Practitioner Psychiatric/Mental Health | DX: F10.90 Alcohol use, unspecified, uncomplicated (principal); Z51.81 Encounter for therapeutic drug level monitoring; Z79.899 Other long term (current) drug therapy | CPT/HCPCS: 99212 ==

== ENCOUNTER 2024-04-19 09:49 | Outpatient (REF) | payer MEDICARE, SELFPAY ==
--- NOTE | 2024-04-19 09:51 | PFT_ITS ---
Indication: Cough Spirometry [As he went to FVC 67% pre bronchodilator 71% post bronchodilators; FEV1 3.37 L; FVC 4.71 L. There was a trend response to bronchodilators noted.] Lung Volumes [Total lung capacity 101% predicted] Diffusion Capacity [DLCO 106% predicted] Comparisons [None] Interpretation [There appears to be a partially reversible obstruction suggestive of a diagnosis of asthma or asthma COPD overlap syndrome. There is a trend response to bronchodilators noted and evidence of small airways disease. Lung volumes are normal. Diffusing capacity also within normal limits. Clinical correlation warranted.] MTDD
[2024-04-19 10:35] VITALS: PULSE 70
== END 2024-04-19 09:50 | disposition home or self-care (01) ==
LOC: HO.RESP 09:49
PROVIDERS: Visit Provider Family Medicine
DX: R05.9 Cough, unspecified (principal); Z87.891 Personal history of nicotine dependence
CPT/HCPCS: 94010; 94640; 94727; 94729

== ENCOUNTER → 2024-04-19 09:51 | Outpatient (BNV) | payer MEDICARE, SELFPAY | PROVIDERS: Visit Provider Hospitalist | DX: R05.9 Cough, unspecified (principal) | CPT/HCPCS: 94060; 94727; 94729 ==

== ENCOUNTER 2024-06-02 14:27 | Outpatient (AMB) | payer MEDICARE, SELFPAY ==
--- NOTE | 2024-06-02 14:32 | A.OFFPC_ITS ---
Vital Signs 06/02/24 14:36 Height 5 ft 8 in Weight 185 lb 8 oz BMI 28.2 BP 124/58 L Blood Pressure Location Rt brachial Position Sitting Respiration 16 Pulse 77 Pulse Source Pulse Oximeter Temp 97.7 F Temp Source Oral Pulse Oximetry (%) 98 Oxygen Delivery Method Room Air Intake Visit Reasons: chest pain Intake Note: patient here for follow up for test results of pulmonary function test Vender Required: No Allergies No Known Allergies Allergy (Verified 06/02/24 14:34) Medication List - Last Reconciled 06/02/24 by Yg Mittal MD aspirin 81 mg PO DAILY atorvastatin 80 mg PO DAILY mecobalamin (vitamin B12) 2,000 mcg PO DAILY metoprolol succinate ER 50 mg (2 x 25 mg) PO DAILY multivitamin 1 tab PO DAILY naltrexone 50 mg PO DAILY Tobacco use date assessed: 06/02/24 Fall risk assessment: No Falls in past year Last assessed Fall Risk: 06/02/24 Dental Screening Dental Screen Date: 06/02/24 Did you have a dental visit in the last 12 months?: Yes Did you have a dental problem in the last 6 months where you did not have access to dental care?: No Was dental information given to patient?: Patient has dentist HPI chest pain HPI Details 69 y/o male presents today to f.u chest pain. He had described a cough with irritation/phlegm. Chest x-ray had looked clear. [facility] Medical History (Updated 06/02/24 @ 15:32 by Meño De La Cruz) CAD (coronary artery disease) Borderline hyperlipidemia Umbilical hernia Bloating Borderline diabetes Surgical History H/O colonoscopy Family History Father Angina pectoris Mother Asthma Social History Household Members: Family and None Housing: House Alcohol intake: current Alcohol intake frequency: 3 or more drinks per day Alcohol type: beer Patient Tobacco Use Status: Former Tobacco user Tobacco use type: Cigarette e-Cigarette/Vaping Use: Never Used Second Hand Smoke Exposure: No service: No Current occupational status: retired Current occupational exposures/hazards: No Cognitive needs: No Hearing needs: No Vision needs: No Questionnaire Thrive Questionnaire Date Thrive assessed: 05/28/23 I am a: Patient What is your living situation today?: I have a steady place to live Within the past 12 months, did the food you bought not last and you didn't have the money to get more?: I choose not to answer this question Within the past 12 months, did you worry whether your food would run out before you got money to buy more?: I choose not to answer this question Do you have trouble paying for medicines?: I choose not to answer this question Do you have trouble getting transportation to medical appointments?: No Do you have trouble paying your heating and electricity bill?: I choose not to answer this question Do you have trouble taking care of your child, family member or friend?: No Do you have trouble with day-to-day activities such as bathing, preparing meals, shopping, managing finances, etc.?: No Are you currently unemployed and looking for a job?: No Are you interested in more education?: No Please select the resources that you would like help with: None Currently or been in a relationship where the following occur: I choose not to answer THRIVE Score: 0 IAN-7 AMB Questionnaire IAN-7 Date IAN - 7 assessed: 05/28/23 Source: Developed by Drs. Aman Barth, Alisson Espinosa, Neno Jasso and colleagues, with an educational rufus from [employer]. Review of Systems Const Denies chills, Denies fatigue, Denies fever(s), Denies headache(s) and Denies weakness ENT Denies dizziness and Denies headache(s) Card Denies dyspnea Resp Denies cough, Denies dyspnea, Denies wheezing and Denies other (shortness of breath) Musc Denies numbness and Denies tingling Neuro Denies dizziness, Denies headache(s), Denies numbness, Denies tingling and Denies weakness Psych Denies anxiety and Denies depression Endo Denies fatigue Aller/Immun Denies wheezing Physical exam (Primary Care) Vital Signs: Last Vital Signs Temp 97.7 F 06/02/24 14:36 Pulse 77 06/02/24 14:36 Resp 16 06/02/24 14:36 BP 124/58 L 06/02/24 14:36 Pulse Ox 98 06/02/24 14:36 Oxygen Delivery Method Room Air 06/02/24 14:36 BMI result Body Mass Index 28.2 Tobacco/Smoking Status: Tobacco use Status Tobacco use date assessed 06/02/24 06/02/24 14:38 Patient Tobacco Use Status Former Tobacco user 06/02/24 14:38 Tobacco use type Cigarette 06/02/24 14:38 e-Cigarette/Vaping Use Never Used 06/02/24 14:38 Thrive Assessment: Date of Thrive Assessment Date Thrive assessed 05/28/23 06/02/24 14:38 Currently or been in a relationship where the following occur: I choose not to answer Const General: well developed; No acute distress Nutritional Appearance: well nourished Orientation/consciousness: patient oriented x3 HENMT Head: Yes normocephalic and Yes atraumatic Eyes General: appearance normal, both eyes and all related structures Pupils: Equal, round and reactive pupils present EOM: EOMs intact bilaterally Resp Effort & Inspection: normal respiratory effort Auscultation: clear to auscultation bilaterally Cardio Rate: regular rate Rhythm: regular rhythm Heart sounds: S1 normal heart sound present, S2 normal heart sound present, no gallops, no murmurs and no rubs Neuro General: patient oriented x3 and gait normal Cranial nerves: Yes Equal, round and reactive pupils present Psych Affect: normal affect Coding Level of Care Code Est Pt Level 3 (63824) Diagnoses Cough R05.9 Cough variant asthma J45.991 Assessment & Plan Assessment & Plan (1) Cough: Code(s): R05.9 - Cough, unspecified Category: Medical (2) Cough variant asthma: Code(s): J45.991 - Cough variant asthma Category: Medical Plan Ongoing?cough. Chest?x-ray?clear Pulmonary?function?test suggestive?of?asthma?COPD?overlap?or?asthma. Possible?cough Will?trial Advair?and?will?give?him?a?Ventolin?inhaler Follow-up?in?4?6?weeks.??If?not?improving?refer?to?pulmonology Medications: New fluticasone propion-salmeterol 115-21 mcg/actuation (Advair HFA) 2 puffs inhalation Q12H 30 days 12 grams 3RF albuterol sulfate 90 mcg/actuation (Ventolin HFA) 2 puffs inhalation Q4-6H 30 days PRN 8.5 grams 2RF shortness of breath or wheezing
[2024-06-02 14:36] VITALS: BP 124/58; PULSE 77; RESP 16; TEMP 36.5; O2SAT 98; BMI 28.2
== END 2024-06-02 15:38 | disposition home or self-care (01) ==
LOC: HO.HMCFM 14:28
PROVIDERS: Visit Provider Family Medicine
DX: R05.9 Cough, unspecified (principal); J45.991 Cough variant asthma

== ENCOUNTER → 2024-06-02 14:27 | Outpatient (BNVA) | payer MEDICARE, SELFPAY | PROVIDERS: Visit Provider Family Medicine | DX: J45.991 Cough variant asthma (principal); R05.9 Cough, unspecified | CPT/HCPCS: 99212 ==

== ENCOUNTER 2024-06-20 09:40 | Outpatient (AMB) | payer MEDICARE, SELFPAY ==
[2024-06-20 09:43] VITALS: BP 130/84; PULSE 67; BMI 28.2
--- NOTE | 2024-06-20 09:43 | A.OFFVIS_ITS ---
Vital Signs 06/20/24 09:43 Height 5 ft 8 in Weight 185 lb 3.013 oz BMI 28.2 BP 130/84 Blood Pressure Location Lt brachial Position Sitting Pulse 67 Intake Visit Reasons: 3 mth fu r/s Intake Note: Follow-up feeling good Security Assessor Required: No Allergies No Known Allergies Allergy (Verified 06/02/24 14:34) Medication List - Last Reconciled 06/20/24 by Richar Lynn MD albuterol sulfate 90 mcg/actuation (Ventolin HFA) 2 puffs inhalation Q4-6H PRN 30 days aspirin 81 mg PO DAILY atorvastatin 80 mg PO DAILY mecobalamin (vitamin B12) 2,000 mcg PO DAILY metoprolol succinate ER 50 mg PO DAILY multivitamin 1 tab PO DAILY HPI Comments Details: Emiliano comes for follow-up. He complains of some symptoms of orthostatic lightheadedness. Otherwise he is overall doing well. He has been exercising. Denies any exertional chest pain or shortness of breath. Denies any orthopnea, PND, leg edema. Takes all his medications. Denies any prolonged palpitation irregular heartbeat. [facility] Medical History (Updated 06/20/24 @ 10:14 by Richar Lynn MD) Exertional angina CAD (coronary artery disease) Borderline hyperlipidemia Umbilical hernia Bloating Borderline diabetes Surgical History (Updated 06/20/24 @ 10:14 by Richar Lynn MD) S/P CABG x 3 H/O colonoscopy Family History Father Angina pectoris Mother Asthma Social History Household Members: Family and None Housing: House Alcohol intake: current Alcohol intake frequency: 3 or more drinks per day Alcohol type: beer Patient Tobacco Use Status: Former Tobacco user Tobacco use type: Cigarette e-Cigarette/Vaping Use: Never Used Second Hand Smoke Exposure: No service: No Current occupational status: retired Current occupational exposures/hazards: No Cognitive needs: No Hearing needs: No Vision needs: No Review of Systems Const Denies chills, Denies fatigue, Denies fever(s), Denies frequent falls, Denies weakness, Denies weight gain and Denies weight loss ENT Denies dizziness Card Denies chest pain, Denies leg edema, Denies lightheadedness, Denies palpitatio ns, Denies dyspnea, Denies dyspnea on exertion, Denies orthopnea and Denies other (loss of consciousness) Resp Denies cough, Denies dyspnea and Denies dyspnea on exertion GI Denies hematochezia and Denies change in stool character Musc Denies abnormal gait, Denies muscle weakness, Denies numbness, Denies radiating pain into limb and Denies tingling Neuro Denies abnormal gait, Denies dizziness, Denies frequent falls, Denies numbness, Denies tingling and Denies weakness Endo Denies fatigue and Denies palpitations Physical Exam Vital Signs: Last Vital Signs Pulse 67 06/20/24 09:43 BP 130/84 06/20/24 09:43 BMI result Body Mass Index 28.2 Const General: cooperative, comfortable, no acute distress, alert and Physically active Nutritional Appearance: average body habitus Orientation/consciousness: patient oriented x3 Neck Neck: Yes trachea midline, Yes supple and Yes no JVD Chest Chest palpation & inspection: other (Well-healed sternotomy scar) Resp Effort & Inspection: normal respiratory effort Auscultation: clear to auscultation bilaterally Cardio Jugular venous distension: no JVD Palpation: normal PMI Rate: regular rate Rhythm: regular rhythm Heart sounds: S1 normal heart sound present, S2 normal heart sound present, no click, no gallops, no murmurs and no rubs GI Auscultation: normal bowel sounds Skin General skin exam: no rashes or lesions noted Neuro General: patient oriented x3 and no focal motor deficits Extrem General: Yes no clubbing, cyanosis or edema Assessment & Plan Assessment & Plan (1) CAD (coronary artery disease): Code(s): I25.10 - Atherosclerotic heart disease of [place] coronary artery without angina pectoris Category: Medical Plan: CAD status post surgical revascularization. Patient was doing very well from that perspective. Continue aggressive medical therapy. Advised to continue aspirin for life. Continue high-intensity statin therapy for life with well optimized LDL at 53 mg/dL. Blood pressure is currently well optimized encouraged to continue with metoprolol therapy. I have advised him to continue to participate in physical activity as tolerated. (2) Orthostatic dizziness: Code(s): R42 - Dizziness and giddiness Plan: Orthostatic dizziness related to probably low oral intake of fluids. Encouraged to increase water intake. Orthostatic precautions were discussed. Mechanism of orthostatic hypertension was discussed. Understands agrees. Avoidance of alcohol was discussed. Will follow up in the clinic in ventricular 6 months time, sooner p.r.n.. Coding Level of Care Code Est Pt Level 4 (20517) Complex EM visit Add On G2211 Diagnoses CAD (coronary artery disease) I25.10 Orthostatic dizziness R42
== END 2024-06-20 10:10 | disposition home or self-care (01) ==
LOC: HO.HCS 09:40
PROVIDERS: PCP Family Medicine; Visit Provider Internal Medicine Cardiovascular Disease
DX: I25.10 Atherosclerotic heart disease of native coronary artery without angina pectoris (principal); R42 Dizziness and giddiness
CPT/HCPCS: 99214; G2211

== ENCOUNTER → 2024-06-20 09:40 | Outpatient (BNVA) | payer MEDICARE, SELFPAY | PROVIDERS: PCP Family Medicine; Visit Provider Internal Medicine Cardiovascular Disease | DX: I25.10 Atherosclerotic heart disease of native coronary artery without angina pectoris (principal); R42 Dizziness and giddiness | CPT/HCPCS: 99212 ==

== ENCOUNTER 2024-07-01 11:01 | Outpatient (AMB) | payer MEDICARE, SELFPAY ==
[2024-07-01 11:06] VITALS: PULSE 77; O2SAT 98; BMI 28.6
--- NOTE | 2024-07-01 11:06 | MHC.OFFVIS ---
Vital Signs 07/01/24 11:06 Height 5 ft 8 in Weight 188 lb BMI 28.6 Pulse 77 Pulse Source Pulse Oximeter Pulse Oximetry (%) 98 Oxygen Delivery Method Room Air Intake Visit Reasons: MAT Allergies No Known Allergies Allergy (Verified 07/01/24 11:06) HPI HPI MAT: Details: He is here for AUD followup. He still is drinking six pack a day beer and hasnt started Naltrexone yet. He takes MVI daily. He has no complaints. [facility] Medical History Exertional angina CAD (coronary artery disease) Borderline hyperlipidemia Umbilical hernia Bloating Borderline diabetes Surgical History S/P CABG x 3 H/O colonoscopy Family History Father Angina pectoris Mother Asthma Social History Household Members: Family and None Housing: House Alcohol intake: current Alcohol intake frequency: 3 or more drinks per day Alcohol type: beer Patient Tobacco Use Status: Former Tobacco user Tobacco use type: Cigarette e-Cigarette/Vaping Use: Never Used Second Hand Smoke Exposure: No service: No Current occupational status: retired Current occupational exposures/hazards: No Cognitive needs: No Hearing needs: No Vision needs: No Review of Systems Const All systems reviewed & are unremarkable except as noted in HPI and below Physical Exam Vital Signs: Last Vital Signs Pulse 77 07/01/24 11:06 Pulse Ox 98 07/01/24 11:06 Oxygen Delivery Method Room Air 07/01/24 11:06 BMI result Body Mass Index 28.6 Const General: cooperative Orientation/consciousness: patient oriented x3 HEENT Head: Yes normal to inspection Mouth: Normal oral and palatal mucosa present Eyes General: appearance normal, both eyes and all related structures Pupils: Equal, round and reactive pupils present Resp Effort & Inspection: normal respiratory effort Cardio Rate: regular rate Rhythm: regular rhythm GI Palpation (GI): Soft to palpation and nontender General: Yes no CVA tenderness Back/Spine/Pelvis Back: no CVA tenderness Skin General skin exam: no rashes or lesions noted Neuro General: patient oriented x3 Cranial nerves: Yes CN's II-XII intact bilaterally and Yes Equal, round and reactive pupils present Extrem General: Yes normal to inspection Psych Appearance: grossly normal Assessment & Plan Assessment & Plan (1) Alcohol use disorder: Comment: He is still drinking and will take Naltrexone when ready. Code(s): F10.90 - Alcohol use, unspecified, uncomplicated Category: Medical Plan: Take Naltrexone when ready. Take MVI and also folic acid 1 mg daily and thiamine 100 mg daily and he says will get this OTC. Followup on any potential liver disease and need for GI per PCP per patient request as us/elastography 2021 shows concern over advancing liver disease. May wish to check PT/INR to calculate liver score and liver fibrosis score as well. I did not make followup appt since not taking naltrexone but happy to see prn need. Coding Level of Care Code Est Pt Level 3 (42095) Diagnoses Alcohol use disorder F10.90
== END 2024-07-01 11:45 | disposition home or self-care (01) ==
LOC: HO.HCC 11:01
PROVIDERS: PCP Family Medicine; Visit Provider Internal Medicine
DX: F10.90 Alcohol use, unspecified, uncomplicated (principal)
CPT/HCPCS: 99213

== ENCOUNTER → 2024-07-01 11:01 | Outpatient (BNVA) | payer MEDICARE, SELFPAY | PROVIDERS: PCP Family Medicine; Visit Provider Internal Medicine | DX: F10.90 Alcohol use, unspecified, uncomplicated (principal); Z51.81 Encounter for therapeutic drug level monitoring; Z79.899 Other long term (current) drug therapy | CPT/HCPCS: 99212 ==

== ENCOUNTER 2024-07-12 09:34 | Outpatient (AMB) | payer MEDICARE, SELFPAY ==
--- NOTE | 2024-07-12 09:48 | A.OFFPC_ITS ---
Vital Signs 07/12/24 09:50 Height 5 ft 8 in Weight 186 lb 8 oz BMI 28.4 BP 128/66 Blood Pressure Location Lt brachial Position Sitting Respiration 16 Pulse 74 Pulse Source Pulse Oximeter Temp 97.9 F Temp Source Oral Pulse Oximetry (%) 99 Oxygen Delivery Method Room Air Intake Visit Reasons: f/u cough Intake Note: patient is scheduled for visit for cough w/pcp Allergies No Known Allergies Allergy (Verified 07/12/24 09:49) Medication List - Last Reconciled 07/12/24 by Yg Mittal MD albuterol sulfate 90 mcg/actuation (Ventolin HFA) 2 puffs inhalation Q4-6H PRN 30 days aspirin 81 mg PO DAILY atorvastatin 80 mg PO DAILY mecobalamin (vitamin B12) 2,000 mcg PO DAILY metoprolol succinate ER 50 mg PO DAILY multivitamin 1 tab PO DAILY Tobacco use date assessed: 07/12/24 Fall risk assessment: No Falls in past year Dental Screening Dental Screen Date: 07/12/24 Did you have a dental visit in the last 12 months?: Yes Did you have a dental problem in the last 6 months where you did not have access to dental care?: No Was dental information given to patient?: No HPI f/u cough HPI Details 69 y/o male presents to f/u cough. PFTs suggestive asthma or asthma COPD overlap. Trialed albuterol inhaler. Pt notes it has improved cough a bit and has been able to bring up secretions. Did not trial advair due to cost. Reports an ongoing cough. Complaints of some constipation. [facility] Medical History Exertional angina CAD (coronary artery disease) Borderline hyperlipidemia Umbilical hernia Bloating Borderline diabetes Surgical History S/P CABG x 3 H/O colonoscopy Family History Father Angina pectoris Mother Asthma Social History Household Members: Family and None Housing: House Alcohol intake: current Alcohol intake frequency: 3 or more drinks per day Alcohol type: beer Patient Tobacco Use Status: Former Tobacco user Tobacco use type: Cigarette e-Cigarette/Vaping Use: Never Used Second Hand Smoke Exposure: No service: No Current occupational status: retired Current occupational exposures/hazards: No Cognitive needs: No Hearing needs: No Vision needs: No Questionnaire Thrive Questionnaire Date Thrive assessed: 07/12/24 I am a: Patient What is your living situation today?: I have a steady place to live Within the past 12 months, did the food you bought not last and you didn't have the money to get more?: I choose not to answer this question Within the past 12 months, did you worry whether your food would run out before you got money to buy more?: I choose not to answer this question Do you have trouble paying for medicines?: I choose not to answer this question Do you have trouble getting transportation to medical appointments?: No Do you have trouble paying your heating and electricity bill?: I choose not to answer this question Do you have trouble taking care of your child, family member or friend?: No Do you have trouble with day-to-day activities such as bathing, preparing meals, shopping, managing finances, etc.?: No Are you currently unemployed and looking for a job?: No Are you interested in more education?: No Please select the resources that you would like help with: None Currently or been in a relationship where the following occur: I choose not to answer THRIVE Score: 0 IAN-7 AMB Questionnaire IAN-7 Date IAN - 7 assessed: 07/12/24 Source: Developed by Drs. Aman Barth, Alisson Espinosa, Neno Jasso and colleagues, with an educational rufus from [employer]. Review of Systems Const Denies chills, Denies fatigue, Denies fever(s), Denies headache(s) and Denies weakness ENT Denies dizziness and Denies headache(s) Card Denies dyspnea Resp Reports cough, Denies dyspnea, Denies wheezing and Denies other (shortness of breath) Musc Denies numbness and Denies tingling Neuro Denies dizziness, Denies headache(s), Denies numbness, Denies tingling and Denies weakness Psych Denies anxiety and Denies depression Endo Denies fatigue Aller/Immun Denies wheezing Physical exam (Primary Care) Vital Signs: Last Vital Signs Temp 97.9 F 07/12/24 09:50 Pulse 74 07/12/24 09:50 Resp 16 07/12/24 09:50 BP 128/66 07/12/24 09:50 Pulse Ox 99 07/12/24 09:50 Oxygen Delivery Method Room Air 07/12/24 09:50 BMI result Body Mass Index 28.4 Tobacco/Smoking Status: Tobacco use Status Tobacco use date assessed 07/12/24 07/12/24 09:52 Patient Tobacco Use Status Former Tobacco user 07/12/24 09:52 Tobacco use type Cigarette 07/12/24 09:52 e-Cigarette/Vaping Use Never Used 07/12/24 09:52 Thrive Assessment: Date of Thrive Assessment Date Thrive assessed 07/12/24 07/12/24 09:52 Currently or been in a relationship where the following occur: I choose not to answer Const General: well developed; No acute distress Nutritional Appearance: well nourished Orientation/consciousness: patient oriented x3 HENMT Head: Yes normocephalic and Yes atraumatic Eyes General: appearance normal, both eyes and all related structures Pupils: Equal, round and reactive pupils present EOM: EOMs intact bilaterally Resp Effort & Inspection: normal respiratory effort Auscultation: clear to auscultation bilaterally Cardio Rate: regular rate Rhythm: regular rhythm Heart sounds: S1 normal heart sound present, S2 normal heart sound present, no gallops, no murmurs and no rubs Neuro General: patient oriented x3 and gait normal Cranial nerves: Yes Equal, round and reactive pupils present Psych Affect: normal affect Coding Diagnoses Cough R05.9 Constipation K59.00 Assessment & Plan Assessment & Plan (1) Cough: Code(s): R05.9 - Cough, unspecified Category: Medical (2) Constipation: Code(s): K59.00 - Constipation, unspecified Category: Medical Medications: New fluticasone propion-salmeterol 250-50 mcg/dose (Wixela Inhub) 1 inh inhalation Q12H 30 days 60 ea 3RF
[2024-07-12 09:50] VITALS: BP 128/66; PULSE 74; RESP 16; TEMP 36.6; O2SAT 99; BMI 28.4
--- NOTE | 2024-07-12 10:21 | A.OFFPC_ITS ---
Vital Signs 07/12/24 09:50 Height 5 ft 8 in Weight 186 lb 8 oz BMI 28.4 BP 128/66 Blood Pressure Location Lt brachial Position Sitting Respiration 16 Pulse 74 Pulse Source Pulse Oximeter Temp 97.9 F Temp Source Oral Pulse Oximetry (%) 99 Oxygen Delivery Method Room Air Intake Visit Reasons: f/u cough Allergies No Known Allergies Allergy (Verified 07/12/24 09:49) Medication List - Last Reconciled 07/12/24 by Yg Mittal MD albuterol sulfate 90 mcg/actuation (Ventolin HFA) 2 puffs inhalation Q4-6H PRN 30 days aspirin 81 mg PO DAILY atorvastatin 80 mg PO DAILY mecobalamin (vitamin B12) 2,000 mcg PO DAILY metoprolol succinate ER 50 mg PO DAILY multivitamin 1 tab PO DAILY Tobacco use date assessed: 07/12/24 Dental Screening Dental Screen Date: 07/12/24 Did you have a dental visit in the last 12 months?: Yes Did you have a dental problem in the last 6 months where you did not have access to dental care?: No Was dental information given to patient?: No PFSH Medical History Exertional angina CAD (coronary artery disease) Borderline hyperlipidemia Umbilical hernia Bloating Borderline diabetes Surgical History S/P CABG x 3 H/O colonoscopy Family History Father Angina pectoris Mother Asthma Social History Household Members: Family and None Housing: House Alcohol intake: current Alcohol intake frequency: 3 or more drinks per day Alcohol type: beer Patient Tobacco Use Status: Former Tobacco user Tobacco use type: Cigarette e-Cigarette/Vaping Use: Never Used Second Hand Smoke Exposure: No service: No Current occupational status: retired Current occupational exposures/hazards: No Cognitive needs: No Hearing needs: No Vision needs: No Questionnaire Thrive Questionnaire Date Thrive assessed: 07/12/24 I am a: Patient What is your living situation today?: I have a steady place to live Within the past 12 months, did the food you bought not last and you didn't have the money to get more?: I choose not to answer this question Within the past 12 months, did you worry whether your food would run out before you got money to buy more?: I choose not to answer this question Do you have trouble paying for medicines?: I choose not to answer this question Do you have trouble getting transportation to medical appointments?: No Do you have trouble paying your heating and electricity bill?: I choose not to answer this question Do you have trouble taking care of your child, family member or friend?: No Do you have trouble with day-to-day activities such as bathing, preparing meals, shopping, managing finances, etc.?: No Are you currently unemployed and looking for a job?: No Are you interested in more education?: No Please select the resources that you would like help with: None Currently or been in a relationship where the following occur: I choose not to answer THRIVE Score: 0 IAN-7 AMB Questionnaire IAN-7 Date IAN - 7 assessed: 07/12/24 Source: Developed by Drs. Aman Barth, Alisson Espinosa, Neno Jasso and colleagues, with an educational rufus from [employer]. Physical exam (Primary Care) Vital Signs: Last Vital Signs Temp 97.9 F 07/12/24 09:50 Pulse 74 07/12/24 09:50 Resp 16 07/12/24 09:50 BP 128/66 07/12/24 09:50 Pulse Ox 99 07/12/24 09:50 Oxygen Delivery Method Room Air 07/12/24 09:50 BMI result Body Mass Index 28.4 Tobacco/Smoking Status: Tobacco use Status Tobacco use date assessed 07/12/24 07/12/24 10:22 Patient Tobacco Use Status Former Tobacco user 07/12/24 10:22 Tobacco use type Cigarette 07/12/24 10:22 e-Cigarette/Vaping Use Never Used 07/12/24 10:22 Thrive Assessment: Date of Thrive Assessment Date Thrive assessed 07/12/24 07/12/24 10:22 Currently or been in a relationship where the following occur: I choose not to answer Coding Level of Care Code Est Pt Level 4 (28206) Diagnoses Cough R05.9 Constipation K59.00 Dizziness R42 Assessment & Plan Assessment & Plan (1) Cough: Code(s): R05.9 - Cough, unspecified Category: Medical Plan: Ongoing?cough Patient?tried?albuterol?yesterday?and?says?he?was?able?to?bring?up?some?secretio ns?and?felt?a?little?better. He?did?not?pick?of?Advair?as?he?says?the?cost?was?too?much?(60?dollars?per?month ) Will?have?him?try?Wixela?to?see?if?this?is?cheaper If?he?is?not?able?to?get?this?either,?he?will?try?the?albut chele?twice?a?day?and?follow-up?with?me?in?1-2?months. (2) Constipation: Code(s): K59.00 - Constipation, unspecified Category: Medical Plan: Patient?struggles?with?some?constipation Does?not?drink?much?water?and?I?encouraged?him?to?increase?this He?can?also?try?soluble?fiber?tablets?like?FiberCon?more?can?try?Metamucil (3) Dizziness: Code(s): R42 - Dizziness and giddiness Category: Medical Plan: Had?been?seen?by?Cardiology?and?they?felt?this?was?primarily?due?to?dehydration? and?mild?orthostasis As?above,?encouraged?increase?hydration Medications: New fluticasone propion-salmeterol 250-50 mcg/dose (Wixela Inhub) 1 inh inhalation Q12H 30 days 60 ea 3RF
== END 2024-07-12 10:32 | disposition home or self-care (01) ==
LOC: HO.HMCFM 09:35
PROVIDERS: PCP Family Medicine; Visit Provider Family Medicine
DX: R05.9 Cough, unspecified (principal); K59.00 Constipation, unspecified; R42 Dizziness and giddiness

== ENCOUNTER → 2024-07-12 09:34 | Outpatient (BNVA) | payer MEDICARE, SELFPAY | PROVIDERS: PCP Family Medicine; Visit Provider Family Medicine | DX: R42 Dizziness and giddiness (principal); K59.00 Constipation, unspecified; R05.9 Cough, unspecified | CPT/HCPCS: 96127; 99212 ==

== ENCOUNTER 2024-09-15 10:34 | Outpatient (AMB) | payer MEDICARE, SELFPAY ==
--- NOTE | 2024-09-15 11:10 | MHC.PC.OV ---
Vital Signs 09/15/24 11:12 Height 5 ft 8 in Weight 190 lb BMI 28.9 BP 120/70 Blood Pressure Location Rt brachial Position Sitting Respiration 14 Pulse 76 Pulse Source Pulse Oximeter Temp 98.2 F Temp Source Oral Pulse Oximetry (%) 97 Oxygen Delivery Method Room Air Intake Visit Reasons: f/u cough Intake Note: patient is scheduled to follow up on cough Statistician Mathematical Required: No Allergies No Known Allergies Allergy (Verified 09/15/24 11:11) Medication List - Last Reconciled 09/15/24 by Yg Mittal MD albuterol sulfate 90 mcg/actuation (Ventolin HFA) 2 puffs inhalation Q4-6H PRN 30 days aspirin 81 mg PO DAILY atorvastatin 80 mg PO DAILY fluticasone propion-salmeterol 250-50 mcg/dose (Wixela Inhub) 1 inh inhalation Q12H 30 days mecobalamin (vitamin B12) 2,000 mcg PO DAILY metoprolol succinate ER 50 mg PO DAILY multivitamin 1 tab PO DAILY Tobacco use date assessed: 07/12/24 Dental Screening Dental Screen Date: 07/12/24 HPI f/u cough HPI Details 69 y/o male presents to f/u cough. PFTs suggested asthma or asthma COPD overlap. Trialing Wixela. 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 Had been able to afford Wixela and pt notes he had felt an improvement overall. Hx of CAD, elevated liver enzymes, hyperlipidemia. No recent labs to review. [facility] Medical History Exertional angina CAD (coronary artery disease) Borderline hyperlipidemia Umbilical hernia Bloating Borderline diabetes Surgical History S/P CABG x 3 H/O colonoscopy Family History Father Angina pectoris Mother Asthma Social History Household Members: Family and None Housing: House Alcohol intake: current Alcohol intake frequency: 3 or more drinks per day Alcohol type: beer Patient Tobacco Use Status: Former Tobacco user Tobacco use type: Cigarette e-Cigarette/Vaping Use: Never Used Second Hand Smoke Exposure: No service: No Current occupational status: retired Current occupational exposures/hazards: No Cognitive needs: No Hearing needs: No Vision needs: No Questionnaire Thrive Questionnaire Date Thrive assessed: 02/23/24 I am a: Patient What is your living situation today?: I have a steady place to live Within the past 12 months, did the food you bought not last and you didn't have the money to get more?: I choose not to answer this question Within the past 12 months, did you worry whether your food would run out before you got money to buy more?: I choose not to answer this question Do you have trouble paying for medicines?: I choose not to answer this question Do you have trouble getting transportation to medical appointments?: No Do you have trouble paying your heating and electricity bill?: I choose not to answer this question Do you have trouble taking care of your child, family member or friend?: No Do you have trouble with day-to-day activities such as bathing, preparing meals, shopping, managing finances, etc.?: No Are you currently unemployed and looking for a job?: No Are you interested in more education?: No Please select the resources that you would like help with: None Currently or been in a relationship where the following occur: I choose not to answer THRIVE Score: 0 IAN-7 AMB Questionnaire IAN-7 Date IAN - 7 assessed: 07/12/24 Source: Developed by Drs. Aman Barth, Alisson Espinosa, Neno Jasso and colleagues, with an educational rufus from [employer]. Review of Systems Const Denies chills, Denies fatigue, Denies fever(s), Denies headache(s) and Denies weakness ENT Denies dizziness and Denies headache(s) Card Denies dyspnea Resp Reports cough, Denies dyspnea and Denies wheezing Musc Denies numbness and Denies tingling Neuro Denies dizziness, Denies headache(s), Denies numbness, Denies tingling and Denies weakness Psych Denies anxiety and Denies depression Endo Denies fatigue Aller/Immun Denies wheezing Physical exam (Primary Care) Vital Signs: Last Vital Signs Temp 98.2 F 09/15/24 11:12 Pulse 76 09/15/24 11:12 Resp 14 09/15/24 11:12 BP 120/70 09/15/24 11:12 Pulse Ox 97 09/15/24 11:12 Oxygen Delivery Method Room Air 09/15/24 11:12 BMI result Body Mass Index 28.9 Tobacco/Smoking Status: Tobacco use Status Tobacco use date assessed 07/12/24 09/15/24 11:17 Patient Tobacco Use Status Former Tobacco user 09/15/24 11:17 Tobacco use type Cigarette 09/15/24 11:17 e-Cigarette/Vaping Use Never Used 09/15/24 11:17 Thrive Assessment: Date of Thrive Assessment Date Thrive assessed 02/23/24 09/15/24 11:17 Currently or been in a relationship where the following occur: I choose not to answer Const General: well developed; No acute distress Nutritional Appearance: well nourished Orientation/consciousness: patient oriented x3 HENMT Head: Yes normocephalic and Yes atraumatic Eyes General: appearance normal, both eyes and all related structures Pupils: Equal, round and reactive pupils present EOM: EOMs intact bilaterally Resp Effort & Inspection: normal respiratory effort Auscultation: clear to auscultation bilaterally Cardio Rate: regular rate Rhythm: regular rhythm Heart sounds: S1 normal heart sound present, S2 normal heart sound present, no gallops, no murmurs and no rubs Neuro General: patient oriented x3 and gait normal Cranial nerves: Yes Equal, round and reactive pupils present Psych Affect: normal affect Coding Level of Care Code Est Pt Level 4 (56216) Diagnoses Cough R05.9 Hyperlipidemia E78.5 CAD (coronary artery disease) I25.10 Elevated liver enzymes R74.8 Asthma-COPD overlap syndrome J44.89 Assessment & Plan Assessment & Plan (1) Cough: Code(s): R05.9 - Cough, unspecified Category: Medical (2) Hyperlipidemia: Code(s): E78.5 - Hyperlipidemia, unspecified Category: Medical (3) CAD (coronary artery disease): Code(s): I25.10 - Atherosclerotic heart disease of [place] coronary artery without angina pectoris Category: Medical (4) Elevated liver enzymes: Code(s): R74.8 - Abnormal levels of other serum enzymes Category: Medical (5) Asthma-COPD overlap syndrome: Code(s): J44.89 - Other specified chronic obstructive pulmonary disease Category: Medical Plan Subjectively, patient notes significant improvements in his breathing. Still has cough though this seems to be improving slightly. He has only just started the Wixela and continues to use Ventolin as needed. Will have him continue to use these medications He will let me know if the cough does not resolve worsens. History of elevated liver enzymes and patient continues alcohol use. Will recheck liver enzymes. Ultrasound in 2021 showed compensated advanced chronic liver disease by elastography Patient has seen addiction medicine at the [facility]. They had recommended thiamine and folic acid which I will send today Patient is followed by Dr. Narvaez for coronary artery disease. Taking atorvastatin as prescribed. Also aspirin Will check lipids prior to use upcoming appointment Orders: Orders UA CC w/rflx Micro + Cult Today Z00.00 - Encounter for general adult medical examination without abnormal findings Hemoglobin A1c Today R73.01 - Impaired fasting glucose Comprehensive [place]. Panel Fast Today Z00.00 - Encounter for general adult medical examination without abnormal findings Complete Blood Count Auto Diff Today Z00.00 - Encounter for general adult medical examination without abnormal findings Lipid Panel Today Z00.00 - Encounter for general adult medical examination without abnormal findings Microalbumin, Random (w Creat) Today I10 - Essential (primary) hypertension Prostate Specific Antigen Scr Today Z12.5 - Encounter for screening for malignant neoplasm of prostate TSH reflex Free T4 Today Z00.00 - Encounter for general adult medical examination without abnormal findings Medications: New folic acid 1 mg PO DAILY 90 tabs 3RF 90 days thiamine HCl (vitamin B1) 100 mg PO DAILY 30 tabs 3RF 30 days Refilled albuterol sulfate 90 mcg/actuation (Ventolin HFA) 2 puffs inhalation Q4-6H PRN 8.5 grams 4RF shortness of breath or wheezing 30 days
[2024-09-15 11:12] VITALS: BP 120/70; PULSE 76; RESP 14; TEMP 36.8; O2SAT 97; BMI 28.9
== END 2024-09-15 11:45 | disposition home or self-care (01) ==
LOC: HO.HMCFM 10:35
PROVIDERS: PCP Family Medicine; Visit Provider Family Medicine
DX: R05.9 Cough, unspecified (principal); I25.10 Atherosclerotic heart disease of native coronary artery without angina pectoris; E78.5 Hyperlipidemia, unspecified; J44.89 Other specified chronic obstructive pulmonary disease; R74.8 Abnormal levels of other serum enzymes

== ENCOUNTER → 2024-09-15 10:34 | Outpatient (BNVA) | payer MEDICARE, SELFPAY | PROVIDERS: PCP Family Medicine; Visit Provider Family Medicine | DX: R05.9 Cough, unspecified (principal); E78.5 Hyperlipidemia, unspecified; I25.10 Atherosclerotic heart disease of native coronary artery without angina pectoris; R74.8 Abnormal levels of other serum enzymes; J44.89 Other specified chronic obstructive pulmonary disease; Z79.82 Long term (current) use of aspirin; Z79.899 Other long term (current) drug therapy | CPT/HCPCS: 99212 ==

== ENCOUNTER 2024-12-13 08:55 | Outpatient (REF) | payer MEDICARE, SELFPAY ==
[2024-12-13 11:27] LABS: MANUAL DIFF FLAG NO
[2024-12-13 11:36] LABS: Hematocrit 43.8 % (42.0-52.0); Hemoglobin 14.3 g/dl (14.0-18.0); Imm Gran Abs Auto 0.03 X10*3/uL (0.00-0.03); Imm Gran Pct Auto 0.5 % (0.0-0.4); Lymphocytes Absolute Auto 1.7 X10*3/uL (1.2-4.9); Mean Corpuscular HGB Conc 32.6 g/dl (31.0-36.0); Mean Corpuscular Hemoglobin 31.0 pg (27.0-33.0); Mean Corpuscular Volume 95.0 fL (80.0-98.0); NRBC Abs Auto 0.000 X10*3/uL (0.0-0.012); NRBC Pct Auto 0.0 /100WBC (0.0-0.2); Platelet Count 212 X10*3/uL (160-400); Red Blood Count 4.61 X10*6/uL (4.60-5.80); White Blood Count 6.5 X10*3/uL (4.8-10.8)
[2024-12-13 12:00] LABS: Alanine Aminotransferase 37 U/L (0-40); Albumin Level 4.6 g/dL (3.5-5.0); Alkaline Phosphatase 87 U/L (39-117); Anion Gap 10 (12-20); Aspartate Amino Transferase 35 U/L (5-37); Blood Urea Nitrogen 19 mg/dL (9-16); Calcium 9.4 mg/dL (8.4-10.2); Carbon Dioxide 30 mmol/L (22-29); Chloride 107 mmol/L (96-108); Cholesterol 127 mg/dL (<200); Estimated Glomerular Filt Rate > 60; HDL Cholesterol 63 mg/dL (>40); Potassium 4.3 mmol/L (3.3-5.1); Sodium 143 mmol/L (135-145); Total Protein 7.0 g/dL (6.5-8.0); Triglycerides 47 mg/dL (<150)
[2024-12-13 14:16] LABS: Appearance Urine Clear; Glucose Urine UA Negative (Negative); PH 5.5 (5.0-9.0); Specific Gravity - Urine 1.020 (1.005-1.025)
[2024-12-13 14:51] LABS: Microalbum/Creatinine Ratio Ur 6.2 ug/mg cr (<30)
== END 2024-12-13 08:56 | disposition home or self-care (01) ==
LOC: HO.WFDLDS 08:55
PROVIDERS: Visit Provider Family Medicine
DX: Z00.00 Encounter for general adult medical examination without abnormal findings (principal); I10 Essential (primary) hypertension; R73.01 Impaired fasting glucose; Z12.5 Encounter for screening for malignant neoplasm of prostate
CPT/HCPCS: 36415; 80053; 80061; 81003; 82043; 82570; 83036; 84153; 84443; 85025

== ENCOUNTER 2024-12-19 07:55 | Outpatient (AMB) | payer MEDICARE, SELFPAY ==
--- NOTE | 2024-12-19 07:58 | A.OFFVIS_ITS ---
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 Allergies No Known Allergies Allergy (Verified 12/19/24 08:11) Medication List - Last Reconciled 12/19/24 by Nery Person, [facility]- albuterol sulfate 90 mcg/actuation (Ventolin HFA) 2 puffs inhalation Q4-6H PRN 30 days aspirin 81 mg PO DAILY atorvastatin 80 mg PO DAILY fluticasone propion-salmeterol 250-50 mcg/dose (Wixela Inhub) 1 inh inhalation Q12H 30 days folic acid 1 mg PO DAILY 90 days mecobalamin (vitamin B12) 2,000 mcg PO DAILY metoprolol succinate ER 50 mg PO DAILY multivitamin 1 tab PO DAILY thiamine HCl (vitamin B1) 100 mg PO DAILY 30 days Do you need a note to return to daycare/school/sports/work: No HPI HPI Comments History of Present Illness Details Here today for AWV. The Medicare Annual Wellness Visit (AWV) is a yearly appointment with a health professional to identify health risks and help reduce them and to create or update a personalized prevention plan. During a Medicare AWV, health professionals should also review any current opioid prescriptions, detect any cognitive impairment, and establish or update medical and family history. 69-year-old male with ETOH dependence, f ormer smoker, anemia, hyperlipidemia, prostate cancer status post prostatectomy, diverticulosis SurgHx: History?of?prostatectomy? FHx: see below SocHx: as noted in chart Health Maintenance: See scanned preventative medicine assessment with personalized health plan and screening schedule. Colon: History?of?colon?polyps?and?was?advised?to?follow- up?in?5?years?which?would?be?2025 Vaccines Tdap 2024. Has never had PCV vaccines or Shingles, Flu 12/18/24 AAA screen: completed 2023 EKG: NA active w/ Cards 12/13/24 A1c 5.2%, LDL 55,PSA < 0.10 [place] of Care: As noted in chart Visual Acuity:wears glasses, annual eye exams, next one 11/2024. Has cataracts. Hearing Screening: Audiogram completed 2023 has mild loss ACP: HCP has at home, Dtr MADONNA Parker provided previously, edu, encouraged to complete and return Dietary/Nutrition/Exercise Edu provided: Y During the course of the visit the patient was educated and counseled about appropriate screening and preventative services. Patient instructions were provided to the patient in written or electronic format. I have reviewed and ve rified the above information. History of Present Illness The patient is a 69-year-old male presenting for an annual Medicare wellness visit. Coronary artery disease: - The patient has a history of coronary artery disease and is status post coronary artery bypass grafting (CABG) procedure approximately one year ago. - He is managed by cardiology and is on metoprolol, atorvastatin, and aspirin. - Recent labs from 12/13/24 showed an LD L of 55 mg/dL. Alcohol dependence: - The patient has a history of alcohol d ependence and is managed by the [facility]. - He reports that his alcohol consumptio n has not changed and remains the same as the previous year, although he is trying to cut down. - He has been prescribed naltrexone but has not yet started the medication. - He has been taking a multivitamin and was advised to take vitamin B12, thiamin, and folic acid, but has had some confusion regarding correct dosages and availability. History of prostate cancer: - The patient has a history of prostate cancer and is status post prostatectomy. - Recent lab work from 12/13/24 shows a PSA of less than 0.1 ng/mL. Obesity: - The patient has a history of obesity w ith a BMI of 30. - He reports recent weight gain, which h e attributes to changes in his diet, including eating hamburgers, pizza, clark, and larger portions. - He also notes a decrease in exercise o denis the summer but has recently started going back to the gym. Dizziness: - The patient reports occasional episode s of dizziness, which are infrequent. - His operations and intelligence assistant, Dr. Heredia, advised him to stay hydrated. - The patient experienced a small amount of dizziness when changing from a supine to a sitting position during the exam. Past Medical History - Obesity with BMI of 30 - Coronary artery disease - Alcohol dependence - Prostate cancer - Cataracts - High-frequency hearing loss Past Surgical History - Coronary artery bypass grafting (CABG) - Prostatectomy Family History - The patient reports no changes in his family medical history. - He notes that his brother has an unspe cified muscle-related condition. Social History - Alcohol Use: Reports ongoing alcohol u se, stating Nothing's changed. - He is attempting to reduce his intake. - Tobacco Use: He is a former smoker and quit around 1997 or 1998. - Diet: Reports his diet has changed and he has been eating hamburgers, pizza, and clark, with increased portion sizes. - Exercise: He was not exercising during the summer but has recently rejoined the [employer] and started using the [employer]. - Advance Directives: His daughter, Samantha Hermosillo, is designated as his healthcare proxy. - He has not made a decision regarding a Do Not Resuscitate (DNR) order. Health Maintenance - Lab results from 12/13/2024 were revie wed and noted to be excellent: A1c 5.2%, LDL 55 mg/dL, and PSA < 0.1 ng/mL. - Liver enzymes were noted to be complet alejandra normal. - Hearing Exam: The patient completed a hearing exam, which showed predictable high-tone hearing loss. - Eye Exam: An annual in-office eye exam was completed in November 2024, confirming cataracts that are not yet considered severe enough for removal. - Immunizations: The patient is due for pneumococcal and shingles vaccines. - He consented to and will receive a flu shot and Tdap vaccine during today's visit. - Advance Care Planning: The patient has designated his daughter, Samantha Hermosillo, as his healthcare proxy. - He has not yet made a decision on a DN R or completed MOLST forms and was counseled on the importance of discussing his wishes with his proxy. Review of Systems - Constitutional: Reports feeling good. - Reports recent weight gain. - Neurological: Reports occasional, infr equent dizziness. - GI/: Reports normal bowel and bladde r function. - Denies abdominal pain. - HEENT: Reports some dry mouth. - Extremities: Denies any noticeable swe lling in his ankles. Physical Exam General: Well developed, well nourished, in no acute distress. Appears stated age. Head: Normocephalic, atraumatic. Eyes: Pupils are equal, round and reactive to light and accommodation. Conjunctivae are clear. Scleras nonicteric bilat. Vision grossly normal. Last eye exam in November 2024. Ears: TMs clear AU, EACS WNL. Hearing exam completed with predictable high tones loss. Nose: Patent, without discharge. Neck: No carotid bruit bilat. Supple, no adenopathy or thyromegaly. Breast: Edu on SBE Lungs: Clear to auscultation bilaterally. No rales, rhonchi or wheeze noted. Good air flow in all bray. Heart: Regular rate and rhythm. No murmurs, click, rubs or gallops are noted. Abdomen: Bowel sounds present in all quadrants. The abdomen is soft, nontender, with no masses or organomegaly noted. No hernias are noted. : Deferred. Reviewed SILVIA & recommendations Pulses: Peripheral pulses are equal and palpable bilaterally. Extremities: No clubbing, cyanosis nor edema is noted. Occasional dizziness noted, advised to increase fluid intake. Neurologic: Gait and station normal. Cranial Nerves 2-12 intact. Motor strength grossly symmetrical and intact. No sensory loss. Balance normal. Skin: No rashes, ulcers, or lesions noted. Turgor is good. Skin color is good. Hair and nails are without abnormalities. Psych: Normal eye contact, affect and mood appropriate, and normal interactions. Patient is alert and appropriate to context. Results - Labs from 12/13/24: A1c 5.2%, LDL 55 m g/dL, PSA < 0.1 ng/mL. - Liver enzymes were normal. - Hearing Exam: Results show predictable high-tone hearing loss. Medical Decision Making The patient is a 69-year-old male here for his annual Medicare wellness visit. His past medical history is significant for coronary artery disease s/p CABG, prostate cancer s/p prostatectomy, alcohol dependence, and obesity. His cardiac and prostate conditions are stable, as evidenced by a recent LDL of 55 and an undetectable PSA. The patient's alcohol dependence is an ongoing concern, though he is engaged with the [facility] and has naltrexone available when he is ready to start. His vitamin supplementation regimen was reviewed and clarified. His occasional dizziness is likely multifactorial, potentially related to his medications and hydration status, which is impacted by alcohol use; increased fluid intake was recommended. Health maintenance was a primary focus of the visit. The patient's recent weight gain was discussed, which he attributes to diet and a lapse in exercise, and he is taking steps to address this. He is receiving his flu and Tdap immunizations today and was advised to obtain the pneumococcal and shingles vaccines at a pharmacy. Advance care planning was also addressed; his healthcare proxy is established, and he was encouraged to formalize his wishes on a MOLST form. A follow-up visit is scheduled in 3-4 months to monitor his chronic conditions. Plan 1. Annual Wellness Visit - Administer influenza and Tdap immuniza tions in the office today. - Advised patient to obtain the pneumoco ccal and shingles vaccines at his convenience from a pharmacy. - Discussed advance directives, confirmroberto ng his daughter, Samantha Hermosillo, as his healthcare proxy. - Counseled on the importance of complet ing the MOLST/DNR form and discussing his wishes with his proxy. - Patient to schedule a follow-up appoin tment in 3-4 months for management of chronic conditions. 2. Alcohol Dependence - Continue management with the [facility]. - Clarified supplement dosages: take vit roa B12 2000 mcg daily, Thiamin (B1) 100 mg daily, and Folic Acid 1 mg daily. - Patient has a prescription for naltrex one and is encouraged to start it when he feels ready. 3. Coronary Artery Disease - Condition is stable with an LDL of 55 mg/dL. - Continue current medications including metoprolol, atorvastatin, and aspirin. - Continue follow-up with cardiology. 4. Dizziness - The patient was advised to increase hi s fluid intake to manage dizziness, as recommended by his operations and intelligence assistant, which may be related to orthostatic changes or dehydration. 5. Obesity - The patient acknowledged recent weight gain due to dietary indiscretion and a lapse in physical activity. - Encourage the patient to continue with his renewed efforts at regular exercise and dietary modification. Patient Instructions - You will receive your flu shot and tet anus (Tdap) shot today in the office. - Please get the pneumococcal and shingl es vaccines at your local pharmacy when you can. - Take your vitamins as discussed: Vitam in B12 should be 2,000 mcg per day, and Thiamin should be 100 mg per day. - Continue to drink plenty of fluids, es pecially water, to help with the occasional dizziness. - Continue your efforts to get back to r egular exercise at the gym. - It is very important to have a discuss ion with your daughter, Samantha, about your end-of-life wishes. - Please schedule a follow-up appointmen t in about 3 to [address] Arelis burden to f/u on chronic conditions. Consent The patient provided verbal consent for the administration of the influenza and Tdap vaccines during the visit. A discussion was held regarding advance care planning, including the role of a healthcare proxy and the MOLST/DNR form, but no documents were signed today. The patient confirmed he has designated his daughter, Samantha Hermosillo, as his healthcare proxy. Patient was informed and verbally consented to the use of an ambient scribe for clinic note documentation during this visit. An additional 20 minutes was spent addressing the problem(s) noted at todays visit. This includes time spent before the visit reviewing the chart, time spent during the visit, and time spent after the visit on documentation reviewing laboratory results, diagnostic imaging, medications, performing a medically necessary evaluation, counseling on diagnoses, care coordination, ordering appropriate tests, ordering appropriate medications, review of tests performed by other providers, reporting test results with the patient, communication with other healthcare providers. [facility] Medical History Exertional angina CAD (coronary artery disease) Borderline hyperlipidemia Umbilical hernia Bloating Borderline diabetes Surgical History S/P CABG x 3 H/O colonoscopy Family History Father Angina pectoris Mother Asthma Social History Household Members: Family and None Housing: House Alcohol intake: current Alcohol intake frequency: 3 or more drinks per day Alcohol type: beer Patient Tobacco Use Status: Former Tobacco user Tobacco use type: Cigarette e-Cigarette/Vaping Use: Never Used Second Hand Smoke Exposure: No service: No Current occupational status: retired Current occupational exposures/hazards: No Cognitive needs: No Hearing needs: No Vision needs: No Questionnaire Medicare Wellness Checkup What [age] your [age]?: 65-70 What gender do you identify with?: male During the past 4 weeks, how much have you been bothered by emotional problems such as feeling anxious, depressed, irritable, sad or downhearted, and blue?: not at all During the past 4 weeks, has your physical & emotional health limited your social activities with family, friends, neighbors, or groups?: not at all During the past 4 weeks, how much bodily pain have you generally had?: no pain During the past 4 weeks, was someone available to help you if you needed & wanted help?: yes, as much as I wanted During the past 4 weeks, what was the hardest physical activity you could do for at least 2 minutes?: moderate Can you get to places out of walking distance without help? (For eg., can you travel alone on buses, taxis or drive your car?): Yes Can you go shopping for groceries or clothes without someone's help?: Yes Can you prepare your own meals?: Yes Can you do your housework without help?: Yes Because of any health problems, do you need the help of another person with your personal care needs such as eating, bathing, dressing or getting around the house?: No Can you handle your own money without help?: Yes During the past 4 weeks, how would you rate your health in general?: good During the past 4 weeks how have things been going for you?: pretty well Are you having difficulties driving your car?: no Do you always fasten your seat belt when you are in a car?: yes, usually During past 4 weeks, have you been bothered by the following: never: Sexual problems?, Trouble eating well?, Teeth or denture problems?, Problems using the telephone? and Tiredness or fatigue? and sometimes: Falling or dizzy when standing up Have you fallen 2 or more times in the past year?: No Are you afraid of falling?: No Are you a smoker?: no During the past 4 weeks, how many drinks of wine, beer, or other alcoholic beverages did you have?: 10 or more per week Do you exercise for about 20 minutes 3 or more times a week?: yes, some of the time Have you been given information to help with the following?: no: Hazards in your house that might hurt you? and no: Keeping track of your medications? How often do you have trouble taking medicines the way you have been told to take them?: I always take medicine as prescribed How confident are you that you can control & manage most of your health problems?: very confident What is your race?: White Activity of Daily Living Bathing - sponge bath, tub bath or shower: receives no assistance (gets in/out by self, if usual bathing means Dressing - getting clothes from closets & drawers, including inner/outer garments & fasteners.: gets clothes & gets completely dressed without help Toileting - going to the 'toilet room' for urine/bowel elimination & cleaning self/arranging clothes: goes to toilet room, cleans self, arranges clothes without help Transfer: moves in & out of bed and chair without help (may use support object) Continence: controls urination/bowel movements completely by self Feeding: feeds self without help Total Score: 0 Information obtained from: patient Using telephone: independent Traveling: independent Shopping: independent Preparing meals: independent Housework: independent Taking medicine: independent Managing money: independent PHQ-9 Over the last 2 weeks, how often have you been bothered by any of the following problems? 1. Little interest or pleasure in doing things: not at all 2. Feeling down, depressed, or hopeless: not at all 3. Trouble falling or staying asleep, or sleeping too much: not at all 4. Feeling tired or having little energy: not at all 5. Poor appetite or overeating: not at all 6. Feeling bad about yourself - or that you are a failure or have let yourself or your family down: not at all 7. Trouble concentrating on things, such as reading the newspaper or watching television: not at all 8. Moving or speaking so slowly that other people could have noticed. Or the opposite - being so fidgety or restless that you have been moving around a lot more than usual: not at all 9. Thoughts that you would be better off or of hurting yourself in some way: not at all Total score: 0 Depression Screening Interpretation: Negative Depression Screening Done: Yes 19016 - PHQ-9 Billing: Yes Source: Developed by Drs. Aman Barth, Alisson Espinosa, Neno Jasso and colleagues, with an educational rufus from [employer]. Office Procedures Vision Screening Right Eye: 20/40 Left Eye: 20/30 Bilateral: 20/30 Color: Pass [id number] - Vision Screening Assessment & Plan Assessment & Plan (1) Encounter for subsequent annual wellness visit (AWV) in Medicare patient: Onset Date: ~12/19/24 Code(s): Z00.00 - Encounter for general adult medical examination without abnormal findings (2) ACP (advance care planning): Code(s): Z71.89 - Other specified counseling (3) Obesity (BMI 30-39.9): Code(s): E66.9 - Obesity, unspecified (4) Influenza vaccination administered at current visit: Onset Date: ~12/19/24 Code(s): Z23 - Encounter for immunization (5) Prostate cancer: Comment: s/p prostatectomy Code(s): C61 - Malignant neoplasm of prostate (6) Need for Tdap vaccination: Onset Date: ~12/19/24 Code(s): Z23 - Encounter for immunization (7) History of prostatectomy: Code(s): Z90.79 - Acquired absence of other genital organ(s) (8) Alcohol use disorder: Comment: He is still drinking and will take Naltrexone when ready. Code(s): F10.90 - Alcohol use, unspecified, uncomplicated (9) Former smoker: Code(s): Z87.891 - Personal history of nicotine dependence Plan . Patient Instructions: Health screenings for men You should visit your health care provider regularly, even if you feel healthy. The purpose of these visits is to: Screen for medical issues Assess your risk for future medical problems Encourage a healthy lifestyle Update vaccinations and other preventive care services Help you get to know your provider in case of an illness Information Even if you feel fine, you should still see your provider for regular checkups. These visits can help you avoid problems in the future. For example, the only way to find out if you have high blood pressure is to have it checked regularly. High blood sugar and high cholesterol level also may not have any symptoms in the early stages. Simple blood tests can check for these conditions. There are specific times when you should see your provider or receive specific health screenings. The [place] Preventive Services Task Force publishes a list of recommended screenings. Below are screening guidelines for men ages 40 to 64. BLOOD PRESSURE SCREENING Have your blood pressure checked at least once every year. Watch for blood pressure screenings in your area. Ask your provider if you can stop in to have your blood pressure checked. Ask your provider if you need your blood pressure checked more often if: You have diabetes, heart disease, kidney problems, or are overweight or have certain other health conditions You have a first-degree relative with high blood pressure You are Black Your blood pressure top number is from 120 to 129 mm Hg, or the bottom number is from 70 to 79 mm Hg If the top number is 130 mm Hg or greater or the bottom number is 80 mm Hg or greater, this is considered stage 1 hypertension. Schedule an appointment with your provider to learn how you can lower your blood pressure. Effects of age on blood pressure CHOLESTEROL SCREENING Cholesterol screening should begin at age 35 for men with no known risk factors for coronary heart disease. Repeat cholesterol screening should take place: Every 5 years for men with normal cholesterol levels More often if changes occur in lifestyle (including weight gain and diet) More often if you have diabetes, heart disease, kidney problems, or certain other conditions COLORECTAL CANCER SCREENING If you are under age 45, talk to your provider about getting screened. You may need to be screened if you have a strong family history of colon cancer or polyps. Screening may also be considered if you have risk factors such as a history of inflammatory bowel disease or polyps. If you are age 45 to 75, you should be screened for colorectal cancer. There are several screening tests available: A stool-based fecal occult blood (gFOBT) or fecal immunochemical test (FIT) every year A stool sDNA test every 1 to 3 years Flexible sigmoidoscopy every 5 years or every 10 years with stool testing FIT done every year CT colonography (virtual colonoscopy) every 5 years Colonoscopy every 10 years You may need a colonoscopy more often if you have risk factors for colorectal cancer, such as: Ulcerative colitis A personal or family history of colorectal cancer A history of growths in your colon called adenomatous polyps DENTAL EXAM Go to the dentist once or twice every year for an exam and cleaning. Your dentist will evaluate if you have a need for more frequent visits. DIABETES SCREENING All adults who do not have risk factors for diabetes should be screened starting at age 35 and repeated every 3 years. If you have other risk factors for diabetes, such as a first degree relative with diabetes, overweight or obesity, high blood pressure, prediabetes, or a history of heart disease, you may be tested more often. If you are overweight and have other risk factors, such as high blood pressure and are planning to become , screening is recommended. EYE EXAM Have an eye exam every 2 to 4 years ages 40 to 54 and every 1 to 3 years ages 55 to 64. Your provider may recommend more frequent eye exams if you have vision problems or glaucoma risk. Have an eye exam that includes an examination of your retina (back of your eye) at least every year if you have diabetes. IMMUNIZATIONS Commonly needed vaccines include: Flu shot: get one every year COVID-19 vaccine: ask your provider what is best for you Tetanus-diphtheria and acellular pertussis (Tdap) vaccine: have as one of your tetanus-diphtheria vaccines if you did not receive it as an adolescent Tetanus-diphtheria: have a booster (or Tdap) every 10 years Varicella vaccine: receive 2 doses if you never had chickenpox or the varicella vaccine and were born in 1979 or after Hepatitis B vaccine: receive 2, 3, or 4 doses, depending on your exact circumstances, if you did not receive these as a child or adolescent, until age 59 Shingles (herpes zoster) vaccine: at or after age 50 Ask your provider if you should receive other immunizations, especially if you have certain medical conditions, such as diabetes or are at increased risk for some diseases such as pneumonia. INFECTIOUS DISEASE SCREENING Screening for hepatitis C: all adults ages 18 to 79 should get a one-time test for hepatitis C. Screening for human immunodeficiency virus (HIV): all people ages 15 to 65 should get a one-time test for HIV. Depending on your lifestyle and medical history, you may need to be screened for infections such as syphilis, chlamydia, and other infections. LUNG CANCER SCREENING You should have an annual screening for lung cancer with low-dose computed tomography (LDCT) if: You are age 50 to 80 years AND You have a 20 pack-year smoking history AND You currently smoke or have quit within the past 15 years OSTEOPOROSIS SCREENING If you are age 50 to 64 and have risk factors for osteoporosis, you should discuss screening with your provider. Risk factors can include long-term steroid use, low body weight, smoking, heavy alcohol use, having a fracture after age 50, or a family history of hip fracture or osteoporosis. Osteoporosis PHYSICAL EXAM All adults should visit their provider from time to time, even if they are healthy. The purpose of these visits is to: Screen for diseases Assess risk of future medical problems Encourage a healthy lifestyle Update vaccinations and other preventive care services Maintain a relationship with a provider in case of an illness Your height, weight, and body mass index (BMI) should be checked at every exam. During your exam, your provider may ask you about: Depression and anxiety Diet and exercise Alcohol and tobacco use Safety, such as use of seat belts and smoke detectors Your medicines and risk for interactions PROSTATE CANCER SCREENING If you're 55 through 69 years old, before having the test, talk to your provider about the pros and cons of having a PSA test. Ask about: Whether screening decreases your chance of dying from prostate cancer. Whether there is any harm from prostate cancer screening, such as side effects from testing or overtreatment of cancer when discovered. Whether you have a higher risk of prostate cancer than others. If you are age 55 or younger, screening is not generally recommended. You should talk with your provider about if you have a higher risk for prostate cancer. Risk factors include: Having a family history of prostate cancer (especially a brother or father) Being If you choose to be tested, the PSA blood test is repeated over time (yearly or less often), though the best frequency is not known. Prostate examinations are no longer routinely done on men with no symptoms. Prostate cancer SKIN EXAM Your provider may check your skin for signs of skin cancer, especially if you're at high risk. People at high risk include those who have had skin cancer before, have close relatives with skin cancer, or have a weakened immune system. TESTICULAR EXAM The [place] Preventive Services Task Force (USPSTF) now recommends against performing testicular self-exams. Doing testicular self-exams has been shown to have little to no benefit. Quality Reporting (2019) Adult ([facility] 138/04/09/68) Smoking risk assessment performed?: Yes Patient Tobacco Use Status: Former Tobacco user Depression screening performed: Yes Screen Results: Yes Negative screen Recommended changes: alcohol moderation Recommended changes not done: EKG (active w cards appt tomorrow ) Systolic BP not done?: No Diastolic BP not done?: Yes BMI screening not done: No BMI High - Follow Up: Yes High-plan Sexual Activity Screening ([facility] 153) Sexually active?: Yes Immunizations (CMS 147, 117) Annual Influenza Vaccine: No Flu Vaccine not done: patient reason Measles Antibody Test: No Mumps Antibody Test: No Rubella Antibody Test: No Varicella Antibody Test: No Anti Hepatitis A IgG Antigen test: No Anti Hepatitis B Virus Surface Ab test: No Fall Risk Screening ([facility] 139) Last assessed Fall Risk: 12/19/24 Fall risk assessment: No Falls in past year Dementia Assessment ([facility] 149) Cognitive assessment recorded: Yes (6 cit wnl) Assessment of cognition with standardized tool: Yes Depression/Bipolar (159/160/161/177) PHQ-9: Total score: 0 Suicide risk assessment performed: Yes Psychotherapy: Yes Ophthalmol:Cataracts Visual Acuity (133) Visual acuity exam performed: Yes (see below ) Coding Level of Care Code Medicare Subsequent (G0439) Est Pt Level 3 (07801) Diagnoses Encounter for subsequent annual wellness visit (AWV) in Medicare patient Z00.00 ACP (advance care planning) Z71.89 Obesity (BMI 30-39.9) E66.9 Influenza vaccination administered at current visit Z23 Prostate cancer C61 Need for Tdap vaccination Z23 History of prostatectomy Z90.79 Alcohol use disorder F10.90 Former smoker Z87.891 CPT Codes Advance Care Planning - Time spent: 16-45 minutes ([id number]) Vision Screening - Vision Screenin - Vision Screening ([id number]) Additional Codes PHQ-9 - 95471 - PHQ-9 Billing: Yes ([id number]) Advance Care Planning Advance Care Planning discussion: Exists, not on file Date of discussion: 12/19/24 Who was present: self Forms completed: Health Care Proxy and MOLST Time spent: 16-45 minutes Actual minutes spent: 16 Did not discuss due to Cultural/Spiritual beliefs: Yes
[2024-12-19 08:03] VITALS: BP 122/70; PULSE 57; RESP 12; TEMP 36.2; O2SAT 99
== END 2024-12-19 08:58 | disposition home or self-care (01) ==
LOC: HO.HMCFM 07:56
PROVIDERS: PCP Family Medicine; Visit Provider Nurse Practitioner Family
DX: Z00.00 Encounter for general adult medical examination without abnormal findings (principal); E66.9 Obesity, unspecified; C61 Malignant neoplasm of prostate; Z68.30 Body mass index [BMI] 30.0-30.9, adult; Z90.79 Acquired absence of other genital organ(s); F10.90 Alcohol use, unspecified, uncomplicated; Z87.891 Personal history of nicotine dependence

== ENCOUNTER → 2024-12-19 07:55 | Outpatient (BNVA) | payer MEDICARE, SELFPAY | PROVIDERS: PCP Family Medicine; Visit Provider Nurse Practitioner Family | DX: Z00.00 Encounter for general adult medical examination without abnormal findings (principal); F10.20 Alcohol dependence, uncomplicated; E78.5 Hyperlipidemia, unspecified; I25.10 Atherosclerotic heart disease of native coronary artery without angina pectoris; E66.9 Obesity, unspecified; R42 Dizziness and giddiness; Z23 Encounter for immunization; Z71.89 Other specified counseling; Z87.891 Personal history of nicotine dependence; Z85.46 Personal history of malignant neoplasm of prostate; Z90.79 Acquired absence of other genital organ(s); Z68.30 Body mass index [BMI] 30.0-30.9, adult | CPT/HCPCS: 90471; 90472; 90656; 90715; 96127; 99497 ==

== ENCOUNTER 2024-12-20 09:32 | Outpatient (AMB) | payer MEDICARE, SELFPAY ==
--- NOTE | 2024-12-20 09:44 | A.OFFVIS_ITS ---
Vital Signs 12/20/24 09:45 Height 5 ft 8 in Weight 194 lb 0.108 oz BMI 29.5 BP 120/74 Blood Pressure Location Lt brachial Position Sitting Pulse 67 Intake Visit Reasons: 6m follow up Intake Note: 6 month follow-up with ekg feeling good Insurance Follow Up Rep Required: No Allergies No Known Allergies Allergy (Verified 12/19/24 08:11) Medication List - Last Reconciled 12/20/24 by Richar Lynn MD albuterol sulfate 90 mcg/actuation (Ventolin HFA) 2 puffs inhalation Q4-6H PRN 30 days aspirin 81 mg PO DAILY atorvastatin 80 mg PO DAILY fluticasone propion-salmeterol 250-50 mcg/dose (Wixela Inhub) 1 inh inhalation Q12H 30 days folic acid 1 mg PO DAILY 90 days mecobalamin (vitamin B12) 2,000 mcg PO DAILY metoprolol succinate ER 50 mg PO DAILY multivitamin 1 tab PO DAILY thiamine HCl (vitamin B1) 100 mg PO DAILY 30 days HPI Comments Details: Emiliano comes for follow-up. Overall he has been doing very well from cardiac perspective. He said more getting into exercise routine as the winter months come in. He has not been exercising as much but doing routine activities around the summertime. Denied any exertional chest pain or shortness of breath. He overall has been taking all his medications. He says lightheadedness symptoms have significantly improved with increase fluid intake. He has not syncopal episodes. Denies any heart failure symptoms. No prolonged palpitation irregular heartbeat. Most recent LDL was well optimized at 55 mg/dL. [facility] Medical History Exertional angina CAD (coronary artery disease) Borderline hyperlipidemia Umbilical hernia Bloating Borderline diabetes Surgical History S/P CABG x 3 H/O colonoscopy Family History Father Angina pectoris Mother Asthma Social History Household Members: Family and None Housing: House Alcohol intake: current Alcohol intake frequency: 3 or more drinks per day Alcohol type: beer Patient Tobacco Use Status: Former Tobacco user Tobacco use type: Cigarette e-Cigarette/Vaping Use: Never Used Second Hand Smoke Exposure: No service: No Current occupational status: retired Current occupational exposures/hazards: No Cognitive needs: No Hearing needs: No Vision needs: No Review of Systems Const Denies chills, Denies fatigue, Denies fever(s), Denies frequent falls, Denies weakness, Denies weight gain and Denies weight loss ENT Denies dizziness Card Denies chest pain, Denies leg edema, Denies lightheadedness, Denies palpitations, Denies dyspnea, Denies dyspnea on exertion, Denies orthopnea and Denies other (loss of consciousness) Resp Denies cough, Denies dyspnea and Denies dyspnea on exertion GI Denies hematochezia and Denies change in stool character Musc Denies abnormal gait, Denies muscle weakness, Denies numbness, Denies radiating pain into limb and Denies tingling Neuro Denies abnormal gait, Denies dizziness, Denies frequent falls, Denies numbness, Denies tingling and Denies weakness Endo Denies fatigue and Denies palpitations Physical Exam Vital Signs: Last Vital Signs Pulse 67 12/20/24 09:45 BP 120/74 12/20/24 09:45 BMI result Body Mass Index 29.5 Const General: cooperative, comfortable, no acute distress, alert and Physically active Nutritional Appearance: average body habitus Orientation/consciousness: patient oriented x3 Neck Neck: Yes trachea midline, Yes supple and Yes no JVD Chest Chest palpation & inspection: other (Well-healed sternotomy scar) Resp Effort & Inspection: normal respiratory effort Auscultation: clear to auscultation bilaterally Cardio Jugular venous distension: no JVD Palpation: normal PMI Rate: regular rate Rhythm: regular rhythm Heart sounds: S1 normal heart sound present, S2 normal heart sound present, no click, no gallops, no murmurs and no rubs GI Auscultation: normal bowel sounds Skin General skin exam: no rashes or lesions noted Neuro General: patient oriented x3 and no focal motor deficits Extrem General: Yes no clubbing, cyanosis or edema Office Procedures EKG Details: EKG shows normal sinus rhythm with normal EKGs [id number], Complete Assessment & Plan Assessment & Plan (1) CAD (coronary artery disease): Code(s): I25.10 - Atherosclerotic heart disease of [place] coronary artery without angina pectoris Category: Medical Plan: CAD with three-vessel coronary artery bypass grafting last year doing well. He has been taking all his medications. We discussed about pathophysiology of coronary atherosclerosis as well as coronary artery bypass grafting which was interested in. We did discuss management. Importance of continued aggressive risk factor modification was discussed. Continue low-dose aspirin therapy for life. Continue high-intensity statin therapy with LDL well optimized at this point time. Importance of avoiding alcohol use was discussed. Importance of regular physical activity was discussed. Overall aggressive medical therapy to improve patency of the surgically implanted grafts as well as to avoid cardiovascular events was discussed in details. Blood pressure is well optimized. His orthostatic symptoms have improved significantly with increase fluid intake and advised to continue the same. Will follow up in the clinic otherwise in 1 year's time, sooner PRN. Thank you for allowing me to partake in his care Coding Level of Care Code Est Pt Level 4 (87197) Complex EM visit Add On G2211 Diagnoses CAD (coronary artery disease) I25.10 CPT Codes EKG - CPT: 69956-[id number], Complete ([id number])
[2024-12-20 09:45] VITALS: BP 120/74; PULSE 67; BMI 29.5
== END 2024-12-20 10:02 | disposition home or self-care (01) ==
LOC: HO.HCS 09:32
PROVIDERS: PCP Family Medicine; Visit Provider Internal Medicine Cardiovascular Disease
DX: I25.10 Atherosclerotic heart disease of native coronary artery without angina pectoris (principal)
CPT/HCPCS: 93010; 99214; G2211

== ENCOUNTER → 2024-12-20 09:32 | Outpatient (BNVA) | payer MEDICARE, SELFPAY | PROVIDERS: PCP Family Medicine; Visit Provider Internal Medicine Cardiovascular Disease | DX: I25.10 Atherosclerotic heart disease of native coronary artery without angina pectoris (principal) | CPT/HCPCS: 93005; 99212 ==